=== PATIENT | female | born 1960 | race Caucasian/White ===

== ENCOUNTER 2017-05-25 15:47 | Inpatient (IN) | payer MEDICAID ==
[~2017-05-25] VITALS: Ht 157.5 cm; Wt 74.0 kg
[2017-05-25] VITALS (8 sets, daily range): BP systolic 94–140; BP diastolic 52–90
[~2017-05-25 15:47] MED LIST: ACID1TAB PO; CLIN300C11 PO; CLON1TAB3 PO; CLOP75TA28 PO; DICL100G31 TOP; DIVA250T4 PO; DIVA500T7 PO; DULO30CA48 PO; ERGO50006 PO; FENO145T20 PO; FLUT16SP22 NS; FLUT1AER INH; FURO40TA4 PO; HYDR-3820 PO; HYDR4TAB PO; INSU500V SC; INSU500V SQ; LIPA1CAP PO; LUBI24CA6 PO; METO10TA3 PO; OMEG-105 PO; PANT40TA3 PO; POLY255P PO; POTA10TA10 PO; PRED10TA22 PO; RAME8TAB18 PO; ROSU20TA28 PO; SPIR50TA2 PO; TOPI200T8 PO; ZOLP10TA5 PO
--- NOTE | 2017-05-25 16:02 | ED General ---
General Stated Complaint: HYPOGLYCEMIA Source of Information: Patient, EMS Exam Limitations: Physical Impairments History of Present Illness Time Seen by Provider: 15:47 Initial Comments Here by EMS with report of altered mental status. Family thought that the patient was hypoglycemic. Blood sugar was checked and was in the 80s. They were able to get her to drink some orange juice and blood sugar came up to 110 per EMS. Patient would arouse to strong verbal or sternal rubs. Otherwise does not answer questions. No family here for information. All information per EMS. Apparently she was here and discharged a few days ago after being hospitalized for sepsis. Patient apparently did not want to come to the ER but family was able to talk her into it and ambulance transported. Last known well time was yesterday evening at some point. Apparently she had a fall yesterday per family member who arrived later. Apparently the patient's blood sugar was greater than 500 last night. Timing/Duration: 24 Hours Severity: Moderate, Severe Allergies and Home Medications Allergies Coded Allergies: adhesive tape (Verified Allergy, Unknown, 05/15/17) morphine (Verified Allergy, Unknown, 05/15/17) Home Medications Clindamycin HCl 300 Mg Capsule, 600 MG PO TID for 5 Days, #30 Prescribed by: KARINA DOMÍNGUEZ on 05/20/17 1101 Clonazepam 1 Mg Tablet, 1 MG PO Q8H PRN for ANXIETY, (Reported) Clopidogrel Bisulfate 75 Mg Tablet, 75 MG PO DAILY, (Reported) Diclofenac Sodium 100 Gm Gel..gram., 4 GM TOP DAILY, (Reported) Divalproex Sodium 500 Mg Tablet.dr, 500 MG PO BID, (Reported) TAKES ALONG WITH 250MG TABLET Divalproex Sodium 250 Mg Tablet.dr, 250 MG PO BID, (Reported) TAKES ALONG WITH 500MG TABLET Duloxetine HCl 30 Mg Capsule.dr, 30 MG PO DAILY, (Reported) Ergocalciferol (Vitamin D2) 50,000 Unit Capsule, 50,000 UNITS PO WEEKLY, ( Reported) Fenofibrate Nanocrystallized 145 Mg Tablet, 145 MG PO DAILY, (Reported) Fluticasone Propionate 16 Gm [employer].susp, 2 SPRAYS NS DAILY PRN for ALLERGIES, ( Reported) Fluticasone/Vilanterol 1 Each Blst.w.dev, 1 PUFF INH DAILY, (Reported) Furosemide 40 Mg Tablet, 40 MG PO DAILY, (Reported) Hydrocodone/Acetaminophen 1 Each Tablet, 1 TAB PO Q6H PRN for PAIN-MODERATE, ( Reported) Insulin Regular, Human 20 Ml Soln, 37 UNITS SC HS, (Reported) Insulin Regular, Human 20 Ml Soln, 17 UNITS SQ 1200, (Reported) Insulin Regular, Human 20 Ml Soln, 22 UNITS SQ 1700, (Reported) L. Acidophilus/Bulgaricus 1 Each Tablet, 1 TAB.CHEW PO AC for 14 Days, #42 Prescribed by: KARINA DOMÍNGUEZ on 05/20/17 1101 Lipase/Protease/Amylase 1 Each Capsule.dr, 4,200 UNITS PO TIDAC, (Reported) Lubiprostone 24 Mcg Capsule, 24 MCG PO BID, (Reported) Metoclopramide HCl 10 Mg Tablet, 10 MG PO QID, (Reported) [place]-3 Acid Ethyl Esters 1 Gm Capsule, 2 GM PO BID, (Reported) TAKES 2 (1GM) CAPSULES Pantoprazole Sodium 40 Mg Tablet.dr, 40 MG PO DAILY, (Reported) Polyethylene Glycol 3350 255 Gm Powder, 17 GM PO DAILY PRN for CONSTIPATION-2ND LINE, (Reported) Potassium Chloride 10 Meq Tablet.er, 30 MEQ PO BID, (Reported) TAKES 3 (10MEQ) TABLETS Prednisone 10 Mg Tab.ds.pk, 10 MG PO DAILY, #21 Take 6 tabs(60mg)daily,decrease by 1 tab(10MG)daily. Prescribed by: KARINA DOMÍNGUEZ on 05/20/17 1101 Ramelteon 8 Mg Tablet, 8 MG PO HS, (Reported) Rosuvastatin Calcium 20 Mg Tablet, 20 MG PO HS, (Reported) Spironolactone 50 Mg Tablet, 50 MG PO DAILY, (Reported) Topiramate 200 Mg Tablet, 200 MG PO BID, (Reported) Zolpidem Tartrate 10 Mg Tablet, 10 MG PO HS, (Reported) Constitutional: see HPI, weakness Other Unable to complete review of systems due to altered mental status. Past Hwabtdk-Xmbpwf-Dfhwbc Hx Patient Social History Smoking Status: Current Everyday Smoker Type Used: Cigarettes Recent Hopitalizations: No Seasonal Allergies Seasonal Allergies: Yes Surgeries History of Surgeries: Yes Surgeries: Gallbladder, Hysterectomy, Orthopedic Respiratory History of Respiratory Disorde: Yes Respiratory Disorders: COPD Cardiovascular History of Cardiac Disorders: Yes (STENT X4 ?) Cardiac Disorders: High Cholesterol, Hypertension Neurological History of Neurological Disord: Yes Neurological Disorders: Seizure Disorder, Stroke Genitourinary History of Genitourinary Disor: Yes Genitourinary Disorders: Bladder Infection, Renal Failure Gastrointestinal History of Gastrointestinal Di: Yes Gastrointestinal Disorders: Gastroesophageal Reflux, Pancreatitis Musculoskeletal History of Musculoskeletal Dis: Yes Musculoskeletal Disorders: Arthritis Endocrine History of Endocrine Disorders: Yes Endocrine Disorders: Diabetes, Non-Insulin dep HEENT History of HEENT Disorders: No Cancer History of Cancer: No Psychosocial History of Psychiatric Problem: Yes Behavioral Health Disorders: Depression Integumentary History of Skin or Integumenta: No Reviewed Nursing Assessment Reviewed/Agree w Nursing PMH: Yes Family Medical History Significant Family History: No Pertinent Family Hx Other History per records as patient is unable to give history. Physical Exam-Suspected Sepsis Physical Exam Vital Signs Vital Sign - Last 12Hours 05/25/17 16:05 Temp 98.2 Pulse 68 Resp 14 B/P (MAP) 125/73 Pulse Ox 90 O2 Delivery Room Air Capillary Refill : General Appearance: No Apparent Distress, WD/WN HEENT: PERRL/EOMI, Pharynx Normal Neck: Non Tender, Supple Respiratory: Lungs Clear, Normal Breath Sounds Cardiovascular: Regular Rate, Rhythm, No Murmur Gastrointestinal: Non Tender, Soft Back: Normal Inspection, No CVA Tenderness, No Vertebral Tenderness Extremity: Normal Capillary Refill, No Calf Tenderness Neurologic/Psychiatric: Other (response to strong verbal and/or light sternal rub and mumbling. She did answer her name.) Skin: normal color, warm/dry Focused Exam Evaluation Lactate Level Laboratory Tests 05/25/17 16:33: Lactic Acid Level 1.98 Lactic Acid Level Laboratory Tests Test 05/25/17 16:33 Lactic Acid Level 1.98 MMOL/L (0.50-2.00) Date of ETT Placement: May 15, 2017 Time of ETT Placement: 1312 Progress/Results/Core Measures Suspected Sepsis SIRS Temperature: Pulse: Respiratory Rate: Laboratory Tests 05/25/17 16:33: White Blood Count 21.3H Blood Pressure / Mean: Laboratory Tests 05/25/17 16:33: Lactic Acid Level 1.98 Laboratory Tests 05/25/17 16:33: Creatinine 0.97, INR Comment 1.0, Platelet Count 587H, Total Bilirubin 0.3 Results/Orders Lab Results Laboratory Tests Test 05/25/17 16:20 05/25/17 16:33 05/25/17 16:35 05/25/17 16:46 Range/Units Blood Gas Puncture Site RIGHT RADIAL Blood Gas Patient Temperature 97.8 Arterial Blood pH 7.44 H 7.37-7.43 Arterial Blood Partial Pressure CO2 48 H 35-45 MMHG Arterial Blood Partial Pressure O2 58 L 79-93 MMHG Arterial Blood HCO3 32 H 23-27 MMOL/L Arterial Blood Total CO2 33.2 H 21.0-31.0 MMOL/L Arterial Blood Oxygen Saturation 92 L 94-100 % Arterial Blood Base Excess 7.3 H -2.5-2.5 MMOL/L Shantanu Test POSITIVE Blood Gas Ventilator Setting NO Blood Gas Inspired Oxygen ROOM AIR White Blood Count 21.3 H 4.3-11.0 10^3/uL Red Blood Count 5.55 4.35-5.85 10^6/uL Hemoglobin 13.4 11.5-16.0 G/DL Hematocrit 43 35-52 % Mean Corpuscular Volume 78 L 80-99 FL Mean Corpuscular Hemoglobin 24 L 25-34 PG Mean Corpuscular Hemoglobin Concent 31 L 32-36 G/DL Red Cell Distribution Width 18.5 H 10.0-14.5 % Platelet Count 587 H 130-400 10^3/uL Mean Platelet Volume 10.4 7.4-10.4 FL Neutrophils (%) (Auto) 81 H 42-75 % Lymphocytes (%) (Auto) 12 12-44 % Monocytes (%) (Auto) 6 0-12 % Eosinophils (%) (Auto) 1 0-10 % Basophils (%) (Auto) 0 0-10 % Neutrophils # (Auto) 17.3 H 1.8-7.8 X 10^3 Lymphocytes # (Auto) 2.6 1.0-4.0 X 10^3 Monocytes # (Auto) 1.2 H 0.0-1.0 X 10^3 Eosinophils # (Auto) 0.1 0.0-0.3 10^3/uL Basophils # (Auto) 0.0 0.0-0.1 10^3/uL Neutrophils % (Manual) 76 % Lymphocytes % (Manual) 22 % Monocytes % (Manual) 2 % Eosinophils % (Manual) 0 % Basophils % (Manual) 0 % Band Neutrophils 0 % Blood Morphology Comment NORMAL Prothrombin Time 13.2 12.2-14.7 SEC INR Comment 1.0 0.8-1.4 Activated Partial Thromboplast Time 25 24-35 SEC D-Dimer < 0.27 0.00-0.49 UG/ML Sodium Level 142 135-145 MMOL/L Potassium Level 3.5 L 3.6-5.0 MMOL/L Chloride Level 98 98-107 MMOL/L Carbon Dioxide Level 32 21-32 MMOL/L Anion Gap 12 5-14 MMOL/L Blood Urea Nitrogen 26 H 7-18 MG/DL Creatinine 0.97 0.60-1.30 MG/DL Estimat Glomerular Filtration Rate 59 BUN/Creatinine Ratio 27 Glucose Level 50 *L 70-105 MG/DL Lactic Acid Level 1.98 0.50-2.00 MMOL/L Calcium Level 9.3 8.5-10.1 MG/DL Total Bilirubin 0.3 0.1-1.0 MG/DL Aspartate Amino Transf (AST/SGOT) 14 5-34 U/L Alanine Aminotransferase (ALT/SGPT) 11 0-55 U/L Alkaline Phosphatase 58 40-136 U/L Total Protein 6.1 L 6.4-8.2 GM/DL Albumin 3.2 3.2-4.5 GM/DL Urine Color YELLOW Urine Clarity CLEAR Urine pH 7 5-9 Urine Specific [place] 1.010 L 1.016-1.022 Urine Protein NEGATIVE NEGATIVE Urine Glucose (UA) 3+ H NEGATIVE Urine Ketones NEGATIVE NEGATIVE Urine Nitrite NEGATIVE NEGATIVE Urine Bilirubin NEGATIVE NEGATIVE Urine Urobilinogen NORMAL NORMAL MG/DL Urine Leukocyte Esterase NEGATIVE NEGATIVE Urine RBC (Auto) NEGATIVE NEGATIVE Urine RBC NONE /HPF Urine WBC 2-5 /HPF Urine Crystals NONE /LPF Urine Bacteria NEGATIVE /HPF Urine Casts NONE /LPF Urine Mucus NEGATIVE /LPF Urine Yeast LARGE H /HPF Urine Culture Indicated YES My Orders Orders - JUAN JOSÉ YEUNG MD Cbc With Automated Diff (05/25/17 15:57) Comprehensive Metabolic Panel (05/25/17 15:57) Lactic Acid Analyzer (05/25/17 15:57) Blood Culture (05/25/17 15:57) Sputum Culture (05/25/17 15:57) Ua Culture If Indicated (05/25/17 15:57) Protime With Inr (05/25/17 15:57) Partial Thromboplastin Time (05/25/17 15:57) Chest 1 View, Ap/Pa Only (05/25/17 15:57) O2 (05/25/17 15:57) Saline Lock/Iv-Start (05/25/17 15:57) Vital Signs Adult Sepsis Patie Q1HR (05/25/17 15:57) Remove Rings In Anticipation O (05/25/17 15:57) Fibrin Degradation Products (05/25/17 15:57) Catheter(Urinary) Insert & Ass 03,15 (05/25/17 15:57) Vital Signs - Stroke Q15M (05/25/17 15:57) Monitor-Rhythm Ecg Trace Only (05/25/17 15:57) Dysphagia Screening Tool (05/25/17 15:57) Arterial Blood Gas (05/25/17 16:07) Naloxone Injection (Narcan Injection) (05/25/17 16:45) Manual Differential (05/25/17 16:33) Urine Culture (05/25/17 16:46) Ct Head Wo-R/O Stroke (05/25/17 17:05) D50w (Emergency) Syringe (Dextrose 50% 5 (05/25/17 17:15) D50w (Emergency) Syringe (Dextrose 50% 5 (05/25/17 16:58) Ct Angio Head/Neck (05/25/17 17:40) Valproic Acid (05/25/17 18:05) Medications Given in ED Current Medications Medications Dose Ordered Sig/Marsha Route Start Time Stop Time Status Last Admin Dose Admin Naloxone HCl 1 mg ONCE ONCE IV 05/25/17 16:45 05/25/17 16:46 DC 05/25/17 16:50 1 MG Vital Signs/I&O Vital Sign - Last 12Hours 05/25/17 16:05 Temp 98.2 Pulse 68 Resp 14 B/P (MAP) 125/73 Pulse Ox 90 O2 Delivery Room Air Capillary Refill : Progress Note : Progress Note Seen and evaluated on arrival by EMS. IV via port access by EMS. Labs, ABG, EKG, chest x-ray, blood cultures and lactic acid ordered. We will evaluate for stroke as well as CT head. Monitor patient. 1700: Narcan 1 mg IV given and had no effect. Blood sugar noted to be 50 and chemistry that was delayed draw due to difficulty getting blood draw. D50 [address] Domínguez at bedside and is writing orders. Patient will be admitted for altered mental status. Family at bedside. I did discuss with him about the case. Last known well time was last night. Outside of TPA window if stroke his the event. To be admitted to the ICU. Family at bedside agrees with plan. Patient is maintaining her own airway and O2 sats remained greater than 93 percent on 2 L via nasal cannula. Respiratory rate 12 to 15. Blood pressure 115/69. 1740: Discussed with radiology. There is a question of a filling defect on the internal carotid artery. Radiology is recommending contrast study for MRI. We will attempt CT angiogram head and neck. Patient will need IV access. 1755: Dr. Domínguez updated. To be admitted to ICU. Family agrees with plan. ECG Initial ECG Impression Date: May 25, 2017 Initial ECG Impression Time: 15:52 Initial ECG Rate: 68 Initial ECG Rhythm: Normal Sinus Comment Sinus rhythm with normal axis. No evidence of ST elevation PR. Similar to previous of 05/15/17. Interpreted by me. Diagnostic Imaging Diagonstic Imaging: Xray Plain Films/CT/US/NM/MRI: chest Comments [place], [place] NAME: MARINO GREGORY MED REC#: [id number] PT STATUS: REG ER : 1960 PHYSICIAN: JUAN JOSÉ YEUNG MD ADMIT DATE: 05/25/17/ER Draft Date of Exam:05/25/17 CHEST 1 VIEW, AP/PA ONLY INDICATION: Unresponsive patient. COMPARISON: 05/18/2017. FINDINGS: A right subclavian line is at the SVC, stable. Infiltrate in the right lung while present has substantially improved from the previous. There is some mild left basilar atelectasis. IMPRESSION: Significant improvements in infiltrate in the right lower greater than upper lobes with no adverse development. Dictated on workstation # [id number] Dict: 05/25/17 1644 Trans: 05/25/17 1652 [facility] [id number] Interpreted by: AWAIS STAFFORD Electronically signed by: Diagonstic Imaging: CT Plain Films/CT/US/NM/MRI: head Comments NAME: MARINO GREGORY MED REC#: [id number] PT STATUS: REG ER : 1960 PHYSICIAN: JUAN JOSÉ YEUNG MD ADMIT DATE: 05/25/17/ER Draft Date of Exam:05/25/17 CT HEAD WO-R/O STROKE INDICATION: Unresponsive in emergency department. EXAMINATION: Multiple contiguous axial CT images of the head were obtained. COMPARISON: Study of 07/15/2016. FINDINGS: Ventricles and sulci remain diffusely prominent. There is no evidence of hemorrhage. There is no abnormal mass effect or shift of midline structures. There is asymmetry in the appearance of the distal internal carotid arteries with artifact in this region resulting in limited evaluation. There is no territorial infarct. There is no abnormal mass effect or shift of midline structures. Calvarium is intact and the visualized paranasal sinuses are clear. IMPRESSION: Asymmetry in the appearance of distal internal carotid arteries. This could be related to abnormal flow. If indicated, contrast-enhanced study or MRI could be considered. Dictated on workstation # [id number] Dict: 05/25/17 1734 Trans: 05/25/17 1739 [facility] [id number] Interpreted by: AWAIS FUNG MD Electronically signed by: Reviewed: Reviewed/Discussed Departure Communication (Admissions) Time/Spoke to Admitting Phy: 16:45 Impression Impression: Primary Impression: Altered mental status Qualified Codes: R40.1 - Stupor Disposition: 09 ADMITTED INPATIENT Condition: Stable Admissions Decision to Admit Reason: Admit from ER (General) Decision to Admit/Date: May 25, 2017 Time/Decision to Admit Time: 16:45 Departure-Patient Inst. Referrals: NO,LOCAL PHYSICIAN (PCP/Family) Primary Care Physician JUAN JOSÉ YEUNG MD May 25, 2017 16:02
[2017-05-25 16:29] LABS: ABG BASE EXCESS 7.3 MMOL/L (-2.5-2.5); ABG HCO3 32 MMOL/L (23-27); ABG OXYGEN SATURATION 92 % (94-100); ABG PCO2 48 MMHG (35-45); ABG PH 7.44 (7.37-7.43); ABG PO2 58 MMHG (79-93); ABG TCO2 33.2 MMOL/L (21.0-31.0)
[2017-05-25 16:30] LABS: ALLENS TEST POSITIVE; PATIENT TEMP 97.8
[2017-05-25 16:42] LABS: BASOPHILS % (AUTO) 0 % (0-10); EOSINOPHILS # (AUTO) 0.1 10^3/uL (0.0-0.3); EOSINOPHILS % (AUTO) 1 % (0-10); LYMPHOCYTES # (AUTO) 2.6 X 10^3 (1.0-4.0); LYMPHOCYTES % (AUTO) 12 % (12-44); MEAN CORPUSCULAR HEMOGLOBIN 24 PG (25-34); MEAN CORPUSCULAR HGB CONC 31 G/DL (32-36); MEAN CORPUSCULAR VOLUME 78 FL (80-99); MEAN PLATELET VOLUME 10.4 FL (7.4-10.4); MONOCYTES # (AUTO) 1.2 X 10^3 (0.0-1.0); MONOCYTES % (AUTO) 6 % (0-12); NEUTROPHILS # (AUTO) 17.3 X 10^3 (1.8-7.8); NEUTROPHILS % (AUTO) 81 % (42-75); PLATELET COUNT 587 10^3/uL (130-400); RED BLOOD COUNT 5.55 10^6/uL (4.35-5.85); RED CELL DISTRIBUTION WIDTH 18.5 % (10.0-14.5); WHITE BLOOD COUNT 21.3 10^3/uL (4.3-11.0)
[2017-05-25] MEDS ORDERED: NALOXONE 2 MG/2 ML (NARCAN) SYR IV ONE (16:45)
[2017-05-25 16:50] LABS: PROTHROMBIN TIME PATIENT 13.2 SEC (12.2-14.7)
[2017-05-25 16:51] LABS: PARTIAL THROMBOPLASTIN TIME 25 SEC (24-35)
[2017-05-25 16:53] LABS: BILIRUBIN,URINE NEGATIVE (NEGATIVE); KETONES,URINE NEGATIVE (NEGATIVE); LEUKOCYTE ESTERASE ,URINE NEGATIVE (NEGATIVE); NITRITE,URINE NEGATIVE (NEGATIVE); PH,URINE 7 (5-9); PROTEIN,URINE NEGATIVE (NEGATIVE); UROBILINOGEN,URINE NORMAL (NORMAL)
--- NOTE | 2017-05-25 16:53 | Diagnostic Imaging Report ---
INDICATION: Unresponsive patient. COMPARISON: 05/18/2017. FINDINGS: A right subclavian line is at the SVC, stable. Infiltrate in the right lung while present has substantially improved from the previous. There is some mild left basilar atelectasis. IMPRESSION: Significant improvements in infiltrate in the right lower greater than upper lobes with no adverse development. Dictated by: Dictated on workstation # [id number]
--- NOTE | 2017-05-25 16:54 | History & Physical-Hospitalist ---
HPI History of Present Illness: HPI/Chief Complaint Pt is a 56yoCF known to me from recent admission for sepsis 2/2 CAP with a PMH of HTN, CAD and [place], chronic opoid use, and seizure disorder who presented to the ER for decreased LOC. She is unable to provide me any history due to her mentation. History is obtained from ED records and previous records. She was admitted this week for acute respiratory failure due to CAP and accidental narcotic overdose. She necessitated intubation. She apparently worsened her mentation today and family thought her blood sugar was low. They called EMS due to her decreased LOC and gave her some orange juice. Her FSBS was 88 per EMS and improved to low 100s on recheck. She was given 0.4mg of Narcan with minimal improvement. She was admitted to the ICU for her decreased LOC. Daughter arrived after initial evaluation and reported that her mom had not had any medications today besides her depakote. Pt has been staying with her boyfriend and he called the daughter and stated that patient fell at either 11pm last night or 11am this morning and then had been somnolent. Daughter also thinks he may have given her too much insulin on accident as she's now on the concentrated U-500 version because he called her as said that when he checked patient's blood sugar it was 38 before he called EMS. Exam Limitations: clinical condition Date Seen 05/25/17 Time Seen by Provider: 16:30 Attending Physician Karina Domínguez PCP No,Local Physician Referring Physician Date of Admission Home Medications & Allergies Home Medications Reviewed patient Home Medication Reconciliation Form Allergies Allergies Coded Allergies adhesive tape (Verified Allergy, Unknown, 05/15/17) morphine (Verified Allergy, Unknown, 05/15/17) Past Uijsrmd-Fxksra-Kdklua Hx Patient Social History Alcohol Use: Denies Use Recreational Drug Use: No Smoking Status: Current Everyday Smoker Type Used: Cigarettes Recent Foreign Travel: No Contact w/other who traveled: No Recent Hopitalizations: No Recent Infectious Disease Expo: No Immunizations Up To Date Tetanus Booster (TDap): Unknown Seasonal Allergies Seasonal Allergies: Yes Surgeries Yes Gallbladder, Hysterectomy, Orthopedic Respiratory Yes COPD, Sleep Apnea Cardiovascular Yes (STENT X4 ?) High Cholesterol, Hypertension Neurological Yes Seizure Disorder, Stroke Genitourinary Yes Bladder Infection, Renal Failure Gastrointestinal Yes Gastroesophageal Reflux, Pancreatitis Musculoskeletal Yes Arthritis Endocrine History of Endocrine Disorders: Yes Endocrine Disorders: Diabetes, Non-Insulin dep HEENT History of HEENT Disorders: No Cancer No Psychosocial History of Psychiatric Problem: Yes Behavioral Health Disorders: Depression Integumentary History of Skin or Integumenta: No Review of Systems ROS-Unable to Obtain: Obtunded Constitutional: no symptoms reported Physical Exam Physical Exam Vital Signs Vital Sign - Last 12Hours 05/25/17 16:05 Temp 98.2 Pulse 68 Resp 14 B/P (MAP) 125/73 Pulse Ox 90 O2 Delivery Room Air Capillary Refill : Less Than 3 Seconds General Appearance: Other (minimally responsive) HEENT: PERRL/EOMI, Moist Mucous Membranes, No Scleral Icterus (L), No Scleral Icterus (R) Neck: Non Tender, Supple Respiratory: Lungs Clear, Normal Breath Sounds Cardiovascular: Regular Rate, Rhythm, No JVD, No Murmur, Normal Peripheral Pulses Gastrointestinal: Normal Bowel Sounds, Non Tender, Soft Extremity: Normal Capillary Refill Neurologic/Psychiatric: Other (arouses to very loud verbal stimuli and physical stimuli) Skin: Normal Color, Warm/Dry, No Mottled Results Results/Procedures Lab Laboratory Tests 05/25/17 16:33 Assessment/Plan Admission Diagnosis Altered Mental Status Diagnosis/Problems Diagnosis/Problems (1) Altered mental status Assessment & Plan: Etiology unclear at this time Will get CT head Does have elevated white count but no other signs of sepsis No significant hypercapnea on ABG, does not appear to be overdose Likely due to hypoglycemia from possible inadverent overdose on insulin eICU consulted overnight Qualifiers: Qualified Codes: R40.1 - Stupor (2) Hypoglycemia Status: Acute Assessment & Plan: D50 given in ER Will start on D51/2NS overnight SSI ordered if needed as daughter reports BS normally very high (3) Essential (primary) hypertension Status: Chronic (4) Seizure disorder Status: Chronic Assessment & Plan: Depakote level pending Only medicine given today (5) Leukocytosis Status: Acute Assessment & Plan: No signs of infection (UA clean, no fever, CXR slightly improved from last admission per my read) Trend Recently finished steroids (6) Prophylactic measure Assessment & Plan: NPO given mentation D5 1/2NS 20KCL at 100ml/hr KARINA DOMÍNGUEZ MD May 25, 2017 16:53
[2017-05-25 16:58] LABS: ALBUMIN 3.2 GM/DL (3.2-4.5); BILIRUBIN,TOTAL 0.3 MG/DL (0.1-1.0); CALCIUM 9.3 MG/DL (8.5-10.1); CREATININE SERUM 0.97 MG/DL (0.60-1.30); POTASSIUM 3.5 MMOL/L (3.6-5.0); TOTAL PROTEIN 6.1 GM/DL (6.4-8.2)
[2017-05-25] MEDS ORDERED: DEXTROSE 50% 50 ML (IMS) SYR ONE (16:58)
[2017-05-25 17:04] LABS: YEAST,URINE LARGE /HPF
[2017-05-25 17:14] LABS: BAND NEUTROPHILS 0 %; BASOPHILS % (MANUAL) 0 %; EOSINOPHILS % (MANUAL) 0 %; LYMPHOCYTES % (MANUAL) 22 %; NEUTROPHILS % (MANUAL) 76 %
[2017-05-25] MEDS ORDERED: DEXTROSE 50% 50 ML (IMS) SYR IV ONE (17:15)
--- NOTE | 2017-05-25 17:39 | Diagnostic Imaging Report ---
INDICATION: Unresponsive in emergency department. EXAMINATION: Multiple contiguous axial CT images of the head were obtained. COMPARISON: Study of 07/15/2016. FINDINGS: Ventricles and sulci remain diffusely prominent. There is no evidence of hemorrhage. There is no abnormal mass effect or shift of midline structures. There is asymmetry in the appearance of the distal internal carotid arteries with artifact in this region resulting in limited evaluation. There is no territorial infarct. There is no abnormal mass effect or shift of midline structures. Calvarium is intact and the visualized paranasal sinuses are clear. IMPRESSION: Asymmetry in the appearance of distal internal carotid arteries. This could be related to abnormal flow. If indicated, contrast-enhanced study or MRI could be considered. Dictated by: Dictated on workstation # [id number]
[2017-05-25] MEDS ORDERED: IOHEXOL 350 MG/ML 100 ML (OMNIPAQUE 350) VIAL IV ONE (18:45)
[2017-05-25] MEDS ORDERED: NS 100 ML (IVPB) BAG IV ONE (18:45)
--- NOTE | 2017-05-25 19:10 | Diagnostic Imaging Report ---
PROCEDURE: CT angiography of the head and CT angiography of the neck with and without contrast. TECHNIQUE: Contiguous noncontrast images were obtained from the skull base through the vertex. After intravenous contrast administration, helical CT angiography of the neck was performed. Source data was reformatted into multiple MIP projections. Delayed post contrast acquisition was also obtained. INDICATION: Unresponsive and abnormal CT scan of the head. CTA head: There is good opacification of the distal internal carotid arteries and the basilar artery without stenosis or filling defect. Middle, anterior and posterior cerebral arteries are also patent. There is no evidence of aneurysm or vascular malformation. No abnormal contrast enhancement is identified. IMPRESSION: Unremarkable CT of the head. CTA neck: There is a normal three-vessel branching pattern arising from the aortic arch. Note is made of groundglass opacity throughout the visualized lung apices and mildly prominent mediastinal lymph nodes. Carotid and vertebral arteries are widely patent in the neck without evidence of significant stenosis. There is no occlusion or filling defect identified. No neck fluid collection or hematoma is identified. IMPRESSION: No CTA evidence of acute vascular abnormality in the neck. Note is made of groundglass opacity in the lung apices which may be related to pneumonitis or possible scarring. There are also mildly prominent lymph nodes in the upper mediastinum. Dictated by: Dictated on workstation # [id number]
[2017-05-25] MEDS ORDERED: MELATONIN 3 MG TABLET PO PRN (19:45)
[2017-05-25] MEDS ORDERED: ACETAMINOPHEN 500 MG TAB (TYLENOL) PO PRN (19:45)
[2017-05-25] MEDS: D5 1/2 NS W/KCL 20 MEQ/L 1,000 ML IV SCH (19:57)
[2017-05-25] MEDS ORDERED: RT-ALBUTEROL SULF 2.5 MG/3 ML PRE-MIX VIAL IH PRN (20:00)
[2017-05-25] MEDS ORDERED: RT-ALBUTEROL SULF 2.5 MG/3 ML PRE-MIX VIAL ONE (20:33)
[2017-05-25] MEDS: RT-ALBUTEROL SULF 2.5 MG/3 ML PRE-MIX VIAL IH SCH (20:53)
[2017-05-25] MEDS: inSUlin ASPART (NovoLOG) 1 UNIT/0.01 ML (CHARGE PER UNIT) SC SCH (21:09)
[2017-05-26] VITALS (13 sets, daily range): BP systolic 91–129; BP diastolic 58–74
[2017-05-26] MEDS: RT-ALBUTEROL SULF 2.5 MG/3 ML PRE-MIX VIAL IH SCH ×4 (03:00→22:06)
[2017-05-26 04:55] LABS: ALANINE AMINOTRANSFERASE 9 U/L (0-55); ALBUMIN 2.9 GM/DL (3.2-4.5); ANION GAP 8 MMOL/L (5-14); ASPARTATE AMINO TRANSFERASE 11 U/L (5-34); BILIRUBIN,TOTAL 0.3 MG/DL (0.1-1.0); BLOOD UREA NITROGEN 26 MG/DL (7-18); BUN/CREATININE RATIO 28; CARBON DIOXIDE 27 MMOL/L (21-32); CHLORIDE 102 MMOL/L (98-107); CREATININE SERUM 0.94 MG/DL (0.60-1.30); GFR ESTIMATED > 60; GLUCOSE 224 MG/DL (70-105); MAGNESIUM 1.3 MG/DL (1.8-2.4); PHOSPHORUS 2.8 MG/DL (2.3-4.7); SODIUM 137 MMOL/L (135-145); TOTAL PROTEIN 5.4 GM/DL (6.4-8.2)
[2017-05-26 05:00] LABS: BASOPHILS % (AUTO) 0 % (0-10); EOSINOPHILS # (AUTO) 0.2 10^3/uL (0.0-0.3); EOSINOPHILS % (AUTO) 1 % (0-10); LYMPHOCYTES % (AUTO) 15 % (12-44); MEAN CORPUSCULAR HEMOGLOBIN 24 PG (25-34); MEAN CORPUSCULAR HGB CONC 31 G/DL (32-36); MEAN CORPUSCULAR VOLUME 77 FL (80-99); MEAN PLATELET VOLUME 10.5 FL (7.4-10.4); MONOCYTES # (AUTO) 1.5 X 10^3 (0.0-1.0); MONOCYTES % (AUTO) 7 % (0-12); NEUTROPHILS % (AUTO) 76 % (42-75); PLATELET COUNT 598 10^3/uL (130-400); RED BLOOD COUNT 5.05 10^6/uL (4.35-5.85); RED CELL DISTRIBUTION WIDTH 18.3 % (10.0-14.5); WHITE BLOOD COUNT 19.6 10^3/uL (4.3-11.0)
[2017-05-26] MEDS: D5 1/2 NS W/KCL 20 MEQ/L 1,000 ML IV SCH (05:45)
[2017-05-26] MEDS: KCL 20 MEQ TAB (K-DUR) PO SCH ×2 (05:45→09:27)
[2017-05-26] MEDS ORDERED: MAGNESIUM 1 GM/100 ML IVPB 100 ML IV SCH (06:00)
[2017-05-26] MEDS ORDERED: POTASSIUM CL 10MEQ/50ML IVPB 50 ML IV SCH (06:00)
[2017-05-26] MEDS: inSUlin ASPART (NovoLOG) 1 UNIT/0.01 ML (CHARGE PER UNIT) SC SCH ×4 (06:17→20:17)
[2017-05-26] MEDS: MAGNESIUM 1 GM/100 ML IVPB 100 ML IV SCH ×4 (06:17→09:27)
[2017-05-26] MEDS: DIVALPROEX 500 MG DELAYED RELEASE (DEPAKOTE) TAB PO SCH ×2 (09:26→20:17)
[2017-05-26] MEDS: DIVALPROEX 250 MG DELAYED RELEASE (DEPAKOTE) TAB PO SCH ×2 (09:26→20:17)
[2017-05-26] MEDS: toPIRamate 100 MG (TOPAMAX) TAB PO SCH ×2 (09:27→20:17)
--- NOTE | 2017-05-26 10:13 | Progress Note-Hospitalist ---
Subjective HPI/CC On Admission Date Seen by Provider: May 26, 2017 Time Seen by Provider: 09:50 Subjective/Events-last exam Pt reports feeling better. Remembers nothing from yesterday. She would like to DC today. We discussed his living situation and my concern about her safety at home without better supervision and administration of medications. I recommended SNF placement which she adamantly denied. She imformed she she wanted to DC today because it took an hour and a half to get a box of Kleenexes. I informed her that she would have to sign out AMA to leave but she declined. She elected to stay given plans of transferring to floor. Objective Exam Vital Signs Vital Sign - Last 12Hours 05/25/17 16:05 Temp 98.2 Pulse 68 Resp 14 B/P (MAP) 125/73 Pulse Ox 90 O2 Delivery Room Air O2 Flow Rate 3.00 Capillary Refill : Less Than 3 Seconds General Appearance: No Apparent Distress, WD/WN, Obese Respiratory: Lungs Clear, No Respiratory Distress Cardiovascular: No Murmur Gastrointestinal: Normal Bowel Sounds, Non Tender, Soft Extremity: Non Tender, No Calf Tenderness Neurologic/Psychiatric: Alert, Oriented x3 Results/Procedures Lab Laboratory Tests 05/25/17 16:33 05/26/17 04:20 Assessment/Plan Assessment and Plan Assess & Plan/Chief Complaint Hypoglycemia Diagnosis/Problems Diagnosis/Problems (1) Altered mental status Status: Resolved Assessment & Plan: Etiology unclear at this time No apparent CVA on CT head or CTA Does have elevated white count but no other signs of sepsis No significant hypercapnea on ABG, does not appear to be overdose Likely due to hypoglycemia from possible inadverent overdose on insulin I discussed frankly with her that she needs better management of medications at home, recommended placement at SNU but she declined Will consult Social Work for assistance with DC planning Qualifiers: Qualified Codes: R40.1 - Stupor (2) Hypoglycemia Status: Resolved Assessment & Plan: Resolved SSI ordered if needed Would benefit from DC-ing u500 and possibly even attempting control with only basal insulin given medication difficulties (3) Essential (primary) hypertension Status: Chronic Assessment & Plan: Well controlled off meds, will hold (4) Seizure disorder Status: Chronic Assessment & Plan: Will resume Depakote and Topamax (5) Leukocytosis Status: Acute Assessment & Plan: No signs of infection (UA clean, no fever, CXR slightly improved from last admission per my read) Trend Recently finished steroids (6) Prophylactic measure Assessment & Plan: Carb Controlled diet Saline Lock KARINA DIAZ MD May 26, 2017 10:13
--- NOTE | 2017-05-26 12:06 | Diagnostic Imaging Report ---
EXAMINATION: Chest radiograph, portable AP view. DATE: May 26, 2017 at 0505 hours. INDICATION: 56-year-old female, altered mental status. COMPARISON: May 25, 2017. FINDINGS: Stable overall appearance of the cardiomediastinal silhouette. There is a redemonstrated right-sided port catheter. There is no identified pneumothorax. There is no large pleural effusion. There are interstitial opacities in the right lung with improved alveolar consolidation in the right upper lobe compared to prior exam. There is unchanged right lower lobe airspace consolidation. IMPRESSION: 1. Redemonstrated interstitial opacities most notable in the right lung with persistent but improved alveolar consolidation in the right upper lobe. Unchanged right lower lobe airspace consolidation. Dictated by: Dictated on workstation # [id number]
[2017-05-26] MEDS ORDERED: ACID1TAB PO (15:04)
[2017-05-26] MEDS ORDERED: HYDR4TAB PO (15:04)
[2017-05-26] MEDS ORDERED: CALCIUM CARBONATE 500 MG (TUMS) TAB.CHEW PO SCH (22:15)
[2017-05-26] MEDS ORDERED: CALCIUM CARBONATE 500 MG (TUMS) TAB.CHEW PO PRN (22:30)
[2017-05-27 00:39] VITALS: BP 107/67
[2017-05-27] MEDS: RT-ALBUTEROL SULF 2.5 MG/3 ML PRE-MIX VIAL IH SCH ×2 (02:57→07:01)
[2017-05-27 04:07] VITALS: BP 122/84
[2017-05-27] MEDS: inSUlin ASPART (NovoLOG) 1 UNIT/0.01 ML (CHARGE PER UNIT) SC SCH ×2 (06:09→11:56)
[2017-05-27 06:51] LABS: BASOPHILS % (AUTO) 0 % (0-10); EOSINOPHILS # (AUTO) 0.2 10^3/uL (0.0-0.3); EOSINOPHILS % (AUTO) 1 % (0-10); LYMPHOCYTES # (AUTO) 3.2 X 10^3 (1.0-4.0); LYMPHOCYTES % (AUTO) 23 % (12-44); MEAN CORPUSCULAR HEMOGLOBIN 24 PG (25-34); MEAN CORPUSCULAR HGB CONC 32 G/DL (32-36); MEAN CORPUSCULAR VOLUME 77 FL (80-99); MEAN PLATELET VOLUME 10.3 FL (7.4-10.4); MONOCYTES % (AUTO) 7 % (0-12); NEUTROPHILS # (AUTO) 9.5 X 10^3 (1.8-7.8); NEUTROPHILS % (AUTO) 69 % (42-75); PLATELET COUNT 554 10^3/uL (130-400); RED BLOOD COUNT 4.94 10^6/uL (4.35-5.85); RED CELL DISTRIBUTION WIDTH 18.7 % (10.0-14.5); WHITE BLOOD COUNT 13.8 10^3/uL (4.3-11.0)
[2017-05-27 07:14] LABS: CALCIUM 9.2 MG/DL (8.5-10.1); CREATININE SERUM 1.07 MG/DL (0.60-1.30); MAGNESIUM 1.9 MG/DL (1.8-2.4); POTASSIUM 3.8 MMOL/L (3.6-5.0)
[2017-05-27] MEDS: toPIRamate 100 MG (TOPAMAX) TAB PO SCH (08:46)
[2017-05-27] MEDS: DIVALPROEX 250 MG DELAYED RELEASE (DEPAKOTE) TAB PO SCH (08:46)
[2017-05-27] MEDS: DIVALPROEX 500 MG DELAYED RELEASE (DEPAKOTE) TAB PO SCH (08:46)
--- NOTE | 2017-05-27 12:11 | Discharge Instructions ---
Discharge Instructions Patient Instructions Patient Instructions: Resume the medications as listed on your discharge sequence. As you worked tauGHT the units on your insulin represent the marking on the U100 syringe and therefore your insulin units are 5 times that I am concerned about the 185 units of insulin that you take at bedtime and the danger of insulin reaction during the sleeping hours. I believe you need to see your biomedical engineering director soon to fine-tune these issues. [facility]: Recurrent symptoms Activity & Diet Discharge Diet: ADA Diet Activity as Tolerated: Yes DANA MORALES MD May 27, 2017 12:11
--- NOTE | 2017-05-27 12:17 | Progress Note-Hospitalist ---
Standard Progress Note Progress Notes/Assess & Plan Date Seen 05/27/17 Time Seen by Provider: 12:12 Diagnosis Altered Mental Status Assess & Plan/Chief Complaint The patient is fully alert and oriented. She is eager to be discharged. She assures me that she has all of the medications necessary for her at home. She and I agreed that the most likely cause of her admission was hypoglycemia secondary to high-dose and possibly incorrect dose of U500 insulin. It Is reinforced that she needs to see her academic program specialist soon Physical exam: She is alert and animated. O2 is in place. Her face appears generally puffy. Lungs are clear to auscultation. CV is regular without murmur. Impression: Likely hypoglycemic reaction Plan: Dismissed. See discharge sequence. Labs Laboratory Tests 05/25/17 16:33 05/26/17 04:20 05/27/17 06:17 Final Diagnosis 1.nocturnal insulin reaction causing altered mental status. 2.type I diabetes with insulin resistance and high-dose insulin requirements. 3.COPD. 4.recent pneumonia. 5.alimentary dysfunction with hypomotility and pancreatic insufficiency. DANA MORALES MD May 27, 2017 12:16
[2017-05-27 12:36] VITALS: BP 122/84
== END 2017-05-27 12:37 | disposition home or self-care (01) | DRG 918 ==
LOC: EDUNIT# 15:47 → ER 15:48 → ICU 16:45 → 4TH 05-26 11:22
PROVIDERS: ADMIT Family Medicine; ATTEND Family Medicine
DX: T38.3X1A Poisoning by insulin and oral hypoglycemic [antidiabetic] drugs, accidental (unintentional), initial encounter (principal); E10.649 Type 1 diabetes mellitus with hypoglycemia without coma; J44.9 Chronic obstructive pulmonary disease, unspecified; K86.89 Other specified diseases of pancreas; E78.00 Pure hypercholesterolemia, unspecified; I10 Essential (primary) hypertension; G40.909 Epilepsy, unspecified, not intractable, without status epilepticus; K21.9 Gastro-esophageal reflux disease without esophagitis; F32.9 Major depressive disorder, single episode, unspecified; F17.210 Nicotine dependence, cigarettes, uncomplicated; Z79.4 Long term (current) use of insulin; Z95.5 Presence of coronary angioplasty implant and graft
CPT/HCPCS: 36415; 51702; 70450; 70496; 70498; 71010; 80048; 80053; 80164; 81000; 82805; 82962; 83605; 83735; 84100; 85007; 85025; 85027; 85379; 85610; 85730; 87040; 87088; 93005; 93041; 94640; 94664; 94760

== ENCOUNTER → 2017-12-23 | Outpatient (CLI) | payer MEDICAID ==
[~2017-12-23] MED LIST changes: -FENO145T20 PO; +FENO145T37 PO; -ROSU20TA28 PO; +ROSU20TA30 PO
--- NOTE | 2017-12-23 11:43 | Diagnostic Imaging Report ---
INDICATION: Voice changes and difficulty swallowing in the last three months. FINDINGS: The patient ingested effervescent crystals as well as thin and thick barium and imaging of the esophagus, stomach and proximal small bowel was performed. 1 minute and 25 seconds of fluoroscopy time was utilized. Preliminary radiograph over the chest demonstrates a right chest wall port with tip overlying the SVC. Esophagus has a fairly smooth contour. There are occasional tertiary contractions present. No esophageal stricture or mass was demonstrated. No hiatal hernia or gastroesophageal reflux was demonstrated. The stomach has a normal configuration. IMPRESSION: Essentially unremarkable barium esophagram. Dictated by: Dictated on workstation # [id number]
== END ==
LOC: RAD 10:43
PROVIDERS: ATTEND Nurse Practitioner
DX: R49.9 Unspecified voice and resonance disorder (principal); R13.10 Dysphagia, unspecified
CPT/HCPCS: 74220

== ENCOUNTER → 2018-02-04 | Outpatient (CLI) | payer MEDICAID ==
[~2018-02-04] MED LIST changes: -CLON1TAB3 PO; +CLON1TAB4 PO; +DIVA-74 PO; +DIVA-76 PO; -DIVA250T4 PO; -DIVA500T7 PO; +IOHEXOL 350 MG/ML 100 ML (OMNIPAQUE 350) VIAL IV ONE; +NS 250 ML (IVPB) BAG IV ONE; -ROSU20TA30 PO; +ROSU20TA31 PO; -SPIR50TA2 PO; +SPIR50TA4 PO
--- NOTE | 2018-02-04 11:34 | Diagnostic Imaging Report ---
PROCEDURE: CT abdomen and pelvis with contrast. TECHNIQUE: Multiple contiguous axial images were obtained through the abdomen and pelvis after administration of intravenous contrast. INDICATION: Abdominal pain. COMPARISON: CT angio performed April 2008. FINDINGS: There is a large amount of colonic stool consistent with an at least urii-nh-xohzfmdv degree of constipation. No focal impaction or resultant bowel obstruction and no substantial dilatation of stool containing large bowel. No pericolonic or perirectal edema. The small bowel is nondilated and nonobstructed. Gallbladder is surgically absent. Chronic mild hepatic steatosis improved. The spleen is unremarkable. The adrenals and pancreas are unremarkable. There is no hydronephrosis. There is severe aortoiliac atherosclerotic disease without aneurysm. No findings of acute end-organ involvement by ischemia. No ascites, abscess, hematoma or other fluid collection. The osseous structures are nonacute. IMPRESSION: Colonic constipation without focal impaction or obstruction. Severe nonaneurysmal atherosclerosis without features of acute end-organ ischemia. Improvements in mild hepatic steatosis. Unobstructed urinary tracts. No inflammatory process, ascites or fluid collection. Dictated by: Dictated on workstation # [id number]
== END ==
LOC: RAD 08:16
PROVIDERS: ATTEND Surgery
DX: K59.00 Constipation, unspecified (principal); I70.90 Unspecified atherosclerosis; K76.0 Fatty (change of) liver, not elsewhere classified
CPT/HCPCS: 74177

== ENCOUNTER 2018-07-24 21:09 | Emergency (ER) | payer MEDICAID ==
[~2018-07-24] VITALS: Ht 152.4 cm; Wt 83.9 kg
[~2018-07-24 21:09] MED LIST changes: +CLON1TAB13 PO; -CLON1TAB4 PO; -IOHEXOL 350 MG/ML 100 ML (OMNIPAQUE 350) VIAL IV ONE; -NS 250 ML (IVPB) BAG IV ONE; -POLY255P PO; +POLY255P16 PO
--- OUTSIDE RECORDS SUMMARY | 2018-07-24 21:14 | XMS REPORT | CCD ---
Author Author MEIR FUCHS Unknown Address [address] [place] [address] Care Team Providers Care Shank Breaker Name Role Phone QUEENIE MARTE DO Attphys Allergies Allergy Code Allergy Type Reaction Status EGGS 0 Drug allergy Active FLUARIX {Deactivated Allergy} 3847373 Drug allergy ADVERSE REACTION, VERY ILL, N/V Active FLUCAINE 920168 Drug allergy Active TAPE 0 Allergy to substance Active MORPHINE 7052 Drug allergy Active PNEUMOVAX 23 663391 Drug allergy Active Active Medications Medication Code Dose Units Frequency Route Modification Start Date/Time ALPRAZolam 1MG Oral Tablet 071424 1 MILLIGRAMS AT BEDTIME ORAL 04/10/2016 11:26 Prescription Detail 1 MILLIGRAMS ORAL AT BEDTIME Aspirin 81MG Oral Tablet, Enteric Coated 643470 81 MILLIGRAMS DAILY ORAL 04/10/2016 11:26 Prescription Detail 81 MILLIGRAMS ORAL DAILY DULoxetine HCl 30MG Oral Capsule, Delayed Release 612216 30 MILLIGRAMS DAILY ORAL 04/10/2016 11:26 Prescription Detail 30 MILLIGRAMS ORAL DAILY Fenofibrate 150MG Oral Capsule 267176 150 MILLIGRAMS DAILY ORAL 04/10/2016 11:26 Prescription Detail 150 MILLIGRAMS ORAL DAILY HumuLIN R 100U/1ML Injection Solution 443690 1 EACH WITH EACH MEAL INJECTION 04/10/2016 11:26 Prescription Detail 1 EACH INJECTION WITH EACH MEAL HYDROcodone bitartrate-acetaminophen 10MG-325MG Oral Tablet 244252 1 EACH NEEDED EVERY 6 HR ORAL 2015 11:26 Prescription Detail 1 EACH ORAL NEEDED EVERY 6 HR HYDROmorphone HCl 4MG Oral Tablet 647323 4 MILLIGRAMS THREE TIMES A DAY ORAL 04/10/2016 11:26 Prescription Detail 4 MILLIGRAMS ORAL THREE TIMES A DAY Lansoprazole 30MG Oral Capsule, Delayed Release 522185 30 MILLIGRAMS DAILY ORAL 04/10/2016 11:26 Prescription Detail 30 MILLIGRAMS ORAL DAILY Lasix 40MG Oral Tablet 605478 40 MILLIGRAMS DAILY ORAL 04/10/2016 11:26 Prescription Detail 40 MILLIGRAMS ORAL DAILY Lyrica 75MG Oral Capsule 794996 75 MILLIGRAMS TWO TIMES A DAY ORAL 04/10/2016 11:26 Prescription Detail 75 MILLIGRAMS ORAL TWO TIMES A DAY Metoclopramide 10MG Oral Tablet 764558 10 MILLIGRAMS FOUR TIMES A DAY ORAL 04/10/2016 11:26 Prescription Detail 10 MILLIGRAMS ORAL FOUR TIMES A DAY Nitroglycerin 0.4MG Sublingual Tablet 558835 0.4 MILLIGRAMS NEEDED SUBLINGUAL 04/10/2016 11:26 Prescription Detail 0.4 MILLIGRAMS SUBLINGUAL NEEDED Star-3 300 MG-675 MG-75 MG Oral Capsule, Liquid Filled 5118721 1 EACH FOUR TIMES A DAY ORAL 04/10/2016 11: 26 Prescription Detail 1 EACH ORAL FOUR TIMES A DAY Phenytoin 100MG Oral Capsule, Extended Release 679531 100 MILLIGRAMS THREE TIMES A DAY ORAL 04/10/2016 11: 26 Prescription Detail 100 MILLIGRAMS ORAL THREE TIMES A DAY Plavix 75MG Oral Tablet 530625 75 MILLIGRAMS DAILY ORAL 04/10/2016 11:26 Prescription Detail 75 MILLIGRAMS ORAL DAILY Potassium Chloride 10MEQ Oral Tablet, Extended Release 400814 10 MEQ FOUR TIMES A DAY ORAL 04/10/2016 11: 26 Prescription Detail 10 MEQ ORAL FOUR TIMES A DAY ProAir HFA 0.09MG/1Actuation Inhalation Suspension 007649 2 PUFF NEEDED EVERY 4 HR INHALATION 2015 11:26 Prescription Detail 2 PUFF INHALATION NEEDED EVERY 4 HR Topiramate 100MG Oral Tablet 151771 100 MILLIGRAMS TWO TIMES A DAY ORAL 04/10/2016 11:26 Prescription Detail 100 MILLIGRAMS ORAL TWO TIMES A DAY traZODone hydrochloride 150MG Oral Tablet 509265 150 MILLIGRAMS DAILY ORAL 04/10/2016 11:26 Prescription Detail 150 MILLIGRAMS ORAL DAILY Zolpidem 10MG Oral Tablet 870113 10 MILLIGRAMS AT BEDTIME ORAL 04/10/2016 11:26 Prescription Detail 10 MILLIGRAMS ORAL AT BEDTIME Losartan Potassium 50MG Oral Tablet 153113 1 TABLET DAILY BY MOUTH 04/10/2016 11:06 Prescription Detail 1 TABLET BY MOUTH DAILY Crestor 20MG Oral Tablet 784002 1 TABLET DAILY BY MOUTH 04/10/2016 11:03 Prescription Detail 1 TABLET BY MOUTH DAILY Pancreaze [id number] Oral Capsule, Delayed Release 3017739 1 TABLET THREE TIMES A DAY BY MOUTH 11:03 Prescription Detail 1 TABLET BY MOUTH THREE TIMES A DAY Problems Problem Code Start Date Resolved Date Status Lower abd pain 03996675 04/08/2016 Active Nausea/vomiting 54959881 04/08/2016 Active Pneumonia 951970074 04/08/2016 Active Procedures Procedure Code Procedure Type Date CT ABD AND PELVIS W/CONTRAST 313529580 SNOMED CT 2016 LIPID PANEL W/LDL 08199800 SNOMED CT 02/16/2017 C REACTIVE [facility]OTE[facility] 70300897 [facility] 02/16/2017 TROPONIN-I ADV 338153472 [facility] CT 02/16/2017 AMYLASE 71810190 [facility] CT 02/16/2017 LIPASE 89831799 [facility] CT 02/16/2017 COMPREHENSIVE METABOLIC PANEL 429709534 [facility] CT 2016 CBC W/ AUTO DIFF (RFLX MAN DIFF IF IND) 6228197 [facility] CT 02/16/2017 ^CBC W/AUTO DIFF 7615672 SNOMED CT 02/16/2017 LOCM 300-349 MG/ML, PER ML 021563201 [facility] CT 02/16/2017 Results AMYLASE - Collect Date/Time: 02/16/2017 19:10 Test Name Code Test Result Test Units Test Ref Range AMYLASE 1798-8 50 IU/L L=25 H=125 COMPREHENSIVE METABOLIC PANEL - Collect Date/Time: 02/16/2017 19:10 Test Name Code Test Result Test Units Test Ref Range GLUCOSE 2345-7 209 MG/DL L=70 H=100 SODIUM 2951-2 133 MEQ/L L=135 H=148 POTASSIUM 2823-3 3.7 MEQ/L L=3.5 H=5.3 CHLORIDE 2075-0 98 MEQ/L L=96 H=110 CO2 2028-9 16 MEQ/L L=22 H=29 BUN 3094-0 16 MG/DL L=8 H=22 CREATININE 2160-0 1.0 MG/DL L=0.6 H=1.6 SGOT/AST 1920-8 23 IU/L L=10 H=40 SGPT/ALT 1742-6 17 IU/L L=8 H=54 ALK PHOS 6768-6 83 IU/L L=35 H=115 TOTAL PROTEIN 2885-2 6.9 G/DL L=5.5 H=8.5 ALBUMIN 1751-7 3.4 G/DL L=3.1 H=5.4 TOTAL BILI 1975-2 0.2 MG/DL L=0.0 H=1.5 CALCIUM 80182-0 9.8 MG/DL L=8.2 H=10.6 AGE 56 yrs GFR NonAA 57 GFR AA 69 eGFR 57 mL/min/1.7 eGFR AA* >60 N/A LIPASE - Collect Date/Time: 02/16/2017 19:10 Test Name Code Test Result Test Units Test Ref Range LIPASE 3040-3 70 U/L L=8 H=78 LIPID PANEL W/LDL - Collect Date/Time: 02/16/2017 19:10 Test Name Code Test Result Test Units Test Ref Range TRIGLYCERIDES 3043-7 3322 MG/DL L=0 H=135 CHOLESTEROL 2093-3 481 MG/DL L=0 H=199 HDL 2085-9 21 MG/DL L=29 H=89 TOT CHOL/HDL 22.9 L=0.0 H=5.0 LDL 2089-1 19 MG/DL L=0 H=129 CBC W/ AUTO DIFF (RFLX MAN DIFF IF IND) - Collect Date/Time: 02/16/2017 19:10 Test Name Code Test Result Test Units Test Ref Range WBC 47257-6 8.1 TH/CMM L=4.5 H=10.8 RBC 789-8 4.83 ML/CMM L=4.20 H=5.40 HGB 718-7 12.5 G/DL L=12.0 H=16.0 HCT 4544-3 39.0 % L=37.0 H=47.0 MCV 81 FL L=81 H=99 MCH 25.9 PG L=27.0 H=33.0 MCHC 32.1 G/DL L=31.0 H=36.0 RDW SD 46 FL L=36 H=50 RDW CV 15.9 % L=0.0 H=14.8 MPV 9.7 FL L=9.3 H=12.5 PLT 777-3 382 TH/CMM L=130 H=440 NRBC# 0.00 TH/CMM L=0.00 H=0.00 NRBC% 0.0 /100WBC L=0.0 H=2.0 %NEUT 62.2 % %LYMP 27.6 % %MONO 7.1 % %EOS 2.0 % %BASO 0.7 % #NEUT 5.06 TH/CMM L=2.10 H=8.20 #LYMP 2.25 TH/CMM L=0.90 H=5.20 #MONO 0.58 TH/CMM L=0.16 H=1.00 #EOS 0.16 TH/CMM L=0.00 H=0.80 #BASO 0.06 TH/CMM L=0.00 H=0.20 MANUAL DIFF NOT IND N/A C REACTIVE PROTEIN - Collect Date/Time: 02/16/2017 19:10 Test Name Code Test Result Test Units Test Ref Range C REACTIVE PROTEIN 1988-5 <0.5 MG/DL L=0.0 H= 1.0 TROPONIN-I ADV - Collect Date/Time: 02/16/2017 19:10 Test Name Code Test Result Test [place] [address]-8 <0.04 ng/mL L=0.04 H= 0.40 Function Status Unknown or Not Available. History of Immunizations Unknown or Not Available. Plan of Treatment Unknown or Not Available. Social History Smoking Status Code Start Date End Date Current every day smoker [id number] Vital Signs Unknown or Not Available. Function Status Unknown or Not Available. Goals Unknown or Not Available. ASSESSMENTS Unknown or Not Available. Health Concerns Section Unknown or Not Available.
--- OUTSIDE RECORDS SUMMARY | 2018-07-24 21:14 | XMS REPORT | CCD ---
Author Author MEIR FUCHS Unknown Address [address] [place] [address] Care Team Providers Care Logging Equipment Mechanic Name Role Phone LENNOX MORENO, DAISY Dumont Attphys Allergies Allergy Code Allergy Type Reaction Status EGGS 0 Drug allergy Active FLUARIX {Deactivated Allergy} 1209865 Drug allergy ADVERSE REACTION, VERY ILL, N/V Active FLUCAINE 245563 Drug allergy Active TAPE 0 Allergy to substance Active MORPHINE 7052 Drug allergy Active PNEUMOVAX 23 482587 Drug allergy Active Active Medications Medication Code Dose Units Frequency Route Modification Start Date/Time ALPRAZolam 1MG Oral Tablet 431758 1 MILLIGRAMS AT BEDTIME ORAL 04/10/2016 11:26 Prescription Detail 1 MILLIGRAMS ORAL AT BEDTIME Aspirin 81MG Oral Tablet, Enteric Coated 033782 81 MILLIGRAMS DAILY ORAL 04/10/2016 11:26 Prescription Detail 81 MILLIGRAMS ORAL DAILY DULoxetine HCl 30MG Oral Capsule, Delayed Release 146122 30 MILLIGRAMS DAILY ORAL 04/10/2016 11:26 Prescription Detail 30 MILLIGRAMS ORAL DAILY Fenofibrate 150MG Oral Capsule 879513 150 MILLIGRAMS DAILY ORAL 04/10/2016 11:26 Prescription Detail 150 MILLIGRAMS ORAL DAILY HumuLIN R 100U/1ML Injection Solution 049272 1 EACH WITH EACH MEAL INJECTION 04/10/2016 11:26 Prescription Detail 1 EACH INJECTION WITH EACH MEAL HYDROcodone bitartrate-acetaminophen 10MG-325MG Oral Tablet 703102 1 EACH NEEDED EVERY 6 HR ORAL 2015 11:26 Prescription Detail 1 EACH ORAL NEEDED EVERY 6 HR HYDROmorphone HCl 4MG Oral Tablet 268641 4 MILLIGRAMS THREE TIMES A DAY ORAL 04/10/2016 11:26 Prescription Detail 4 MILLIGRAMS ORAL THREE TIMES A DAY Lansoprazole 30MG Oral Capsule, Delayed Release 091648 30 MILLIGRAMS DAILY ORAL 04/10/2016 11:26 Prescription Detail 30 MILLIGRAMS ORAL DAILY Lasix 40MG Oral Tablet 714030 40 MILLIGRAMS DAILY ORAL 04/10/2016 11:26 Prescription Detail 40 MILLIGRAMS ORAL DAILY Lyrica 75MG Oral Capsule 644158 75 MILLIGRAMS TWO TIMES A DAY ORAL 04/10/2016 11:26 Prescription Detail 75 MILLIGRAMS ORAL TWO TIMES A DAY Metoclopramide 10MG Oral Tablet 923929 10 MILLIGRAMS FOUR TIMES A DAY ORAL 04/10/2016 11:26 Prescription Detail 10 MILLIGRAMS ORAL FOUR TIMES A DAY Nitroglycerin 0.4MG Sublingual Tablet 534739 0.4 MILLIGRAMS NEEDED SUBLINGUAL 04/10/2016 11:26 Prescription Detail 0.4 MILLIGRAMS SUBLINGUAL NEEDED [place]-3 300 MG-675 MG-75 MG Oral Capsule, Liquid Filled 3181156 1 EACH FOUR TIMES A DAY ORAL 04/10/2016 11: 26 Prescription Detail 1 EACH ORAL FOUR TIMES A DAY Phenytoin 100MG Oral Capsule, Extended Release 668374 100 MILLIGRAMS THREE TIMES A DAY ORAL 04/10/2016 11: 26 Prescription Detail 100 MILLIGRAMS ORAL THREE TIMES A DAY Plavix 75MG Oral Tablet 017180 75 MILLIGRAMS DAILY ORAL 04/10/2016 11:26 Prescription Detail 75 MILLIGRAMS ORAL DAILY Potassium Chloride 10MEQ Oral Tablet, Extended Release 506457 10 MEQ FOUR TIMES A DAY ORAL 04/10/2016 11: 26 Prescription Detail 10 MEQ ORAL FOUR TIMES A DAY ProAir HFA 0.09MG/1Actuation Inhalation Suspension 146216 2 PUFF NEEDED EVERY 4 HR INHALATION 2015 11:26 Prescription Detail 2 PUFF INHALATION NEEDED EVERY 4 HR Topiramate 100MG Oral Tablet 734340 100 MILLIGRAMS TWO TIMES A DAY ORAL 04/10/2016 11:26 Prescription Detail 100 MILLIGRAMS ORAL TWO TIMES A DAY traZODone hydrochloride 150MG Oral Tablet 289587 150 MILLIGRAMS DAILY ORAL 04/10/2016 11:26 Prescription Detail 150 MILLIGRAMS ORAL DAILY Zolpidem 10MG Oral Tablet 510911 10 MILLIGRAMS AT BEDTIME ORAL 04/10/2016 11:26 Prescription Detail 10 MILLIGRAMS ORAL AT BEDTIME Losartan Potassium 50MG Oral Tablet 829382 1 TABLET DAILY BY MOUTH 04/10/2016 11:06 Prescription Detail 1 TABLET BY MOUTH DAILY Crestor 20MG Oral Tablet 952522 1 TABLET DAILY BY MOUTH 04/10/2016 11:03 Prescription Detail 1 TABLET BY MOUTH DAILY Pancreaze [id number] Oral Capsule, Delayed Release 1392635 1 TABLET THREE TIMES A DAY BY MOUTH 11:03 Prescription Detail 1 TABLET BY MOUTH THREE TIMES A DAY Problems Problem Code Start Date Resolved Date Status Lower abd pain 62515451 04/08/2016 Active Nausea/vomiting 06924275 04/08/2016 Active Pneumonia 887969797 04/08/2016 Active Procedures Procedure Code Procedure Type Date CX CHEST [address] 02/22/[address] 02/22/[address] 02/22/2017 COMPREHENSIVE METABOLIC PANEL 214207543 SNOMED CT 2016 CBC W/ AUTO DIFF (RFLX MAN DIFF IF IND) 5133421 SNOMED CT 02/22/2017 ^CBC W/AUTO DIFF 2000767 SNOMED CT 02/22/2017 Results AMYLASE - Collect Date/Time: 02/22/2017 20:57 Test Name Code Test Result Test Units Test Ref Range AMYLASE 1798-8 38 IU/L L=25 H=125 COMPREHENSIVE METABOLIC PANEL - Collect Date/Time: 02/22/2017 20:57 Test Name Code Test Result Test Units Test Ref Range GLUCOSE 2345-7 205 MG/DL L=70 H=100 SODIUM 2951-2 134 MEQ/L L=135 H=148 POTASSIUM 2823-3 2.8 MEQ/L L=3.5 H=5.3 CHLORIDE 2075-0 99 MEQ/L L=96 H=110 CO2 2028-9 19 MEQ/L L=22 H=29 BUN 3094-0 9 MG/DL L=8 H=22 CREATININE 2160-0 1.0 MG/DL L=0.6 H=1.6 SGOT/AST 1920-8 23 IU/L L=10 H=40 SGPT/ALT 1742-6 17 IU/L L=8 H=54 ALK PHOS 6768-6 81 IU/L L=35 H=115 TOTAL PROTEIN 2885-2 6.8 G/DL L=5.5 H=8.5 ALBUMIN 1751-7 3.3 G/DL L=3.1 H=5.4 TOTAL BILI 1975-2 0.2 MG/DL L=0.0 H=1.5 CALCIUM 15423-0 8.4 MG/DL L=8.2 H=10.6 AGE 56 yrs GFR NonAA 57 GFR AA 69 eGFR 57 mL/min/1.7 eGFR AA* >60 N/A LIPASE - Collect Date/Time: 02/22/2017 20:57 Test Name Code Test Result Test Units Test Ref Range LIPASE 3040-3 36 U/L L=8 H=78 CBC W/ AUTO DIFF (RFLX MAN DIFF IF IND) - Collect Date/Time: 02/22/2017 20:57 Test Name Code Test Result Test Units Test Ref Range WBC 04503-5 7.7 TH/CMM L=4.5 H=10.8 RBC 789-8 4.78 ML/CMM L=4.20 H=5.40 HGB 718-7 12.2 G/DL L=12.0 H=16.0 HCT 4544-3 38.5 % L=37.0 H=47.0 MCV 81 FL L=81 H=99 MCH 25.5 PG L=27.0 H=33.0 MCHC 31.7 G/DL L=31.0 H=36.0 RDW SD 48 FL L=36 H=50 RDW CV 16.2 % L=0.0 H=14.8 MPV 9.2 FL L=9.3 H=12.5 PLT 777-3 352 TH/CMM L=130 H=440 NRBC# 0.00 TH/CMM L=0.00 H=0.00 NRBC% 0.0 /100WBC L=0.0 H=2.0 %NEUT 62.8 % %LYMP 27.6 % %MONO 6.3 % %EOS 2.1 % %BASO 0.8 % #NEUT 4.86 TH/CMM L=2.10 H=8.20 #LYMP 2.14 TH/CMM L=0.90 H=5.20 #MONO 0.49 TH/CMM L=0.16 H=1.00 #EOS 0.16 TH/CMM L=0.00 H=0.80 #BASO 0.06 TH/CMM L=0.00 H=0.20 MANUAL DIFF NOT IND N/A Function Status Unknown or Not Available. History of Immunizations Unknown or Not Available. Plan of Treatment Unknown or Not Available. Social History Smoking Status Code Start Date End Date Current every day smoker [id number] Vital Signs Unknown or Not Available. Function Status Unknown or Not Available. Goals Unknown or Not Available. ASSESSMENTS Unknown or Not Available. Health Concerns Section Unknown or Not Available.
--- OUTSIDE RECORDS SUMMARY | 2018-07-24 21:14 | XMS REPORT | CCD ---
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 Name Role Phone QUEENIE MARTE DO Attphys Allergies Allergy Code Allergy Type Reaction Status EGGS 0 Drug allergy Active FLUARIX {Deactivated Allergy} 1064806 Drug allergy ADVERSE REACTION, VERY ILL, N/V Active FLUCAINE 964458 Drug allergy Active TAPE 0 Allergy to substance Active MORPHINE 7052 Drug allergy Active PNEUMOVAX 23 311678 Drug allergy Active Active Medications Medication Code Dose Units Frequency Route Modification Start Date/Time ALPRAZolam 1MG Oral Tablet 702140 1 MILLIGRAMS AT BEDTIME ORAL 04/10/2016 11:26 Prescription Detail 1 MILLIGRAMS ORAL AT BEDTIME Aspirin 81MG Oral Tablet, Enteric Coated 202550 81 MILLIGRAMS DAILY ORAL 04/10/2016 11:26 Prescription Detail 81 MILLIGRAMS ORAL DAILY DULoxetine HCl 30MG Oral Capsule, Delayed Release 991693 30 MILLIGRAMS DAILY ORAL 04/10/2016 11:26 Prescription Detail 30 MILLIGRAMS ORAL DAILY Fenofibrate 150MG Oral Capsule 774252 150 MILLIGRAMS DAILY ORAL 04/10/2016 11:26 Prescription Detail 150 MILLIGRAMS ORAL DAILY HumuLIN R 100U/1ML Injection Solution 919302 1 EACH WITH EACH MEAL INJECTION 04/10/2016 11:26 Prescription Detail 1 EACH INJECTION WITH EACH MEAL HYDROcodone bitartrate-acetaminophen 10MG-325MG Oral Tablet 422447 1 EACH NEEDED EVERY 6 HR ORAL 2015 11:26 Prescription Detail 1 EACH ORAL NEEDED EVERY 6 HR HYDROmorphone HCl 4MG Oral Tablet 455149 4 MILLIGRAMS THREE TIMES A DAY ORAL 04/10/2016 11:26 Prescription Detail 4 MILLIGRAMS ORAL THREE TIMES A DAY Lansoprazole 30MG Oral Capsule, Delayed Release 068784 30 MILLIGRAMS DAILY ORAL 04/10/2016 11:26 Prescription Detail 30 MILLIGRAMS ORAL DAILY Lasix 40MG Oral Tablet 966358 40 MILLIGRAMS DAILY ORAL 04/10/2016 11:26 Prescription Detail 40 MILLIGRAMS ORAL DAILY Lyrica 75MG Oral Capsule 955609 75 MILLIGRAMS TWO TIMES A DAY ORAL 04/10/2016 11:26 Prescription Detail 75 MILLIGRAMS ORAL TWO TIMES A DAY Metoclopramide 10MG Oral Tablet 659863 10 MILLIGRAMS FOUR TIMES A DAY ORAL 04/10/2016 11:26 Prescription Detail 10 MILLIGRAMS ORAL FOUR TIMES A DAY Nitroglycerin 0.4MG Sublingual Tablet 761023 0.4 MILLIGRAMS NEEDED SUBLINGUAL 04/10/2016 11:26 Prescription Detail 0.4 MILLIGRAMS SUBLINGUAL NEEDED [facility]-3 300 MG-675 MG-75 MG Oral Capsule, Liquid Filled 8140539 1 EACH FOUR TIMES A DAY ORAL 04/10/2016 11: 26 Prescription Detail 1 EACH ORAL FOUR TIMES A DAY Phenytoin 100MG Oral Capsule, Extended Release 716645 100 MILLIGRAMS THREE TIMES A DAY ORAL 04/10/2016 11: 26 Prescription Detail 100 MILLIGRAMS ORAL THREE TIMES A DAY Plavix 75MG Oral Tablet 829668 75 MILLIGRAMS DAILY ORAL 04/10/2016 11:26 Prescription Detail 75 MILLIGRAMS ORAL DAILY Potassium Chloride 10MEQ Oral Tablet, Extended Release 903181 10 MEQ FOUR TIMES A DAY ORAL 04/10/2016 11: 26 Prescription Detail 10 MEQ ORAL FOUR TIMES A DAY ProAir HFA 0.09MG/1Actuation Inhalation Suspension 074402 2 PUFF NEEDED EVERY 4 HR INHALATION 2015 11:26 Prescription Detail 2 PUFF INHALATION NEEDED EVERY 4 HR Topiramate 100MG Oral Tablet 013071 100 MILLIGRAMS TWO TIMES A DAY ORAL 04/10/2016 11:26 Prescription Detail 100 MILLIGRAMS ORAL TWO TIMES A DAY traZODone hydrochloride 150MG Oral Tablet 517814 150 MILLIGRAMS DAILY ORAL 04/10/2016 11:26 Prescription Detail 150 MILLIGRAMS ORAL DAILY Zolpidem 10MG Oral Tablet 245813 10 MILLIGRAMS AT BEDTIME ORAL 04/10/2016 11:26 Prescription Detail 10 MILLIGRAMS ORAL AT BEDTIME Losartan Potassium 50MG Oral Tablet 232326 1 TABLET DAILY BY MOUTH 04/10/2016 11:06 Prescription Detail 1 TABLET BY MOUTH DAILY Crestor 20MG Oral Tablet 673826 1 TABLET DAILY BY MOUTH 04/10/2016 11:03 Prescription Detail 1 TABLET BY MOUTH DAILY Pancreaze [id number] Oral Capsule, Delayed Release 2037387 1 TABLET THREE TIMES A DAY BY MOUTH 11:03 Prescription Detail 1 TABLET BY MOUTH THREE TIMES A DAY Problems Problem Code Start Date Resolved Date Status Lower abd pain 61226368 04/08/2016 Active Nausea/vomiting 39600500 04/08/2016 Active Pneumonia 151393274 04/08/2016 Active Procedures Procedure Code Procedure Type Date HAND;MINIMUM 3VWS 94418932 SNOMED CT 02/25/2017 KNEE [address] 02/25/2017 CT HEAD W/O CONTRAST 575972471 SNOMED CT 02/25/2017 CT CERVICAL W/O CONTRAST 984731503 SNOMED CT 02/25/2017 UA ROUTINE C&S IF IND 520016813 SNOMED CT 02/25/[address] 02/25/[address] 02/25/2017 COMPREHENSIVE METABOLIC PANEL 632117208 SNOMED CT 2016 CBC W/ AUTO DIFF (RFLX MAN DIFF IF IND) 2044311 SNOMED CT 02/25/2017 ^UA AUTO DIPSTICK ONLY 215953925 SNOMED CT 02/25/2017 ^CBC W/AUTO DIFF 1033381 SNOMED CT 02/25/2017 Results COMPREHENSIVE METABOLIC PANEL - Collect Date/Time: 02/25/2017 09:35 Test Name Code Test Result Test Units Test Ref Range GLUCOSE 2345-7 166 MG/DL L=70 H=100 SODIUM 2951-2 134 MEQ/L L=135 H=148 POTASSIUM 2823-3 3.4 MEQ/L L=3.5 H=5.3 CHLORIDE 2075-0 97 MEQ/L L=96 H=110 CO2 2028-9 26 MEQ/L L=22 H=29 BUN 3094-0 8 MG/DL L=8 H=22 CREATININE 2160-0 0.9 MG/DL L=0.6 H=1.6 SGOT/AST 1920-8 25 IU/L L=10 H=40 SGPT/ALT 1742-6 20 IU/L L=8 H=54 ALK PHOS 6768-6 84 IU/L L=35 H=115 TOTAL PROTEIN 2885-2 7.4 G/DL L=5.5 H=8.5 ALBUMIN 1751-7 3.8 G/DL L=3.1 H=5.4 TOTAL BILI 1975-2 0.3 MG/DL L=0.0 H=1.5 CALCIUM 16159-1 9.3 MG/DL L=8.2 H=10.6 AGE 56 yrs GFR NonAA 65 GFR AA 79 eGFR >60 N/A eGFR AA* >60 N/A LIPASE - Collect Date/Time: 02/25/2017 09:35 Test Name Code Test Result Test Units Test Ref Range LIPASE 3040-3 23 U/L L=8 H=78 CBC W/ AUTO DIFF (RFLX MAN DIFF IF IND) - Collect Date/Time: 02/25/2017 09:35 Test Name Code Test Result Test Units Test Ref Range WBC 83967-8 8.0 TH/CMM L=4.5 H=10.8 RBC 789-8 5.42 ML/CMM L=4.20 H=5.40 HGB 718-7 13.7 G/DL L=12.0 H=16.0 HCT 4544-3 43.8 % L=37.0 H=47.0 MCV 81 FL L=81 H=99 MCH 25.3 PG L=27.0 H=33.0 MCHC 31.3 G/DL L=31.0 H=36.0 RDW SD 48 FL L=36 H=50 RDW CV 16.2 % L=0.0 H=14.8 MPV 9.6 FL L=9.3 H=12.5 PLT 777-3 374 TH/CMM L=130 H=440 NRBC# 0.00 TH/CMM L=0.00 H=0.00 NRBC% 0.0 /100WBC L=0.0 H=2.0 %NEUT 69.7 % %LYMP 21.4 % %MONO 6.4 % %EOS 1.5 % %BASO 0.6 % #NEUT 5.58 TH/CMM L=2.10 H=8.20 #LYMP 1.71 TH/CMM L=0.90 H=5.20 #MONO 0.51 TH/CMM L=0.16 H=1.00 #EOS 0.12 TH/CMM L=0.00 H=0.80 #BASO 0.05 TH/CMM L=0.00 H=0.20 MANUAL DIFF NOT IND N/A UA ROUTINE C&S IF IND - Collect Date/Time: 02/25/2017 10:33 Test Name Code Test Result Test Units Test Ref Range COLOR YELLOW N/A NL: YELLOW APPEARANCE CLEAR N/A NL: CLEAR SPEC GRAV 1.010 N/A NL: 1.002 - 1.022 pH 6.5 N/A NL: 5 - 9 PROTEIN NEGATIVE N/A NL: NEGATIVE mg/dl GLUCOSE NEGATIVE N/A NL: NEGATIVE mg/dl KETONE NEGATIVE N/A NL: NEGATIVE mg/dl BILIRUBIN NEGATIVE N/A NL: NEGATIVE BLOOD NEGATIVE N/A NL: NEGATIVE NITRITE NEGATIVE N/A NL: NEGATIVE LEUK SCREEN NEGATIVE N/A NL: NEGATIVE MICRO INDICATED? NOT INDICATED N/A AMYLASE - Collect Date/Time: 02/25/2017 09:35 Test Name Code Test Result Test Units Test Ref Range AMYLASE 1798-8 34 IU/L L=25 H=125 Function Status Unknown or Not Available. History of Immunizations Unknown or Not Available. Plan of Treatment Unknown or Not Available. Social History Smoking Status Code Start Date End Date Current every day smoker [id number] Vital Signs Unknown or Not Available. Function Status Unknown or Not Available. Goals Unknown or Not Available. ASSESSMENTS Unknown or Not Available. Health Concerns Section Unknown or Not Available.
--- OUTSIDE RECORDS SUMMARY | 2018-07-24 21:19 | XMS REPORT ---
Demographics Address [address] [place] [address] Preferred Language Thai Marital Status Adventist Affiliation Unknown Race White Ethnic Group Not or Author Author Viet Ji [facility] Address [address] [place], [place] [id number] Care Team Providers Care Blueprint Processor Name Role Phone Viet Ji PCP Viet Ji PreferredProvider Allergies and Adverse Reactions Name Reaction Notes Morphine Sulfate Tape Plan of Treatment Planned Activity Comments Planned Date Planned Time Plan/Goal CT HEAD W/WO CONTRAST 04/26/2015 12:00 AM CBC With Auto Differential 06/15/2015 12:00 AM Chest x-ray, PA and lateral 06/15/2015 12:00 AM CRP 06/15/2015 12:00 AM URINALYSIS ONLY 09/04/2015 12:00 AM Complete abdominal ultrasound 09/08/2015 12:00 AM Lumbar Spine 2-3 Views - Main 11/02/2015 12:00 AM CBC With Auto Differential 11/17/2015 12:00 AM CMP 11/17/2015 12:00 AM Hemoglobin A1C 11/17/2015 12:00 AM CHARY (Ankle Brachial Index). 12/20/2016 12:00 AM Dilantin 01/17/2017 12:00 AM BMP 04/10/2012 12:00 AM BMP 08/19/2012 12:00 AM CBC With Auto Differential 08/19/2012 12:00 AM CBC With Auto Differential 06/12/2018 12:00 AM CMP 06/12/2018 12:00 AM Chest x-ray, PA and lateral 06/12/2018 12:00 AM MAGNESIUM. 06/12/2018 12:00 AM Depakote 06/12/2018 12:00 AM Shoulder Min 2Views - Main 06/12/2018 12:00 AM Abdominal radiographs, complete (including decubitus/erect views) 2013 12:00 AM Comprehensive metabolic panel 07/29/2013 12:00 AM Urine Culture, [place] Count 07/29/2013 12:00 AM diabetic check copd, dyspnea. Dr Spicer appt 05/21 @ 1:45pm Brain (including stem), MRI w and w/o contrast 06/02/2014 12:00 AM hoarseness Medications Active Name Start Date Estimated Completion Date SIG Comments nitroglycerin 400 mcg/spray translingual spray,non-aerosol place 1 spray (0.4 mg) by translingual route onto or under the tongue at the first sign of an attack; no more than 3 sprays are recommended within a 15 minute period. Glucagon Emergency Kit (human) 1 mg injection kit 05/21/2012 use as directed. Pancreaze 4,200-10,000- 17,500 unit oral capsule,delayed release(DR/EC) 2013 TAKE ONE CAPSULE BY MOUTH THREE TIMES DAILY BEFORE MEALS trazodone 150 mg oral tablet 08/13/2013 TAKE 1 TABLET BY MOUTH AT BEDTIME NEEDED FOR INSOMNIA zolpidem 10 mg oral tablet 08/13/2013 TAKE 1 TABLET BY MOUTH AT BEDTIME FOR INSOMNIA topiramate 100 mg oral tablet 10/12/2013 TAKE 1 TABLET BY MOUTH TWICE DAILY Lyrica 75 mg oral capsule 10/12/2013 TAKE 1 CAPSULE BY MOUTH TWICE DAILY levofloxacin 500 mg oral tablet 10/26/2013 TAKE 1 TABLET BY MOUTH EVERY DAY FOR 7 DAYS levofloxacin 500 mg oral tablet 11/10/2013 TAKE 1 TABLET BY MOUTH EVERY DAY FOR 7 DAYS Pancreaze 4,200-10,000- 17,500 unit oral capsule,delayed release(DR/EC) 2013 TAKE ONE CAPSULE BY MOUTH THREE TIMES DAILY BEFORE MEALS Lyrica 75 mg oral capsule 11/12/2013 TAKE 1 CAPSULE BY MOUTH TWICE DAILY topiramate 100 mg oral tablet 12/09/2013 TAKE 1 TABLET BY MOUTH TWICE DAILY trazodone 150 mg oral tablet 12/29/2013 TAKE 1 TABLET BY MOUTH AT BEDTIME NEEDED FOR INSOMNIA omega-3 acid ethyl esters 1 gram oral capsule 12/29/2013 TAKE 4 CAPSULES BY MOUTH EVERY DAY levofloxacin 500 mg oral tablet 01/06/2014 TAKE 1 TABLET BY MOUTH EVERY DAY FOR 7 DAYS levofloxacin 500 mg oral tablet 01/11/2014 TAKE 1 TABLET BY MOUTH EVERY DAY FOR 7 DAYS Lyrica 75 mg oral capsule 03/12/2014 TAKE 1 CAPSULE BY MOUTH TWICE DAILY alprazolam 1 mg oral tablet 03/12/2014 TAKE 1 TABLET BY MOUTH EVERY 8 HOURS NEEDED lansoprazole 30 mg oral capsule,delayed release(DR/EC) 10/22/2014 TAKE 1 CAPSULE BY MOUTH EVERY DAY Lyrica 75 mg oral capsule 12/21/2014 TAKE 1 CAPSULE BY MOUTH TWICE DAILY Pancreaze 4,200-10,000- 17,500 unit oral capsule,delayed release(DR/EC) 2014 TAKE ONE CAPSULE BY MOUTH THREE TIMES DAILY BEFORE MEALS TRUEBALANCE STRIPS 09/07/2015 USE DIRECTED Voltaren 1 % topical gel 10/04/2015 APPLY 4 GMS TO THE AFFECTED AREA EVERY DAY Topamax 200 mg oral tablet take 1 tablet (200 mg) by oral route 2 times per day zolpidem 10 mg oral tablet 01/17/2016 TAKE 1 TABLET BY MOUTH AT BEDTIME FOR INSOMNIA alprazolam 1 mg oral tablet 01/24/2016 TAKE 1 TABLET BY MOUTH EVERY 8 HOURS NEEDED Lyrica 75 mg oral capsule 01/24/2016 take 1 capsule (75 mg) by oral route 2 times per day omega-3 acid ethyl esters 1 gram oral capsule 01/24/2016 TAKE 4 CAPSULES BY MOUTH EVERY DAY Zofran ODT 4 mg oral tablet,disintegrating 01/27/2016 dissolve 1 tablet by oral route every 8 hours as needed losartan 50 mg oral tablet take 1 tablet (50 mg) by oral route once daily Repatha SureClick 140 mg/mL subcutaneous pen injector 04/24/2016 inject 1 milliliter (140 mg) by subcutaneous route every 2 weeks in the abdomen, thigh, or outer area of upper arm (rotate sites) Amitiza 24 mcg oral capsule 05/24/2016 TAKE 1 CAPSULE BY MOUTH TWICE DAILY WITH FOOD AND WATER ProAir HFA 90 mcg/actuation inhalation HFA aerosol inhaler 07/26/2016 INHALE 2 PUFFS BY MOUTH FOUR TIMES DAILY NEEDED Nebulizer 07/31/2016 as directed losartan 50 mg oral tablet 09/21/2016 TAKE 1 TABLET BY MOUTH ONCE EVERY DAY *TRUE METRIX TEST STRIPS - [facility] 09/21/2016 USE DIRECTED Zofran (as hydrochloride) 4 mg oral tablet take 1 tablet every 8hr prn nausea Depakote 500 mg oral tablet,delayed release (DR/EC) take 1 tablet (500 mg) by oral route 2 times per day Shyam PattersonoStar 300 unit/mL (1.5 mL) subcutaneous insulin pen inject by subcutaneous route as per insulin protocol Amitiza 24 mcg oral capsule 07/10/2017 TAKE 1 CAPSULE BY MOUTH TWICE DAILY WITH FOOD AND WATER Tessalon Perles 100 mg oral capsule 09/17/2017 take 1 capsule (100 mg) by oral route 3 times per day as needed for cough ProAir HFA 90 mcg/actuation inhalation HFA aerosol inhaler 10/01/2017 INHALE 2 PUFFS BY MOUTH FOUR TIMES DAILY NEEDED Pancreaze 4,200-14,200- 24,600 unit oral capsule,delayed release(DR/EC) 201709/09/2018 TAKE ONE CAPSULE BY MOUTH THREE TIMES DAILY BEFORE MEALS Breo Ellipta 100-25 mcg/dose inhalation blister with device 10/14/20172018 INHALE ONE PUFF BY MOUTH ONCE DAILY pantoprazole 40 mg oral tablet,delayed release (DR/EC) 10/15/2017 10/10/2018 TAKE 1 TABLET BY MOUTH ONCE EVERY DAY fenofibrate nanocrystallized 145 mg oral tablet 11/05/2017 TAKE 1 TABLET BY MOUTH EVERY DAY duloxetine 30 mg oral capsule,delayed release(DR/EC) 11/05/2017 TAKE 1 CAPSULE BY MOUTH DAILY Tessalon Perles 100 mg oral capsule 11/08/2017 take 1 capsule (100 mg) by oral route 3 times per day as needed for cough CONTOUR NEXT MEDIC TST/STRP 50 11/15/2017 DIRECTED amitriptyline 10 mg oral tablet 01/06/2018 TAKE 1 TABLET BY MOUTH DAILY AT BEDTIME Vitamin D2 50,000 unit oral capsule 02/03/2018 TAKE 1 CAPSULE BY MOUTH ONCE WEEKLY FOR 8 WEEKS Rozerem 8 mg oral tablet 02/03/2018 TAKE 1 TABLET BY MOUTH AT BEDTIME polyethylene glycol 3350 17 gram/dose oral powder 02/03/2018 USE 17 GRAMS EVERY MORNING DIRECTED potassium chloride 10 mEq oral tablet extended release 02/03/2018 TAKE 3 TABLETS BY MOUTH TWICE DAILY topiramate 200 mg oral tablet 02/03/2018 TAKE 1 TABLET BY MOUTH TWICE DAILY fluticasone 50 mcg/actuation nasal spray,suspension 02/03/2018 INSTILL 2 SPRAYS EACH NOSTRIL ONEC EVERY DAY NEEDED clopidogrel 75 mg oral tablet 03/06/2018 TAKE ONE TABLET BY MOUTH DAILY furosemide 40 mg oral tablet 03/07/2018 TAKE 1 TABLET BY MOUTH ONCE DAILY benzonatate 100 mg oral capsule 03/07/2018 TAKE 1 CAPSULE BY MOUTH THREE TIMES DAILY NEEDED FOR COUGH promethazine 25 mg oral tablet 03/18/2018 TAKE 1 TABLET BY MOUTH EVERY SIX HOURS NEEDED FOR NAUSEA Klonopin 1 mg oral tablet 03/19/2018 take 1 tablet every 8hr as needed. metoclopramide HCl 10 mg oral tablet 04/03/2018 TAKE 1 TABLET BY MOUTH FOUR TIMES DAILY CONTOUR NEXT MEDIC TST/STRP 50 04/03/2018 DIRECTED diclofenac sodium 1 % topical gel 04/11/2018 APPLY 4 GMS TO AFFECTED AREA(S ) EVERY DAY zolpidem 10 mg oral tablet 05/06/2018 TAKE 1 TABLET BY MOUTH AT BEDTIME nystatin 100,000 unit/gram topical cream 06/12/2018 06/26/2018 apply to the affected area(s) by topical route 2 times per day for 14 days Dilaudid 4 mg oral tablet 06/12/2018 take 1 tablet every 8hr as needed hydrocodone-acetaminophen 10-325 mg oral tablet 06/12/2018 07/12/2018 take 1 tablet by oral route every 6 hours as needed for pain for 30 days Name Start Date Expiration Date SIG Comments Augmentin 875-125 mg oral tablet 06/22/2009 07/06/2009 take 1 tablet by oral route every 12 hours for 14 days diazepam 5 mg oral tablet 08/03/2009 08/18/2009 TAKE 1 TABLET BY MOUTH EVERY 8 HOURS NEEDED [place] 10-325 mg oral tablet 10/31/2009 01/29/2010 take 1-2 tablets by oral route 4 times a day Flexeril 10 mg oral tablet 10/31/2009 12/30/2009 take 1 tablet (10 mg) by oral route 3 times per day for 30 days Zofran (as hydrochloride) 4 mg oral tablet 01/17/2010 01/18/2010 take 2 tablets by oral route once Zithromax Z-Ishan 250 mg oral tablet 06/06/2010 06/16/2010 take 2 tablets (500 mg) by oral route once daily for 1 day then 1 tablet (250 mg) by oral route once daily for 4 days Pancrease MT-4 4,000-12,000- 12,000 unit oral capsule,delayed release(DR/EC) 06/30/2010 07/30/2010 TAKE ONE CAPSULE BY MOUTH THREE TIMES DAILY BEFORE MEALS Xanax 1 mg oral tablet 08/24/2010 08/24/2010 take 1 tablet by oral route 3 times a day as needed Advair Diskus 100-50 mcg/dose inhalation blister with device 08/24/20102010 INHALE 1 PUFF BY MOUTH TWICE DAILY aspirin 81 mg oral tablet,delayed release (DR/EC) 10/31/2010 11/30/2010 TAKE 1 TABLET BY MOUTH DAILY Lortab 7.5-500 mg oral tablet 11/06/2010 11/06/2010 take 1 tablet by oral route every 6 hours as needed for pain Aldactone 25 mg oral tablet take 1 tablet (25 mg) by oral route once daily Premarin 0.625 mg/gram vaginal cream 01/03/2011 03/04/2011 apply 0.5 applicatorful (0.625 mg/g) by vaginal route 2 times a week for 30 days Medrol (Ishan) 4 mg oral tablets,dose pack take as directed for 7 days triamcinolone acetonide 0.5 % topical cream 03/16/2011 03/16/2011 apply a thin layer to the affected area(s) by topical route 3 times per day amitriptyline 50 mg oral tablet 03/20/2011 04/19/2011 TAKE 1 TABLET BY MOUTH AT BEDTIME Plavix 75 mg oral tablet 06/05/2011 07/05/2011 TAKE ONE TABLET DAILY Zithromax Z-Ishan 250 mg oral tablet take 2 tablets (500 mg) by oral route once daily for 1 day then 1 tablet (250 mg) by oral route once daily for 4 days ondansetron HCl 4 mg oral tablet 11/20/2011 11/22/2011 TAKE 1-2 TABLETS BY MOUTH EVERY SIX HOURS NEEDED FOR NAUSEA AND VOMITING trazodone 150 mg oral tablet 11/20/2011 12/20/2011 TAKE 1 TABLET BY MOUTH AT BEDTIME NEEDED FOR INSOMNIA lisinopril 5 mg oral tablet 11/20/2011 12/20/2011 TAKE 1 TABLET BY MOUTH EVERY DAY Crestor 5 mg oral tablet 01/21/2012 08/18/2012 take 1 tablet (5 mg) by oral route once daily for 30 days metoclopramide HCl 10 mg oral tablet 06/02/2012 07/02/2012 TAKE 1 TABLET BY MOUTH FOUR TIMES DAILY clopidogrel 75 mg oral tablet 07/03/2012 08/02/2012 TAKE ONE TABLET BY MOUTH DAILY polyethylene glycol 3350 17 gram/dose oral powder 07/21/2012 11/22/2012 USE 17 GRAMS EVERY MORNING DIRECTED linzess oral 145mcg 07/23/2012 07/23/2012 take 1 capsule daily Medrol (Ishan) 4 mg oral tablets,dose pack 08/19/2012 08/31/2012 take as directed for 6 days Levaquin 500 mg oral tablet 08/28/2012 09/11/2012 take 1 tablet (500 mg) by oral route once daily for 7 days fludrocortisone 0.1 mg oral tablet 10/14/2012 02/11/2013 take 1 tablet by oral route daily for 30 days lansoprazole 30 mg oral capsule,delayed release(DR/EC) 10/22/2012 11/21/2012 TAKE 1 CAPSULE BY MOUTH EVERY DAY hydrocodone-acetaminophen 7.5-500 mg oral tablet 12/30/2012 01/29/2013 TAKE 1 TABLET BY MOUTH EVERY 6 HOURS NEEDED FOR PAIN fenofibrate nanocrystallized 145 mg oral tablet 03/02/2013 04/01/2013 TAKE 1 TABLET BY MOUTH EVERY DAY Pancreaze 4,200-10,000- 17,500 unit oral capsule,delayed release(DR/EC) 201205/02/2013 TAKE ONE CAPSULE BY MOUTH THREE TIMES DAILY BEFORE MEALS Lovaza 1 gram oral capsule 04/02/2013 05/02/2013 TAKE 4 CAPSULES BY MOUTH EVERY DAY levofloxacin 500 mg oral tablet 04/20/2013 05/04/2013 take 1 tablet by oral route daily for 7 days Apidra 100 unit/mL subcutaneous solution 10/30/2012 11/29/2012 INJECT 25 UNITS SUBCUTANEOUS BEFORE MEALS Lantus 100 unit/mL subcutaneous solution 10/30/2012 11/24/2012 INJECT 120 UNITS DIRECTED EVERY DAY gabapentin 300 mg oral capsule 07/29/2012 08/28/2012 TAKE 1 CAPSULE BY MOUTH THREE TIMES DAILY topiramate 100 mg oral tablet 06/03/2013 07/03/2013 TAKE 1 TABLET BY MOUTH TWICE DAILY Zithromax Z-Ishan 250 mg oral tablet 06/26/2013 07/01/2013 take 2 tablets ( 500 mg) by oral route once daily for 1 day then 1 tablet (250 mg) by oral route once daily for 4 days trazodone 150 mg oral tablet 07/21/2013 08/20/2013 TAKE 1 TABLET BY MOUTH AT BEDTIME NEEDED FOR INSOMNIA furosemide 40 mg oral tablet 09/14/2013 04/12/2014 TAKE 1 TABLET BY MOUTH DAILY [facility] CONTOUR TEST STRIPS 05/13/2014 08/21/2014 USE DIRECTED (UP TO 2 TIMES DAILY ) Levaquin 500 mg oral tablet 12/24/2014 12/31/2014 take 1 tablet (500 mg) by oral route once daily for 7 days Augmentin 875-125 mg oral tablet 01/06/2015 01/13/2015 take 1 tablet by oral route every 12 hours for 7 days Topamax 50 mg oral tablet 01/06/2015 05/06/2015 take 1 tablet (50 mg) by oral route 2 times per day for 30 days Dilantin Kapseal 100 mg oral capsule 04/20/2015 05/20/2015 take 2 capsules ( 200 mg) by oral route 3 times per day for 30 days Spiriva Respimat 2.5 mcg/actuation inhalation mist 04/20/2015 08/18/2015 inhale 2 puffs (5 mcg) by inhalation route once daily at the same time each day for 30 days Levaquin 500 mg oral tablet 06/15/2015 06/22/2015 take 1 tablet (500 mg) by oral route once daily for 7 days ProAir HFA 90 mcg/actuation inhalation HFA aerosol inhaler 07/05/20152015 inhale 2 puffs by inhalation route 4 times a day as needed for 30 days Cipro 500 mg oral tablet 09/04/2015 09/11/2015 Take 1 tab PO BID x 7 days phenazopyridine 200 mg oral tablet 09/04/2015 09/06/2015 take 1 tablet (200 mg ) by oral route 3 times per day after meals for 2 days as needed OxyContin 80 mg oral tablet,oral only,ext.rel.12 hr 10/17/2015 11/16/2015 1 po bid amoxicillin 500 mg oral capsule 11/02/2015 11/12/2015 take 2 capsules by oral route 3 times a day for 5 days Protonix 40 mg oral tablet,delayed release (DR/EC) 11/02/2015 09/27/2016 take 1 tablet (40 mg) by oral route once daily for 30 days Movantik 25 mg oral tablet 11/17/2015 03/16/2016 take 1 tablet (25 mg) by oral route once daily in the morning for 30 days Amitiza 24 mcg oral capsule 12/29/2015 04/27/2016 take 1 capsule (24 mcg) by oral route 2 times per day with food and water for 30 days doxycycline hyclate 100 mg oral tablet 04/02/2016 04/09/2016 take 1 tablet bid x 7days Levaquin 500 mg oral tablet 05/01/2016 05/08/2016 take 1 tablet (500 mg) by oral route once daily for 7 days amoxicillin 400 mg/5 mL oral suspension for reconstitution 06/14/20162015 take 10 milliliters by oral route every 12 hours for 7 days Carafate 100 mg/mL oral suspension 06/14/2016 10/12/2016 take 10 milliliters by oral route 3 times a day for 30 days zolpidem 10 mg oral tablet 07/25/2016 11/22/2016 TAKE 1 TABLET BY MOUTH AT BEDTIME FOR INSOMNIA albuterol sulfate 2.5 mg /3 mL (0.083 %) inhalation solution for nebulization 07/26/2016 04/22/2017 USE 2 VIALS VIA NEBULIZER THREE-FOUR TIMES DAILY NEEDED for 30 days Lovaza 1 gram oral capsule 07/31/2016 11/28/2016 take 2 capsules (2 gram) by oral route 2 times per day for 30 days amoxicillin 875 mg oral tablet 10/16/2016 10/26/2016 take 1 tablet (875 mg) by oral route every 12 hours for 10 days Lyrica 75 mg oral capsule 11/20/2016 03/20/2017 take 1 capsule (75 mg) by oral route 2 times per day for 30 days Cipro 500 mg oral tablet 12/31/2016 01/07/2017 take 1 tablet (500 mg) by oral route 2 times per day for 7 days spironolactone 50 mg oral tablet 02/28/2017 10/26/2017 take 1 tablet (50 mg) by oral route once daily for 30 days gabapentin 800 mg oral tablet 03/21/2017 07/19/2017 TAKE 1 TABLET BY MOUTH THREE TIMES DAILY clopidogrel 75 mg oral tablet 04/11/2017 03/07/2018 TAKE ONE TABLET BY MOUTH DAILY furosemide 40 mg oral tablet 04/15/2017 04/15/2017 TAKE 1 TABLET BY MOUTH ONCE DAILY rosuvastatin 20 mg oral tablet 05/15/2017 05/10/2018 TAKE 1 TABLET BY MOUTH ONCE EVERY DAY Cipro 500 mg oral tablet 06/18/2017 06/25/2017 take 1 tablet (500 mg) by oral route every 12 hours for 7 days Compazine 10 mg oral tablet 06/25/2017 06/25/2017 take 1 tablet by oral route 4 times a day as needed metoclopramide HCl 10 mg oral tablet 08/15/2017 12/13/2017 TAKE 1 TABLET BY MOUTH FOUR TIMES DAILY omega-3 acid ethyl esters 1 gram oral capsule 09/16/2017 01/14/2018 TAKE 2 CAPSULES BY MOUTH TWICE DAILY topiramate 200 mg oral tablet 09/16/2017 02/13/2018 TAKE 1 TABLET BY MOUTH TWICE DAILY Cipro 500 mg oral tablet 12/25/2017 01/01/2018 take 1 tablet (500 mg) by oral route every 12 hours for 7 days Ambien 10 mg oral tablet 01/07/2018 05/07/2018 take 1 tablet (10 mg) by oral route once daily at bedtime for 30 days Movantik 25 mg oral tablet 04/17/2018 05/15/2018 take 1 tablet (25 mg) by oral route once daily in the morning for 28 days Discontinued Name Start Date Discontinued Date SIG Comments Xanax 0.5 mg oral tablet 06/21/2009 02/02/2010 take 1 tablet (0.5 mg) by oral route 3 times per day Apidra SoloStar 100 unit/mL subcutaneous insulin pen 02/02/2010 Medrol (Ishan) 4 mg oral tablets,dose pack 12/05/2009 02/02/2010 take as directed Creon 5 124 mg (5,000- 18.7K-16K unit) oral capsule,delayed release(DR/EC) 02/02/2010 take 2 capsules by oral route 3 times per day with meals and 2 capsules with each snack Percocet 10-325 mg oral tablet 01/17/2010 02/02/2010 take 1 tablet by oral route every 6 hours as needed hydromorphone 2 mg oral tablet 03/21/2010 take 2 tablets by oral route ,q 3 hrs/PRN x 2 weeks niacin 500 mg oral tablet 01/11/2012 1 daily Pancrease MT-10 10,000-30,000 -30,000 unit oral capsule,delayed release(DR/EC) 01/11/2012 1 capsule TID Senokot 8.6 mg oral tablet 12/25/2011 1 tab bid Colace 100 mg oral capsule 12/25/2011 take 1 capsule (100 mg) by oral route 2 times per day as needed Lortab 7.5-500 mg oral tablet 03/06/2010 03/21/2010 take 1 tablet by oral route every 6 hours as needed for pain for 30 days using dilaudid Lasix 40 mg oral tablet 03/07/2010 01/21/2012 take 1 tablet by oral route daily as needed Zithromax Z-Ishan 250 mg oral tablet 06/01/2010 take 2 tablets (500 mg) by oral route once daily for 3 days amoxicillin 500 mg oral tablet 06/19/2010 take 1 tablet (500 mg) by oral route 3 times per day for 7 days Crestor 40 mg oral tablet 06/06/2010 11/13/2010 TAKE 1 TABLET BY MOUTH AT BEDTIME Avelox 400 mg oral tablet 06/19/2010 11/23/2010 take 1 tablet (400 mg) by oral route once daily amoxicillin 500 mg oral capsule 01/01/2011 take 1 capsule (500 mg) by oral route 3 times per day x 7days. Ambien 10 mg oral tablet 11/23/2010 take 1 tablet (10 mg) by oral route once daily at bedtime Tricor 145 mg oral tablet 10/03/2010 11/13/2010 take 1 tablet by oral route daily for 30 days Lipitor 80 mg oral tablet 11/27/2010 take 1 tablet (80 mg) by oral route once daily atenolol 50 mg oral tablet 04/23/2011 01/21/2012 take 1 tablet (50 mg) by oral route once daily SymlinPen 60 1,500 mcg/1.5 mL subcutaneous pen injector 2011 08/21/2011 inject 0.06 milliliter (60 mcg) by subcutaneous route before meals Silvadene 1 % topical cream 12/25/2011 apply a 1/16 inch (1.5 mm) thick layer to entire burn area by topical route 2 times per day Zithromax Z-Ishan 250 mg oral tablet 06/20/2012 take 2 tablets (500 mg) by oral route once daily for 1 day then 1 tablet (250 mg) by oral route once daily for 4 days Levaquin 500 mg oral tablet 04/14/2012 take 1 tablet (500 mg) by oral route once daily x 5 days Klor-Con M20 20 mEq oral tablet,ER particles/crystals 04/14/2012 11/10/2013 take 1 tablet by oral route 2 times a day Apidra 100 unit/mL subcutaneous solution 05/21/2012 10/30/2012 INJECT 20 UNITS SUBCUTANEOUS BEFORE MEALS deleted Lantus 100 unit/mL subcutaneous solution 05/21/2012 10/30/2012 INJECT 50 UNITS DIRECTED DAILYTests Blood sugars dailyICD9: 250.01 deleted dexamethasone 4 mg oral tablet 08/28/2012 09/30/2012 TAKE 1 TABLET BY MOUTH EVERY DAY Cymbalta 30 mg oral capsule,delayed release(DR/EC) 02/03/2013 11/10/2013 take 1 capsule by oral route daily gabapentin 300 mg oral capsule 04/28/2013 take 1 capsule (300 mg) by oral route 3 times per day promethazine 25 mg oral tablet 07/16/2013 TAKE ONE TABLET BY MOUTH EVERY SIX HOURS NEEDED FOR NAUSEA ondansetron HCl 4 mg oral tablet 07/29/2013 04/20/2015 TAKE 1-2 TABLETS BY MOUTH EVERY SIX HOURS NEEDED FOR NAUSEA AND VOMITING cyclobenzaprine 10 mg oral tablet 08/18/2013 04/20/2015 take 1 tablet by oral route 3 times a day as needed Lovaza 1 gram oral capsule 08/28/2013 04/20/2015 TAKE 4 CAPSULES BY MOUTH EVERY DAY Tessalon Perles 100 mg oral capsule 10/28/2013 05/13/2014 take 1 capsule ( 100 mg) by oral route 3 times per day prn Fioricet 50-300-40 mg oral capsule 11/10/2013 04/20/2015 take 1 capsule by oral route every 4 hours as needed Lantus 100 unit/mL subcutaneous solution 11/10/2013 05/13/2014 INJECT 125 UNITS TWICE DAILY Novolin R 100 unit/mL injection solution 11/10/2013 09/04/2015 inject 35 units at breakfast, 35 units at lunch, and 45 units at dinner. Refresh Tears 0.5 % ophthalmic drops 11/24/2015 as directed potassium chloride 10 mEq oral tablet extended release 12/09/2013 09/04/2015 TAKE 2 TABLETS BY MOUTH TWICE DAILY dose change trazodone 150 mg oral tablet 03/29/2014 04/20/2015 TAKE 1 TABLET BY MOUTH AT BEDTIME NEEDED FOR INSOMNIA omega-3 acid ethyl esters 1 gram oral capsule 03/29/2014 05/13/2014 TAKE 4 CAPSULES BY MOUTH EVERY DAY levofloxacin 500 mg oral tablet 04/19/2014 05/13/2014 TAKE 1 TABLET BY MOUTH DAILY FOR 7 DAYS topiramate 100 mg oral tablet 04/22/2014 12/24/2014 TAKE 1 TABLET BY MOUTH TWICE DAILY Anoro Ellipta 62.5-25 mcg/actuation inhalation blister with device 05/13/2014 04/20/2015 inhale 1 puff by inhalation route once daily at the same time each day Levaquin 500 mg oral tablet 06/28/2014 10/12/2014 take 1 tablet (500 mg) by oral route once daily promethazine 25 mg oral tablet 09/14/2014 TAKE 1 TABLET BY MOUTH EVERY SIX HOURS NEEDED FOR NAUSEA Chantix 1 mg oral tablet 09/16/2014 04/20/2015 TAKE 1 TABLET BY MOUTH TWICE DAILY Compazine 10 mg oral tablet 01/06/2015 11/24/2015 take 1 tablet by oral route 3 times a day as needed Breo Ellipta 200-25 mcg/dose inhalation blister with device 03/08/20152015 take 1 puff by inhalation route daily promethazine 25 mg oral tablet 03/24/2015 09/04/2015 TAKE 1 TABLET BY MOUTH EVERY SIX HOURS NEEDED FOR NAUSEA Tessalon Perles 100 mg oral capsule 03/29/2015 04/20/2015 take 1 capsule (100 mg) by oral route every 4 hours as needed albuterol sulfate 1.25 mg/3 mL inhalation solution for nebulization 04/11/2015 07/26/2016 inhale 6 milliliters (2.5 mg) via nebulizer by inhalation route 3- 4 times daily Humulin R 100 unit/mL injection solution 09/04/2015 inject by subcutaneous route 30 units in the morning, 10 units at noon et 25 units in the evening changed by Dr. Higgins promethazine-codeine 6.25-10 mg/5 mL oral syrup 06/15/2015 09/04/2015 take 5 milliliters by oral route every 4 hours as needed, not to exceed 30 mL in 24 hours Topamax 100 mg oral tablet 08/24/2015 09/04/2015 take 1 tablet (100 mg) by oral route 2 times per day for [address] Hardin topiramate 50 mg oral tablet 08/29/2015 09/04/2015 TAKE 1 TABLET BY MOUTH TWICE DAILY ERGOCALCIFEROL 62601 UNIT CAPS 09/07/2015 06/14/2016 Take 1 capsule by mouth once weekly for 8 weeks. Topamax 100 mg oral tablet 11/02/2015 take 1 tablet (100 mg) by oral route 2 times per day Humulin R 100 unit/mL injection solution 06/26/2016 inject by subcutaneous route per prescriber's instructions. Insulin dosing requires individualization. promethazine 25 mg oral tablet 11/28/2015 TAKE 1 TABLET BY MOUTH EVERY SIX HOURS NEEDED FOR NAUSEA Pancreaze 4,200-10,000- 17,500 unit oral capsule,delayed release(DR/EC) 201507/09/2017 TAKE ONE CAPSULE BY MOUTH THREE TIMES DAILY BEFORE MEALS promethazine 25 mg oral tablet 06/13/2016 07/09/2017 TAKE 1 TABLET BY MOUTH EVERY SIX HOURS NEEDED FOR NAUSEA magnesium oxide 400 mg oral tablet 07/02/2016 take 1 tablet by oral route daily for 30 days magnesium oxide 400 mg oral tablet 07/25/2016 07/09/2017 take 1 tablet by oral route daily for 30 days Lyrica 75 mg oral capsule 07/25/2016 10/30/2016 TAKE 1 CAPSULE BY MOUTH TWICE DAILY Levaquin 500 mg oral tablet 11/28/2016 take 1 tablet (500 mg) by oral route once daily for 7 days prednisone 10 mg oral tablets,dose pack 11/28/2016 take as directed Dexilant 60 mg oral capsule,biphase delayed releas 09/04/2016 take 1 capsule (60 mg) by oral route once daily for 30 days K-Tab 10 mEq oral tablet extended release 09/13/2016 07/09/2017 3 tabs PO BID atorvastatin 40 mg oral tablet 09/24/2016 07/09/2017 TAKE 1 TABLET BY MOUTH ONCE EVERY DAY alprazolam 1 mg oral tablet 09/28/2016 11/28/2016 TAKE 1 TABLET BY MOUTH EVERY 8 HOURS NEEDED FOR ANXIETY Zofran ODT 4 mg oral tablet,disintegrating 10/23/2016 10/23/2016 dissolve 1 tablet by oral route every 8 hours as needed Dexilant 60 mg oral capsule,biphase delayed releas 12/20/2016 07/09/2017 TAKE 1 CAPSULE BY MOUTH ONCE EVERY DAY Dilaudid 4 mg oral tablet 02/14/2017 02/28/2017 may take 1 tablet every 8hrs prn pain Dilantin 30 mg oral capsule 03/01/2017 Problem List Description Status Onset Chronic pancreatitis Active 11/23/2010 Diabetes Mellitus, Type II, Uncontrolled Active Chronic Obstructive Pulmonary Disease Active Diabetes mellitus with neuropathy Active CVA (cerebral infarction) Active Gastroesophageal Reflux Active Hypertension Active Hyperlipidemia, Mixed Active Insomnia Active Anxiety Active Atrial Fibrillation Active Seizures Active Pancreatitis Active Heart disease Active cervical arthrosis Active Vital Signs Date Time BP-Sys(mm[Hg] BP-Tanika(mm[Hg]) HR(bpm) RR(rpm) Temp WT HT HC BMI BSA BMI Percentile O2 Sat(%) 06/12/2018 10:33:00 AM 128 mmHg 82 mmHg 95 bpm 18 rpm 98.6 F 180 lbs 62 in 32.9221 kg/m 1.8899 m 96 % 04/17/2018 1:08:00 PM 124 mmHg 78 mmHg 89 bpm 18 rpm 98.2 F 184.5 lbs 62 in 33.75 kg/m2 1.91 m2 96 % 04/15/2018 12:34:00 PM 136 mmHg 80 mmHg 92 bpm 16 rpm 98.2 F 183 lbs 62 in 33.4708 kg/m 1.9056 m 92 % 03/19/2018 8:37:00 AM 128 mmHg 82 mmHg 96 bpm 18 rpm 97.8 F 178.125 lbs 62 in 32.58 kg/m2 1.88 m2 96 % 01/07/2018 10:34:00 AM 138 mmHg 74 mmHg 99 bpm 18 rpm 98.1 F 176.5 lbs 62 in 32.2819 kg/m 1.8714 m 95 % 12/17/2017 10:37:00 AM 126 mmHg 84 mmHg 98 bpm 18 rpm 98.1 F 173.25 lbs 62 in 31.69 kg/m2 1.85 m2 95 % 10/14/2017 11:09:00 AM 142 mmHg 80 mmHg 96 bpm 18 rpm 96.8 F 176 lbs 62 in 32.1905 kg/m 1.8688 m 96 % 08/06/2017 3:23:00 PM 120 mmHg 78 mmHg 97 bpm 16 rpm 97.4 F 166.375 lbs 62 in 30.43 kg/m2 1.82 m2 97 % 07/09/2017 11:37:00 AM 156 mmHg 84 mmHg 95 bpm 24 rpm 96.6 F 166 lbs 62 in 30.3615 kg/m 1.8149 m 95 % 06/11/2017 10:11:00 AM 112 mmHg 70 mmHg 82 bpm 20 rpm 96.9 F 169.25 lbs 62 in 30.96 kg/m2 1.83 m2 98 % 05/07/2017 10:30:00 AM 122 mmHg 78 mmHg 89 bpm 14 rpm 95.7 F 172.125 lbs 95 % 02/28/2017 3:27:00 PM 136 mmHg 74 mmHg 59 bpm 18 rpm 97.3 F 171.125 lbs 62 in 31.2989 kg/m 1.8427 m 96 % 02/15/2017 10:33:00 AM 130 mmHg 76 mmHg 89 bpm 14 rpm 96 F 175.25 lbs 62 in 32.05 kg/m2 1.86 m2 98 % 12/17/2016 10:48:00 AM 117 mmHg 79 mmHg 91 bpm 18 rpm 98 F 166.5 lbs 62 in 30.4529 kg/m 1.8176 m 94 % 11/15/2016 8:18:00 AM 126 mmHg 64 mmHg 88 bpm 18 rpm 97.2 F 168.25 lbs 62 in 30.77 kg/m2 1.83 m2 96 % 10/29/2016 2:21:00 PM 134 mmHg 84 mmHg 86 bpm 18 rpm 96.4 F 172 lbs 62 in 31.46 kg/m2 1.85 m2 94 % 10/16/2016 10:30:00 AM 112 mmHg 66 mmHg 88 bpm 18 rpm 98.2 F 169.25 lbs 62 in 30.96 kg/m2 1.8326 m 98 % 09/19/2016 11:38:00 AM 130 mmHg 82 mmHg 91 bpm 24 rpm 95.6 F 168 lbs 62 in 30.7273 kg/m 1.8258 m 98 % 08/28/2016 9:06:00 AM 144 mmHg 84 mmHg 89 bpm 20 rpm 97.8 F 169.5 lbs 62 in 31.00 kg/m2 1.83 m2 99 % 08/22/2016 2:20:00 PM 150 mmHg 82 mmHg 98 bpm 24 rpm 96.1 F 171 lbs 62 in 31.276 kg/m 1.842 m 97 % 08/14/2016 10:40:00 AM 120 mmHg 82 mmHg 94 bpm 18 rpm 98.1 F 164 lbs 62 in 30.00 kg/m2 1.80 m2 99 % 07/31/2016 10:59:00 AM 110 mmHg 80 mmHg 88 bpm 16 rpm 96.6 F 166 lbs 62 in 30.3615 kg/m 1.8149 m 99 % 07/02/2016 2:05:00 PM 122 mmHg 76 mmHg 82 bpm 18 rpm 97.8 F 166 lbs 62 in 30.36 kg/m2 1.81 m2 96 % 06/14/2016 10:21:00 AM 120 mmHg 82 mmHg 94 bpm 16 rpm 96.8 F 168 lbs 62 in 30.7273 kg/m 1.8258 m 98 % 05/01/2016 1:37:00 PM 116 mmHg 72 mmHg 89 bpm 18 rpm 97.6 F 159.5 lbs 62 in 29.17 kg/m2 1.78 m2 96 % 04/24/2016 9:27:00 AM 128 mmHg 74 mmHg 86 bpm 16 rpm 96.4 F 163 lbs 62 in 29.8128 kg/m 1.7984 m 99 % 02/20/2016 2:14:00 PM 140 mmHg 88 mmHg 86 bpm 16 rpm 97.1 F 160 lbs 62 in 29.26 kg/m2 1.78 m2 96 % 01/27/2016 10:45:00 AM 134 mmHg 82 mmHg 86 bpm 18 rpm 96.9 F 161 lbs 62 in 29.447 kg/m 1.7873 m 95 % 12/06/2015 9:12:00 AM 98 mmHg 62 mmHg 84 bpm 16 rpm 98.5 F 162 lbs 62 in 29.63 kg/m2 1.79 m2 97 % 11/17/2015 10:09:00 AM 122 mmHg 84 mmHg 90 bpm 20 rpm 98.4 F 165 lbs 62 in 30.1786 kg/m 1.8094 m 99 % 11/02/2015 11:09:00 AM 124 mmHg 82 mmHg 84 bpm 16 rpm 97.4 F 166 lbs 62 in 30.36 kg/m2 1.81 m2 98 % 09/08/2015 2:33:00 PM 130 mmHg 88 mmHg 86 bpm 16 rpm 96.6 F 168 lbs 62 in 30.7273 kg/m 1.8258 m 98 % 09/04/2015 1:53:00 PM 136 mmHg 70 mmHg 82 bpm 20 rpm 98.6 F 171 lbs 62 in 31.28 kg/m2 1.84 m2 97 % 08/24/2015 10:34:00 AM 118 mmHg 80 mmHg 78 bpm 18 rpm 98.3 F 168 lbs 62 in 30.7273 kg/m 1.8258 m 07/12/2015 2:04:00 PM 130 mmHg 86 mmHg 80 bpm 18 rpm 96.5 F 165 lbs 62 in 30.18 kg/m2 1.81 m2 96 % 06/15/2015 8:22:00 AM 122 mmHg 72 mmHg 88 bpm 18 rpm 97.2 F 167 lbs 62 in 30.5444 kg/m 1.8203 m 98 % 05/05/2015 9:45:00 AM 112 mmHg 80 mmHg 78 bpm 18 rpm 96.1 F 163 lbs 62 in 29.81 kg/m2 1.80 m2 04/26/2015 10:50:00 AM 120 mmHg 80 mmHg 86 bpm 16 rpm 97.5 F 62 in 95 % 04/20/2015 8:58:00 AM 118 mmHg 80 mmHg 88 bpm 18 rpm 97.8 F 164 lbs 62 in 30.00 kg/m2 1.80 m2 03/29/2015 1:41:00 PM 126 mmHg 82 mmHg 84 bpm 16 rpm 96.7 F 157 lbs 62 in 28.7154 kg/m 1.765 m 03/07/2015 2:36:00 PM 130 mmHg 78 mmHg 88 bpm 18 rpm 97.5 F 151.5 lbs 62 in 27.71 kg/m2 1.73 m2 96 % 01/06/2015 8:59:00 AM 132 mmHg 84 mmHg 88 bpm 18 rpm 96.2 F 158 lbs 62 in 28.8983 kg/m 1.7706 m 12/24/2014 11:41:00 AM 120 mmHg 72 mmHg 18 bpm 20 rpm 96.7 F 158 lbs 62 in 28.90 kg/m2 1.77 m2 10/12/2014 9:33:00 AM 132 mmHg 86 mmHg 88 bpm 18 rpm 97.4 F 161 lbs 62 in 29.447 kg/m 1.7873 m 08/26/2014 9:54:00 AM 134 mmHg 72 mmHg 88 bpm 18 rpm 99 F 167 lbs 62 in 30.54 kg/m2 1.82 m2 07/21/2014 10:07:00 AM 128 mmHg 72 mmHg 80 bpm 18 rpm 96.8 F 160.125 lbs 62 in 29.2869 kg/m 1.7825 m 95 % 06/28/2014 9:39:00 AM 124 mmHg 72 mmHg 88 bpm 18 rpm 97.4 F 156 lbs 62 in 28.53 kg/m2 1.76 m2 06/21/2014 11:02:00 AM 100 mmHg 76 mmHg 76 bpm 20 rpm 97 F 156 lbs 62 in 28.5325 kg/m 1.7594 m 97 % 06/02/2014 10:44:00 AM 112 mmHg 72 mmHg 80 bpm 18 rpm 97.8 F 156 lbs 62 in 28.53 kg/m2 1.76 m2 05/13/2014 9:35:00 AM 122 mmHg 80 mmHg 88 bpm 18 rpm 98 F 152 lbs 62 in 27.8009 kg/m 1.7367 m 03/12/2014 9:48:00 AM 124 mmHg 76 mmHg 82 bpm 18 rpm 98.1 F 148 lbs 62 in 27.07 kg/m2 1.71 m2 01/04/2014 9:46:00 AM 116 mmHg 74 mmHg 82 bpm 18 rpm 98.1 F 149 lbs 62 in 27.2522 kg/m 1.7194 m 11/10/2013 10:05:00 AM 108 mmHg 60 mmHg 83 bpm 18 rpm 96.2 F 147.4 lbs 62 in 26.96 kg/m2 1.71 m2 99 % 10/28/2013 9:34:00 AM 110 mmHg 80 mmHg 92 bpm 18 rpm 96.8 F 147 lbs 62 in 26.8864 kg/m 1.7079 m 08/18/2013 9:20:00 AM 124 mmHg 78 mmHg 85 bpm 18 rpm 96.9 F 144.125 lbs 62 in 26.36 kg/m2 1.69 m2 98 % 07/29/2013 9:06:00 AM 124 mmHg 64 mmHg 74 bpm 18 rpm 97.6 F 143.375 lbs 62 in 26.2234 kg/m 1.6867 m 98 % 04/28/2013 2:56:00 PM 116 mmHg 76 mmHg 85 bpm 16 rpm 96 F 147 lbs 62 in 26.89 kg/m2 1.71 m2 98 % 04/20/2013 10:41:00 AM 120 mmHg 80 mmHg 86 bpm 16 rpm 98.3 F 145 lbs 62 in 26.5206 kg/m 1.6962 m 94 % 03/19/2013 9:42:00 AM 110 mmHg 70 mmHg 76 bpm 16 rpm 97.8 F 137 lbs 62 in 25.06 kg/m2 1.65 m2 94 % 02/03/2013 2:30:00 PM 120 mmHg 76 mmHg 80 bpm 18 rpm 98.4 F 138 lbs 62 in 25.2403 kg/m 1.6548 m 10/14/2012 1:42:00 PM 114 mmHg 80 mmHg 78 bpm 18 rpm 98 F 152 lbs 62 in 27.80 kg/m2 1.74 m2 09/30/2012 1:33:00 PM 118 mmHg 74 mmHg 78 bpm 18 rpm 98 F 153 lbs 62 in 27.9838 kg/m 1.7424 m 08/28/2012 8:32:00 AM 98 mmHg 60 mmHg 78 bpm 18 rpm 98.2 F 140 lbs 62 in 25.61 kg/m2 1.67 m2 94 % 08/19/2012 3:35:00 PM 100 mmHg 72 mmHg 80 bpm 18 rpm 97.7 F 140 lbs 62 in 25.6061 kg/m 1.6667 m 08/13/2012 10:08:00 AM 80 mmHg 68 bpm 18 rpm 97.3 F 140 lbs 62 in 25.61 kg/m2 1.67 m2 07/17/2012 9:35:00 AM 108 mmHg 78 mmHg 70 bpm 18 rpm 97.2 F 143 lbs 62 in 26.1548 kg/m 1.6845 m 92 % 06/20/2012 8:41:00 AM 104 mmHg 70 mmHg 72 bpm 18 rpm 97.8 F 145 lbs 63 in 25.69 kg/m2 1.71 m2 05/21/2012 9:43:00 AM 102 mmHg 70 mmHg 80 bpm 20 rpm 97.6 F 148 lbs 63 in 26.2168 kg/m 1.7274 m 05/08/2012 9:01:00 AM 100 mmHg 62 mmHg 80 bpm 18 rpm 98 F 142 lbs 63 in 25.15 kg/m2 1.69 m2 04/14/2012 9:16:00 AM 110 mmHg 70 mmHg 80 bpm 18 rpm 97.6 F 144 lbs 63 in 25.5082 kg/m 1.7039 m 97 % 04/03/2012 1:49:00 PM 110 mmHg 64 mmHg 80 bpm 20 rpm 97.8 F 130 lbs 63 in 23.03 kg/m2 1.62 m2 95 % 02/28/2012 1:58:00 PM 110 mmHg 70 mmHg 78 bpm 18 rpm 98.2 F 132 lbs 63 in 23.3825 kg/m 1.6314 m 01/31/2012 2:09:00 PM 102 mmHg 60 mmHg 72 bpm 18 rpm 97.8 F 128 lbs 63 in 22.67 kg/m2 1.61 m2 01/24/2012 4:02:00 PM 108 mmHg 64 mmHg 72 bpm 18 rpm 97.8 F 127 lbs 63 in 22.4968 kg/m 1.6002 m 01/21/2012 2:36:00 PM 88 mmHg 56 mmHg 60 bpm 16 rpm 97.8 F 127 lbs 63 in 22.50 kg/m2 1.60 m2 01/14/2012 1:30:00 PM 82 mmHg 60 mmHg 58 bpm 16 rpm 98 F 123 lbs 63 in 21.7882 kg/m 1.5748 m 01/11/2012 10:33:00 AM 90 mmHg 60 mmHg 69 bpm 18 rpm 97.3 F 126.125 lbs 63 in 22.34 kg/m2 1.59 m2 99 % 01/02/2012 9:02:00 AM 100 mmHg 68 mmHg 68 bpm 18 rpm 98.4 F 126 lbs 62 in 23.0455 kg/m 1.5812 m 12/25/2011 9:59:00 AM 100 mmHg 60 mmHg 65 bpm 18 rpm 97.1 F 131 lbs 62 in 23.96 kg/m2 1.61 m2 99 % 11/30/2011 8:56:00 AM 98 mmHg 62 mmHg 68 bpm 16 rpm 98.1 F 133 lbs 62.5 in 23.9381 kg/m 1.631 m 11/01/2011 10:45:00 AM 120 mmHg 62 mmHg 60 bpm 18 rpm 98 F 139 lbs 62.5 in 25.02 kg/m2 1.67 m2 09/05/2011 10:10:00 AM 94 mmHg 62 mmHg 78 bpm 20 rpm 98.8 F 140 lbs 62.5 in 25.198 kg/m 1.6734 m 04/23/2011 1:47:00 PM 86 mmHg 58 mmHg 80 bpm 20 rpm 96.6 F 147 lbs 62.5 in 26.46 kg/m2 1.71 m2 04/09/2011 10:33:00 AM 102 mmHg 68 mmHg 84 bpm 20 rpm 98.2 F 170 lbs 03/15/2011 10:51:00 AM 104 mmHg 74 mmHg 80 bpm 97.4 F 148 lbs 01/01/2011 9:29:00 AM 107 mmHg 74 mmHg 77 bpm 98 F 149 lbs 62 in 27.2522 kg/m 1.7194 m 12/22/2010 9:03:00 AM 100 mmHg 62 mmHg 60 bpm 20 rpm 97.7 F 145 lbs 11/23/2010 1:42:00 PM 100 mmHg 64 mmHg 78 bpm 18 rpm 98.1 F 147 lbs 10/06/2010 3:21:00 PM 100 mmHg 70 mmHg 73 bpm 95.1 F 147 lbs 98 % 08/07/2010 1:50:00 PM 98 mmHg 68 mmHg 72 bpm 97.6 F 151 lbs 96 % 06/19/2010 1:35:00 PM 100 mmHg 62 mmHg 72 bpm 20 rpm 98.4 F 150 lbs 06/01/2010 1:45:00 PM 118 mmHg 80 mmHg 72 bpm 20 rpm 97 F 149 lbs 05/04/2010 1:34:00 PM 112 mmHg 80 mmHg 78 bpm 20 rpm 97.7 F 148 lbs 04/07/2010 10:11:00 AM 108 mmHg 80 mmHg 80 bpm 20 rpm 96.7 F 153 lbs 03/21/2010 8:37:00 AM 108 mmHg 60 mmHg 72 bpm 16 rpm 97.6 F 151.375 lbs 03/07/2010 10:01:00 AM 104 mmHg 76 mmHg 80 bpm 20 rpm 98.1 F 155 lbs 02/15/2010 9:43:00 AM 108 mmHg 64 mmHg 74 bpm 16 rpm 97.6 F 152.25 lbs 02/06/2010 10:38:00 AM 110 mmHg 75 mmHg 78 bpm 18 rpm 97.9 F 151 lbs 02/02/2010 8:57:00 AM 110 mmHg 62 mmHg 68 bpm 16 rpm 97.4 F 156.125 lbs 01/17/2010 11:05:00 AM 102 mmHg 60 mmHg 78 bpm 97 F 154 lbs 12/27/2009 8:26:00 AM 112 mmHg 78 mmHg 80 bpm 18 rpm 97.4 F 152.25 lbs 08/10/2009 8:40:00 AM 122 mmHg 64 mmHg 78 bpm 96.8 F 146 lbs 06/22/2009 10:14:00 AM 122 mmHg 88 mmHg 80 bpm 20 rpm 98.4 F 148 lbs 63 in 26.2168 kg/m 1.7274 m Social History Name Description Comments Disabled recieving Social Security Disability Has never used alcohol Denies illicit substance abuse lives alone in a house Completed some high school Did not graduate from High School Tobacco Current every day smoker History of Procedures Date Ordered Description Order Status 05/05/2015 12:00 AM MRI BRAIN STEM W/O DYE Reviewed 04/09/2011 12:00 AM COMPLETE CBC W/AUTO DIFF WBC Reviewed 04/09/2011 12:00 AM COMPREHEN METABOLIC PANEL Reviewed 06/15/2015 12:00 AM COMPREHEN METABOLIC PANEL Reviewed 06/15/2015 12:00 AM Rocephin 1 gram [facility]#[id number] Reviewed 09/04/2015 4:29 PM URINALYSIS AUTO W/O SCOPE Reviewed 09/08/2015 12:00 AM X-RAY EXAM OF KNEE 1 OR 2 Reviewed 12/27/2015 12:00 AM X-RAY EXAM OF SHOULDER Reviewed 01/27/2016 12:00 AM COMPLETE CBC W/AUTO DIFF WBC Reviewed 01/27/2016 12:00 AM COMPREHEN METABOLIC PANEL Reviewed 01/27/2016 12:00 AM ASSAY OF LIPASE Reviewed 09/05/2011 12:00 AM COMPLETE CBC W/AUTO DIFF WBC Reviewed 09/05/2011 12:00 AM COMPREHEN METABOLIC PANEL Reviewed 09/05/2011 12:00 AM GLYCOSYLATED HEMOGLOBIN TEST Reviewed 06/28/2016 12:00 AM THER/PROPH/DIAG INJ SC/IM Reviewed 06/28/2016 12:00 AM Toradol 30 Mg Injection Reviewed 07/02/2016 12:00 AM Toradol 30 Mg Injection, [facility] Medicare Reviewed 07/02/2016 12:00 AM Phenergan 25mg Injection, [facility] Medicare Reviewed 07/18/2016 12:00 AM MRI NECK SPINE W/O DYE Reviewed 08/14/2016 12:00 AM MAMMOGRAM BOTH BREASTS Reviewed 11/30/2011 12:00 AM COMPLETE CBC W/AUTO DIFF WBC Reviewed 11/30/2011 12:00 AM COMPREHEN METABOLIC PANEL Reviewed 11/30/2011 12:00 AM GLYCOSYLATED HEMOGLOBIN TEST Reviewed 11/30/2011 12:00 AM ASSAY THYROID STIM HORMONE Reviewed 11/30/2011 12:00 AM VITAMIN B-12 Reviewed 08/28/2016 12:00 AM Rocephin 1 gram Injection Reviewed 08/28/2016 12:00 AM Decadron 8mg Injection Reviewed 08/28/2016 12:00 AM Depo-Medrol 80mg Injection Reviewed 10/16/2016 10:40 AM URINALYSIS AUTO W/O SCOPE Reviewed 10/16/2016 12:00 AM COMPLETE CBC W/AUTO DIFF WBC Reviewed 10/16/2016 12:00 AM COMPREHEN METABOLIC PANEL Reviewed 10/16/2016 12:00 AM GLYCOSYLATED HEMOGLOBIN TEST Reviewed 10/29/2016 12:00 AM Rocephin 1 gram Injection Reviewed 01/11/2012 12:00 AM Depo-Medrol 80 Mg ~ Dr Lay Reviewed 01/14/2012 12:00 AM CHEST X-RAY 2VW FRONTAL&LATL Reviewed 11/15/2016 12:00 AM Phenergan 50mg Injection Reviewed 12/17/2016 12:00 AM COMPLETE CBC W/AUTO DIFF WBC Reviewed 12/17/2016 12:00 AM COMPREHEN METABOLIC PANEL Reviewed 12/17/2016 12:00 AM ASSAY OF LIPASE Reviewed 12/17/2016 12:00 AM X-RAY EXAM OF WRIST Reviewed 01/17/2017 12:00 AM COMPLETE CBC W/AUTO DIFF WBC Returned 01/17/2017 12:00 AM COMPREHEN METABOLIC PANEL Returned 02/15/2017 12:00 AM COMPLETE CBC W/AUTO DIFF WBC Returned 02/15/2017 12:00 AM COMPREHEN METABOLIC PANEL Returned 02/15/2017 12:00 AM ASSAY THYROID STIM HORMONE Returned 02/15/2017 12:00 AM CHEST X-RAY 2VW FRONTAL&LATL Returned 02/28/2017 12:00 AM ASSAY OF PHENYTOIN TOTAL Returned 02/28/2017 12:00 AM METABOLIC PANEL TOTAL CA Returned 02/28/2017 12:00 AM COMPLETE CBC W/AUTO DIFF WBC Returned 04/03/2012 12:00 AM CHEST X-RAY 2VW FRONTAL&LATL Reviewed 04/11/2012 12:00 AM COMPLETE CBC W/AUTO DIFF WBC Reviewed 04/11/2012 12:00 AM COMPREHEN METABOLIC PANEL Reviewed 04/11/2012 12:00 AM LIPID PANEL Reviewed 04/11/2012 12:00 AM GLYCOSYLATED HEMOGLOBIN TEST Reviewed 05/07/2017 12:00 AM COMPLETE CBC W/AUTO DIFF WBC Returned 05/07/2017 12:00 AM COMPREHEN METABOLIC PANEL Returned 05/07/2017 12:00 AM ASSAY DIPROPYLACETIC ACD TOT Returned 06/11/2017 12:00 AM Rocephin 1 gram Injection Reviewed 06/24/2017 12:00 AM COMPLETE CBC W/AUTO DIFF WBC Returned 06/24/2017 12:00 AM COMPREHEN METABOLIC PANEL Returned 06/24/2017 12:00 AM RADIOLOGIC EXAM CHEST 2 VIEWS FRONTAL&LATERAL Returned 06/24/2017 12:00 AM C-REACTIVE PROTEIN Returned 08/06/2017 12:00 AM X-RAY EXAM SERIES ABDOMEN Returned 07/17/2012 12:00 AM COMPLETE CBC W/AUTO DIFF WBC Reviewed 07/17/2012 12:00 AM COMPREHEN METABOLIC PANEL Reviewed 07/17/2012 12:00 AM GLYCOSYLATED HEMOGLOBIN TEST Reviewed 08/28/2012 12:00 AM CHEST X-RAY 2VW FRONTAL&LATL Reviewed 08/28/2012 12:00 AM COMPLETE CBC W/AUTO DIFF WBC Reviewed 08/28/2012 12:00 AM COMPREHEN METABOLIC PANEL Reviewed 10/14/2017 12:00 AM CHEST X-RAY 2VW FRONTAL&LATL Returned 12/17/2017 12:00 AM X-RAY EXAM OF SHOULDER Returned 12/17/2017 12:00 AM X-RAY EXAM OF WRIST Returned 12/17/2017 12:00 AM X-RAY EXAM OF FINGER(S) Returned 07/14/2013 12:00 AM [employer] DELIVERY DEVICE Reviewed 07/29/2013 12:00 AM COMPLETE CBC W/AUTO DIFF WBC Reviewed 07/29/2013 12:00 AM URINALYSIS AUTO W/O SCOPE Reviewed 10/26/2013 12:00 AM CHEST X-RAY 2VW FRONTAL&LATL Reviewed 10/28/2013 12:00 AM ELECTROCARDIOGRAM COMPLETE Reviewed 10/28/2013 12:00 AM COMPLETE CBC W/AUTO DIFF WBC Reviewed 10/28/2013 12:00 AM COMPREHEN METABOLIC PANEL Reviewed 10/28/2013 12:00 AM GLYCOSYLATED HEMOGLOBIN TEST Reviewed 10/28/2013 12:00 AM ASSAY THYROID STIM HORMONE Reviewed 10/28/2013 12:00 AM CHEST X-RAY 2VW FRONTAL&LATL Reviewed 10/28/2013 12:00 AM ECG MONIT/REPRT UP TO 48 HRS Reviewed 08/07/2010 12:00 AM X-RAY EXAM OF HAND Reviewed 04/20/2014 12:00 AM RADIOLOGIC EXAM CHEST 2 VIEWS FRONTAL&LATERAL Reviewed 10/06/2010 12:00 AM X-RAY EXAM SACRUM TAILBONE Reviewed 11/23/2010 12:00 AM METABOLIC PANEL TOTAL CA Reviewed 11/23/2010 12:00 AM COMPLETE CBC W/AUTO DIFF WBC Reviewed 11/23/2010 12:00 AM GLYCOSYLATED HEMOGLOBIN TEST Reviewed 12/22/2010 12:00 AM COMPLETE CBC W/AUTO DIFF WBC Reviewed 12/22/2010 12:00 AM COMPREHEN METABOLIC PANEL Reviewed 12/22/2010 12:00 AM ASSAY THYROID STIM HORMONE Reviewed 12/22/2010 12:00 AM VITAMIN B-12 Reviewed 12/22/2010 12:00 AM ASSAY OF NATRIURETIC PEPTIDE Reviewed 01/01/2011 12:00 AM URINALYSIS NONAUTO W/SCOPE Reviewed 03/01/2015 12:00 AM FLUOROSCOPE EXAMINATION Reviewed Results Summary Date and Description Results 11/23/2010 2:28 PM GLUCOSE 403.0 mg/dLDATE/TIME CALLED: 11/23 1518 READ BACK BY : KINDRA Parmar SODIUM 133.0 mmol/LPOTASSIUM 4.20 mmol/LCHLORIDE 102.0 mmol/LCO2 19.0 mmol/LBUN 10.0 mg/dLCREATININE 0.80 mg/dLCALCIUM 9.50 mg/dLAGE 50 GFR NonAA 76 GFR AA 92 eGFR >60 mL/min/1.73 m2eGFR AA* >60 WBC 10.0 RBC 5.50 HGB 14.90 g/ dLHCT 44.70 %MCV 81.0 fLMCH 27.10 pgMCHC 33.30 g/dLRDW SD 44 RDW CV 15.0 %MPV 10.40 fLPLT 246 NRBC# 0.00 NRBC% 0.0 %NEUT 59.70 %%LYMP 32.40 %%MONO 6.0 %%EOS 1.50 %%BASO 0.40 %#NEUT 6.00 #LYMP 3.25 #MONO 0.60 #EOS 0.15 #BASO 0.04 MANUAL DIFF NOT IND 12/22/2010 9:52 AM BNP 21.0 pg/mLTSH 1.020 uIU/mLVITAMIN B12 684.0 pg/mLWBC 7.3 RBC 5.37 HGB 15.30 g/dLHCT 44.40 %MCV 83.0 fLMCH 28.50 pgMCHC 34.50 g/dLRDW SD 45 RDW CV 14.80 %MPV 10.70 fLPLT 270 NRBC# 0.00 NRBC% 0.0 %NEUT 64.0 %%LYMP 28.50 %%MONO 5.40 %%EOS 1.50 %%BASO 0.60 %#NEUT 4.66 #LYMP 2.07 #MONO 0.39 #EOS 0.11 #BASO 0.04 MANUAL DIFF NOT IND GLUCOSE 522.0 mg/dLDATE/TIME CALLED: 05/1100 READ BACK BY: KINDRA MARES/MITCHEL SODIUM 130.0 mmol/LPOTASSIUM 3.90 mmol/ LCHLORIDE 94.0 mmol/LCO2 22.0 mmol/LBUN 15.0 mg/dLCREATININE 0.90 mg/dLSGOT/AST 35.0 IU/LSGPT/ALT 37.0 IU/LALK PHOS 144.0 IU/LTOTAL PROTEIN 7.80 g/dLALBUMIN 4.20 g/dLTOTAL BILI 0.20 mg/dLCALCIUM 9.90 mg/dLAGE 50 GFR NonAA 66 GFR AA 80 eGFR >60 mL/min/1.73 m2eGFR AA* >60 01/01/2011 10:30 AM COLOR YELLOW APPEARANCE CLEAR SPEC GRAV 1.015 pH 6.0 PROTEIN NEGATIVE GLUCOSE 500 KETONE NEGATIVE BILIRUBIN NEGATIVE BLOOD MODERATE NITRITE NEGATIVE LEUK SCREEN TRACE WBC/HPF NEGATIVE RBC/HPF 0-5 CASTS/LPF NEGATIVE CRYSTALS NEGATIVE MUCOUS THRDS NEGATIVE BACTERIA NEGATIVE EPITH CELLS NEGATIVE TRICHOMONAS NEGATIVE YEAST NEGATIVE CULT SET UP? NO 04/09/2011 11:48 AM WBC 7.1 RBC 5.22 HGB 16.30 g/dLHCT 45.80 %MCV 88.0 fLMCH 31.20 pgMCHC 35.60 g/dLRDW SD 42 RDW CV 13.30 %MPV 10.80 fLPLT 220 NRBC# 0.00 NRBC% 0.0 %NEUT 62.20 %%LYMP 29.50 %%MONO 6.50 %%EOS 1.40 %%BASO 0.40 %#NEUT 4.41 #LYMP 2.09 #MONO 0.46 #EOS 0.10 #BASO 0.03 MANUAL DIFF NOT IND GLUCOSE 737.0 mg/dLDATE/TIME CALLED: 04/09 1337 READ BACK BY: JULIANNE BOBBY SODIUM 127.0 mmol/LPOTASSIUM 4.10 mmol/LCHLORIDE 91.0 mmol/LCO2 22.0 mmol/LBUN 12.0 mg/ dLCREATININE 1.10 mg/dLSGOT/AST 60.0 IU/LSGPT/ALT 47.0 IU/LALK PHOS 162.0 IU/ LTOTAL PROTEIN 8.50 g/dLALBUMIN 4.0 g/dLTOTAL BILI 0.30 mg/dLCALCIUM 9.30 mg/ dLAGE 50 GFR NonAA 53 GFR AA 64 eGFR 53 eGFR AA* >60 09/06/2011 1:15 PM WBC 12.3 RBC 5.18 HGB 15.60 g/dLHCT 45.10 %MCV 87.0 fLMCH 30.10 pgMCHC 34.60 g/dLRDW SD 41 RDW CV 12.80 %MPV 10.60 fLPLT 268 NRBC# 0.00 NRBC% 0.0 %NEUT 69.20 %%LYMP 24.40 %%MONO 5.10 %%EOS 1.0 %%BASO 0.30 %#NEUT 8.54 #LYMP 3.01 #MONO 0.63 #EOS 0.12 #BASO 0.04 MANUAL DIFF NOT IND GLUCOSE 338.0 mg/dLSODIUM 134.0 mmol/LPOTASSIUM 3.90 mmol/LCHLORIDE 101.0 mmol/LCO2 21.0 mmol/LBUN 11.0 mg/dLCREATININE 0.90 mg/dLSGOT/AST 20.0 IU/LSGPT/ALT 16.0 IU /LALK PHOS 107.0 IU/LTOTAL PROTEIN 7.60 g/dLALBUMIN 4.40 g/dLTOTAL BILI 0.30 mg/ dLCALCIUM 9.50 mg/dLAGE 51 GFR NonAA 66 GFR AA 80 eGFR >60 mL/min/1.73 m2eGFR AA * >60 11/30/2011 9:35 AM GLUCOSE 204.0 mg/dLSODIUM 137.0 mmol/LPOTASSIUM 3.90 mmol/ LCHLORIDE 103.0 mmol/LCO2 23.0 mmol/LBUN 8.0 mg/dLCREATININE 0.90 mg/dLSGOT/AST 22.0 IU/LSGPT/ALT 12.0 IU/LALK PHOS 84.0 IU/LTOTAL PROTEIN 7.70 g/dLALBUMIN 4.60 g/dLTOTAL BILI 0.40 mg/dLCALCIUM 9.60 mg/dLAGE 51 GFR NonAA 66 GFR AA 80 eGFR 60 eGFR AA* 60 WBC 7.8 RBC 4.79 HGB 14.40 g/dLHCT 42.20 %MCV 88.0 fLMCH 30.10 pgMCHC 34.10 g/dLRDW SD 43 RDW CV 13.40 %MPV 10.40 fLPLT 262 NRBC# 0.00 NRBC% 0.0 %NEUT 59.0 %%LYMP 34.20 %%MONO 5.0 %%EOS 1.40 %%BASO 0.40 %#NEUT 4.62 #LYMP 2.68 #MONO 0.39 #EOS 0.11 #BASO 0.03 MANUAL DIFF NOT IND VITAMIN B12 434.0 pg/mLFREE T4 1.31 TSH 2.280 uIU/mLGLYCOHEMOGLOBIN A1C 8.0 % 04/11/2012 9:33 AM WBC 16.7 RBC 4.52 HGB 13.40 g/dLHCT 40.30 %MCV 89.0 fLMCH 29.60 pgMCHC 33.30 g/dLRDW SD 45 RDW CV 13.80 %MPV 9.70 fLPLT 335 NRBC# 0.00 NRBC% 0.0 %NEUT 66.30 %%LYMP 27.60 %%MONO 5.0 %%EOS 0.80 %%BASO 0.30 %#NEUT 11.06 #LYMP 4.61 #MONO 0.83 #EOS 0.13 #BASO 0.05 MANUAL DIFF SEE BELOW SEGS 60 BANDS 2 LYMPHS 32 MONOS 4 GLUCOSE 69.0 mg/dLSODIUM 142.0 mmol/LPOTASSIUM 3.60 mmol/LCHLORIDE 107.0 mmol/LCO2 25.0 mmol/LBUN 20.0 mg/dLCREATININE 0.90 mg/ dLSGOT/AST 13.0 IU/LSGPT/ALT 9.0 IU/LALK PHOS 56.0 IU/LTOTAL PROTEIN 6.90 g/ dLALBUMIN 3.80 g/dLTOTAL BILI 0.20 mg/dLCALCIUM 10.20 mg/dLAGE 51 GFR NonAA 66 GFR AA 80 eGFR 60 eGFR AA* 60 TRIGLYCERIDES 223.0 mg/dLCHOLESTEROL 124.0 mg/ dLHDL 36.0 mg/dLTOT CHOL/HDL 3.4 LDL 61.0 mg/dLGLYCOHEMOGLOBIN A1C 6.10 % 07/17/2012 10:37 AM WBC 16.4 RBC 5.28 HGB 15.30 g/dLHCT 45.50 %MCV 86.0 fLMCH 29.0 pgMCHC 33.60 g/dLRDW SD 43 RDW CV 13.90 %MPV 10.10 fLPLT 368 NRBC# 0.00 NRBC% 0.0 %NEUT 72.90 %%LYMP 20.90 %%MONO 5.0 %%EOS 1.0 %%BASO 0.20 %#NEUT 11.93 #LYMP 3.43 #MONO 0.82 #EOS 0.17 #BASO 0.03 MANUAL DIFF NOT IND GLUCOSE 172.0 mg/dLSODIUM 138.0 mmol/LPOTASSIUM 3.40 mmol/LCHLORIDE 103.0 mmol/LCO2 24.0 mmol/LBUN 11.0 mg/dLCREATININE 1.0 mg/dLSGOT/AST 13.0 IU/LSGPT/ALT 6.0 IU/ LALK PHOS 54.0 IU/LTOTAL PROTEIN 7.10 g/dLALBUMIN 3.90 g/dLTOTAL BILI 0.30 mg/ dLCALCIUM 10.40 mg/dLAGE 51 GFR NonAA 58 GFR AA 70 eGFR 58 eGFR AA* 60 GLYCOHEMOGLOBIN A1C 7.90 % 08/28/2012 10:20 AM WBC 7.4 RBC 4.56 HGB 13.30 g/dLHCT 39.80 %MCV 87.0 fLMCH 29.20 pgMCHC 33.40 g/dLRDW SD 42 RDW CV 13.10 %MPV 10.10 fLPLT 267 NRBC# 0.00 NRBC% 0.0 %NEUT 49.90 %%LYMP 40.40 %%MONO 7.30 %%EOS 2.0 %%BASO 0.40 %#NEUT 3.67 #LYMP 2.98 #MONO 0.54 #EOS 0.15 #BASO 0.03 MANUAL DIFF NOT IND GLUCOSE 196.0 mg/dLSODIUM 140.0 mmol/LPOTASSIUM 3.30 mmol/LCHLORIDE 101.0 mmol/LCO2 27.0 mmol/LBUN 8.0 mg/dLCREATININE 1.0 mg/dLSGOT/AST 17.0 IU/LSGPT/ALT 10.0 IU/ LALK PHOS 47.0 IU/LTOTAL PROTEIN 7.0 g/dLALBUMIN 3.90 g/dLTOTAL BILI 0.30 mg/ dLCALCIUM 9.90 mg/dLAGE 52 GFR NonAA 58 GFR AA 70 eGFR 58 eGFR AA* 60 07/29/2013 10:24 AM WBC 10.8 RBC 4.93 HGB 14.40 g/dLHCT 42.0 %MCV 85.0 fLMCH 29.20 pgMCHC 34.30 g/dLRDW SD 41 RDW CV 13.20 %MPV 10.90 fLPLT 235 NRBC# 0.00 NRBC% 0.0 %NEUT 66.60 %%LYMP 26.70 %%MONO 4.20 %%EOS 2.30 %%BASO 0.20 %#NEUT 7.20 #LYMP 2.89 #MONO 0.45 #EOS 0.25 #BASO 0.02 MANUAL DIFF NOT IND 10/28/2013 10:18 AM WBC 7.4 RBC 5.23 HGB 15.0 g/dLHCT 44.20 %MCV 85.0 fLMCH 28.70 pgMCHC 33.90 g/dLRDW SD 41 RDW CV 13.30 %MPV 10.80 fLPLT 238 NRBC# 0.00 NRBC% 0.0 %NEUT 61.20 %%LYMP 30.20 %%MONO 6.40 %%EOS 1.80 %%BASO 0.40 %#NEUT 4.50 #LYMP 2.22 #MONO 0.47 #EOS 0.13 #BASO 0.03 MANUAL DIFF NOT IND HGB A1C 10.40 %Est Avg Glucose 251.8 mg/dLTSH 2.080 uIU/mLGLUCOSE 419.0 mg/dLSODIUM 133.0 mmol/LPOTASSIUM 3.50 mmol/LCHLORIDE 95.0 mmol/LCO2 26.0 mmol/LBUN 19.0 mg/ dLCREATININE 1.40 mg/dLSGOT/AST 14.0 IU/LSGPT/ALT 16.0 IU/LALK PHOS 92.0 IU/ LTOTAL PROTEIN 4.0 g/dLALBUMIN 3.90 g/dLTOTAL BILI 0.30 mg/dLCALCIUM 10.70 mg/ dLAGE 53 GFR NonAA 39 GFR AA 47 eGFR 39 eGFR AA* 47 03/16/2015 12:00 AM PQRS 14 Mammogram Performed Yes 09/04/2015 4:29 PM Clarity Ur cloudy Color Ur lt. yellow Glucose Ur-sCnc 100mg/ dL Bilirub Ur Ql Strip negative Ketones Ur Ql Strip negative Sp Gr Ur Qn <= 1.005 Hgb Ur Ql Strip negative pH Ur-LsCnc 5.0 Prot Ur Ql Strip negative Urobilinogen Ur-mCnc 0.2 Nitrite Ur Ql Strip negative WBC Est Ur Ql Strip small 10/18/2015 11:45 AM GLUCOSE 172.0 mg/dLSODIUM 134.0 mmol/LPOTASSIUM 3.60 mmol/ LCHLORIDE 102.0 mmol/LCO2 19.0 mmol/LBUN 14.0 mg/dLCREATININE 1.20 mg/dLSGOT/ AST 23.0 IU/LSGPT/ALT 18.0 IU/LALK PHOS 98.0 IU/LTOTAL PROTEIN 7.20 g/dLALBUMIN 4.0 g/dLTOTAL BILI 0.20 mg/dLCALCIUM 9.30 mg/dLAGE 55 GFR NonAA 47 GFR AA 57 eGFR 47 eGFR AA* 57 01/27/2016 11:35 AM WBC 7.9 RBC 5.49 HGB 15.90 g/dLHCT 47.20 %MCV 86.0 fLMCH 29.0 pgMCHC 33.70 g/dLRDW SD 43 RDW CV 13.60 %MPV 10.20 fLPLT 307 NRBC# 0.00 NRBC% 0.0 %NEUT 60.20 %%LYMP 31.60 %%MONO 5.30 %%EOS 1.60 %%BASO 1.0 %#NEUT 4.77 #LYMP 2.50 #MONO 0.42 #EOS 0.13 #BASO 0.08 MANUAL DIFF NOT IND GLUCOSE 178.0 mg/dLSODIUM 131.0 mmol/LPOTASSIUM 4.0 mmol/LCHLORIDE 97.0 mmol/LCO2 22.0 mmol/LBUN 17.0 mg/dLCREATININE 1.10 mg/dLSGOT/AST 21.0 IU/LSGPT/ALT 17.0 IU/ LALK PHOS 98.0 IU/LTOTAL PROTEIN 7.70 g/dLALBUMIN 4.10 g/dLTOTAL BILI 0.30 mg/ dLCALCIUM 9.80 mg/dLAGE 55 GFR NonAA 52 GFR AA 63 eGFR 52 eGFR AA* >60 LIPASE 32.0 U/L 10/16/2016 10:40 AM Color Ur Lt Yellow Glucose Ur-sCnc 250 Bilirub Ur Ql Strip Neg Ketones Ur Ql Strip Neg Sp Gr Ur Qn 1.010 Hgb Ur Ql Strip Neg pH Ur-LsCnc 7.0 Prot Ur Ql Strip Neg Urobilinogen Ur-mCnc 0.2 Nitrite Ur Ql Strip Neg WBC Est Ur Ql Strip Small 11/01/2016 9:45 AM WBC 8.6 RBC 5.25 HGB 14.20 g/dLHCT 44.80 %MCV 85.0 fLMCH 27.0 pgMCHC 31.70 g/dLRDW SD 49 RDW CV 16.0 %MPV 10.60 fLPLT 365 NRBC# 0.00 NRBC % 0.0 %NEUT 67.10 %%LYMP 24.50 %%MONO 4.90 %%EOS 2.20 %%BASO 0.80 %#NEUT 5.77 # LYMP 2.11 #MONO 0.42 #EOS 0.19 #BASO 0.07 MANUAL DIFF NOT IND HGB A1C 9.10 %Est Avg Glucose 214.5 mg/dLGLUCOSE 372.0 mg/dLSODIUM 131.0 mmol/LPOTASSIUM 4.10 mmol /LCHLORIDE 95.0 mmol/LCO2 23.0 mmol/LBUN 12.0 mg/dLCREATININE 1.10 mg/dLSGOT/ AST 16.0 IU/LSGPT/ALT 11.0 IU/LALK PHOS 126.0 IU/LTOTAL PROTEIN 7.10 g/ dLALBUMIN 3.60 g/dLTOTAL BILI 0.20 mg/dLCALCIUM 9.70 mg/dLAGE 56 GFR NonAA 51 GFR AA 62 eGFR 51 eGFR AA* >60 12/17/2016 11:38 AM WBC 7.6 RBC 5.57 HGB 14.60 g/dLHCT 46.0 %MCV 83.0 fLMCH 26.20 pgMCHC 31.70 g/dLRDW SD 47 RDW CV 15.90 %MPV 10.20 fLPLT 390 NRBC# 0.00 NRBC% 0.0 %NEUT 57.20 %%LYMP 33.60 %%MONO 6.70 %%EOS 1.40 %%BASO 0.70 %#NEUT 4.34 #LYMP 2.55 #MONO 0.51 #EOS 0.11 #BASO 0.05 MANUAL DIFF NOT IND GLUCOSE 187.0 mg/dLSODIUM 135.0 mmol/LPOTASSIUM 3.70 mmol/LCHLORIDE 100.0 mmol/LCO2 21.0 mmol/LBUN 12.0 mg/dLCREATININE 1.20 mg/dLSGOT/AST 19.0 IU/LSGPT/ALT 16.0 IU /LALK PHOS 99.0 IU/LTOTAL PROTEIN 7.90 g/dLALBUMIN 4.0 g/dLTOTAL BILI 0.20 mg/ dLCALCIUM 9.90 mg/dLAGE 56 GFR NonAA 46 GFR AA 56 eGFR 46 eGFR AA* 56 LIPASE 39.0 U/L History Of Immunizations Not available. History of Past Illness Name Date of Onset Comments Sialoadenitis Jun 22 2009 10:20AM Arthritis unspecified Gastroesophageal Reflux Heart disease Hypertension Hyperlipidemia, Mixed Kidney Calculus Aug 10 2009 8:42AM ADD Anxiety Abdominal Pain, Generalized hx adhesions Atrial Fibrillation Myocardial Infarction Palpitations Pancreatitis chronic Insomnia Chronic pancreatitis 11/23/2010 Chronic Obstructive Pulmonary Disease Diabetes Mellitus, Type II, Uncontrolled Hyperlipidemia, unspecified Dec 27 2009 8:32AM Pancreatic Disorder Dec 27 2009 8:32AM Diabetes Mellitus, Type II Jan 17 2010 11:07AM Abdominal Pain Jan 17 2010 11:07AM Chronic pancreatitis Feb 02 2010 8:58AM Abdominal Pain Feb 06 2010 10:45AM Depression and anxiety Feb 06 2010 10:45AM Chronic pancreatitis Feb 15 2010 9:51AM Abdominal Pain Mar 07 2010 10:11AM Depression and anxiety Mar 07 2010 10:11AM Chronic pancreatitis Mar 21 2010 8:43AM Abdominal Pain Apr 07 2010 10:15AM Chronic pancreatitis May 04 2010 1:36PM Diabetes Mellitus, Type II Jun 01 2010 1:47PM Upper Respiratory Infection Jun 01 2010 1:47PM Upper Respiratory Infection Jun 19 2010 1:40PM Chronic pancreatitis Jun 19 2010 1:40PM Pain in left hand Aug 07 2010 1:51PM Coccyx pain Oct 06 2010 3:36PM Coccyx pain Oct 06 2010 3:36PM CVA (cerebral infarction) cervical arthrosis Diabetes Mellitus, Type II, Uncontrolled Nov 23 2010 1:44PM Chronic pancreatitis Nov 23 2010 1:44PM Diabetes Mellitus, Type II, Uncontrolled Dec 22 2010 9:06AM Fatigue Dec 22 2010 9:06AM Edema Dec 22 2010 9:06AM Dysuria Jan 01 2011 9:28AM Postmenopausal Bleeding Jan 01 2011 9:28AM Postmenopausal Atrophic Vaginitis Jan 01 2011 9:28AM Diabetes mellitus with neuropathy Seizures Contact Dermatitis Mar 15 2011 10:54AM Pressure ulcer stage I Mar 15 2011 10:54AM opioid-induced constipation Petechial Rash Apr 09 2011 10:33AM Upper Respiratory Infection Apr 09 2011 10:33AM Diabetes Mellitus, Type II, Uncontrolled Apr 23 2011 1:51PM Abdominal Pain Apr 23 2011 1:51PM Diabetes Mellitus, Type II Sep 05 2011 10:15AM Chronic pancreatitis Sep 05 2011 10:15AM Arterial Disorder Sep 05 2011 10:15AM Abdominal Pain Sep 05 2011 10:15AM Hyperlipidemia, unspecified Nov 30 2011 9:00AM Diabetes Mellitus, Type II, Uncontrolled Nov 30 2011 9:00AM Fatigue Nov 30 2011 9:00AM Hypertension Nov 01 2011 10:49AM Diabetes Mellitus, Type II, Uncontrolled Nov 01 2011 10:49AM Abdominal Pain Nov 01 2011 10:49AM Abdominal Pain Dec 25 2011 10:07AM Costochondritis Jan 11 2012 11:50AM Costochondritis Jan 11 2012 10:38AM Diabetes Mellitus, Type II Jan 02 2012 9:07AM Diabetes Mellitus, Type II Jan 14 2012 1:38PM Chest Pain Jan 14 2012 1:38PM Hypertension Jan 14 2012 1:38PM Hypotension Jan 21 2012 2:50PM Hypokalemia Jan 21 2012 2:50PM Diabetes Mellitus, Type I Jan 24 2012 4:06PM Hypotension Jan 24 2012 4:06PM Diabetes Mellitus, Type II Jan 31 2012 2:13PM Chronic pain Jan 31 2012 2:13PM Diabetes Mellitus, Type II Feb 28 2012 2:02PM Chronic pancreatitis Feb 28 2012 2:02PM Bronchitis, Acute Apr 03 2012 1:49PM Muscle Spasm Apr 10 2012 1:18PM Diabetes Mellitus, Type II Apr 11 2012 9:16AM Hyperlipidemia Apr 11 2012 9:16AM Upper Respiratory Infection Apr 14 2012 9:19AM Upper Respiratory Infection May 08 2012 9:04AM Diabetes Mellitus, Type II May 21 2012 9:50AM Upper Respiratory Infection Jun 20 2012 8:44AM Diabetes Mellitus, Type II Jun 20 2012 8:44AM Osteoarthritis Jun 20 2012 8:44AM Chronic pancreatitis Jun 20 2012 8:44AM Diabetes Mellitus, Type II Jul 17 2012 9:38AM Otitis Media, Acute Jul 17 2012 9:38AM Diabetes Mellitus, Type II Aug 13 2012 10:12AM Hypotension Aug 13 2012 10:12AM Hypotension Aug 19 2012 3:38PM Diabetes Mellitus, Type II Aug 28 2012 8:34AM Chest Pain Aug 28 2012 8:34AM Diabetes Mellitus, Type II, Uncontrolled Sep 30 2012 1:36PM Edema Sep 30 2012 1:36PM Diabetes Mellitus, Type II Oct 14 2012 1:47PM Chronic Obstructive Pulmonary Disease Oct 14 2012 1:47PM Diabetes Mellitus, Type II, Uncontrolled Feb 03 2013 2:38PM Abdominal Pain Feb 03 2013 2:38PM Peripheral Neuropathy; bilateral feet Mar 19 2013 9:43AM Diabetes Mellitus, Type II, Uncontrolled Apr 20 2013 10:43AM Abdominal Pain Apr 20 2013 10:43AM Chronic Obstructive Pulmonary Disease Apr 20 2013 10:43AM Poor Venous Access Apr 28 2013 3:07PM Chronic pancreatitis Apr 28 2013 3:07PM Chronic pancreatitis Jul 14 2013 9:03AM Abdominal Pain Jul 29 2013 9:08AM Constipation Jul 29 2013 9:08AM Myalgia Aug 18 2013 9:25AM Cough Oct 26 2013 9:03AM Syncope Oct 28 2013 9:41AM Diabetes Mellitus, Type II, Uncontrolled Oct 28 2013 9:41AM Cough Oct 28 2013 9:41AM Headache Nov 10 2013 10:09AM Syncope Jan 04 2014 9:52AM Chronic pancreatitis Mar 12 2014 9:52AM Cough Apr 20 2014 1:18PM Upper Respiratory Infection May 13 2014 9:42AM Chronic pancreatitis May 13 2014 9:42AM Syncope Jun 02 2014 10:51AM Abnormal CT of brain Jun 02 2014 10:51AM Bronchitis, Acute Jun 28 2014 9:44AM Insomnia, unspecified Jun 28 2014 9:44AM Chronic pancreatitis Jun 28 2014 9:44AM Poor Venous Access Jun 21 2014 11:04AM Chronic pancreatitis Jun 21 2014 11:04AM Diabetes Mellitus, Type II, Uncontrolled Jun 21 2014 11:04AM Seizure Disorder Jul 21 2014 10:14AM Upper Respiratory Infection Aug 26 2014 10:00AM Chronic pancreatitis Aug 26 2014 10:00AM Chronic pancreatitis Oct 12 2014 9:37AM Hyperlipidemia, unspecified Dec 24 2014 9:55AM Diabetes Mellitus, Type II Dec 24 2014 9:55AM Bronchitis, Acute Dec 24 2014 9:55AM Chronic pancreatitis Dec 24 2014 9:55AM Otitis Media, Acute Jan 06 2015 9:07AM Migraine Jan 06 2015 9:07AM Chronic pancreatitis Jan 06 2015 9:07AM Hypertriglyceridemia Jan 06 2015 9:07AM Poor Venous Access Mar 01 2015 2:11PM Chronic pancreatitis Mar 01 2015 2:11PM [address]ac[address] in [address] Mar 01 2015 2:11PM Chronic Obstructive Pulmonary Disease Mar 07 2015 2:39PM Sinusitis Mar 29 2015 1:46PM Bronchitis, Acute Apr 20 2015 9:03AM Chronic Obstructive Pulmonary Disease Apr 20 2015 9:03AM Chronic pain Apr 20 2015 9:03AM Stuttering Apr 26 2015 10:52AM Facial droop Apr 26 2015 10:52AM Arm numbness Apr 26 2015 10:52AM CVA (cerebral vascular accident) May 05 2015 9:52AM Pneumonia Jun 15 2015 8:24AM Cyst near tailbone Jul 12 2015 2:13PM Headache Aug 24 2015 10:41AM Urinary Tract Infection Sep 04 2015 1:55PM Cystitis, Acute Sep 04 2015 1:55PM Knee pain, right Sep 08 2015 2:42PM Chronic pancreatitis Sep 08 2015 2:42PM Low Back Pain Nov 02 2015 11:17AM Otitis Media, Acute Nov 02 2015 11:17AM Esophageal Reflux Nov 02 2015 11:17AM Diabetes Mellitus, Type II Nov 17 2015 10:15AM Chronic pancreatitis Nov 17 2015 10:15AM Constipation due to opioid therapy Nov 17 2015 10:15AM Altered mental status Dec 06 2015 9:18AM Constipation due to opioid therapy Dec 06 2015 9:18AM Shoulder joint painful on movement, right Dec 27 2015 12:06PM Abdominal Pain Jan 27 2016 10:50AM Post-nasal drainage Feb 20 2016 2:21PM Eustachian tube dysfunction, right Feb 20 2016 2:21PM Abdominal Pain Feb 20 2016 2:21PM Familial hypercholesteremia Apr 24 2016 9:32AM Upper Respiratory Infection May 01 2016 1:40PM Esophageal Reflux Jun 14 2016 10:29AM Sinusitis Jun 14 2016 10:29AM Chronic pancreatitis Jun 14 2016 10:29AM Headache Jun 28 2016 1:25PM Occipital neuralgia Jul 02 2016 2:09PM Chronic pain Jul 02 2016 2:09PM Neck pain Jul 18 2016 1:08PM Chronic Obstructive Pulmonary Disease Jul 31 2016 11:06AM Hypertriglyceridemia Jul 31 2016 11:06AM Chronic pancreatitis Aug 14 2016 10:44AM Breast pain, left Aug 14 2016 10:44AM Sebaceous cyst Aug 14 2016 10:44AM Encounter for screening mammogram for breast cancer Aug 14 2016 4:20PM Subcutaneous mass Aug 22 2016 2:21PM Chronic obstructive pulmonary disease with acute exacerbation Aug 28 2016 9: 08AM Esophageal Reflux Aug 28 2016 9:08AM Postoperative Follow-up Sep 10 2016 3:07PM Postoperative Follow-up Sep 19 2016 11:39AM Insomnia, unspecified Oct 16 2016 10:32AM Low Back Pain Oct 16 2016 10:32AM Urinary Tract Infection Oct 16 2016 10:32AM Diabetes Mellitus, Type II Oct 16 2016 10:32AM Chronic obstructive pulmonary disease with acute exacerbation Oct 29 2016 2: 26PM Hypertension Oct 29 2016 2:26PM Diabetes Mellitus, Type II Oct 29 2016 2:26PM Chronic pancreatitis Nov 15 2016 8:19AM Abdominal Pain Dec 17 2016 10:52AM Arm pain, lateral, right Dec 17 2016 10:52AM Right Decreased pulses in feet Dec 17 2016 10:52AM Decreased pedal pulses Dec 20 2016 10:23AM Seizures Jan 17 2017 1:05PM Seizure Disorder Feb 15 2017 10:35AM Fatigue Feb 15 2017 10:35AM Swelling Feb 15 2017 10:35AM Dyspnea Feb 15 2017 10:35AM Seizure Disorder Feb 28 2017 3:30PM Hypokalemia Feb 28 2017 3:30PM Chronic Obstructive Pulmonary Disease May 07 2017 10:32AM Seizure Disorder May 07 2017 10:32AM Urinary Tract Infection Jun 11 2017 10:12AM Pneumonia Jun 11 2017 10:12AM Pneumonia Jun 24 2017 12:54PM Chest congestion Jun 24 2017 12:54PM Chronic Obstructive Pulmonary Disease Jul 09 2017 11:38AM Type 2 diabetes mellitus with diabetic neuropathy, unspecified Jul 09 2017 11: 38AM Epigastric pain Aug 06 2017 3:25PM Hoarseness Oct 14 2017 11:19AM Shoulder pain, right Oct 14 2017 11:19AM Chest pain Oct 14 2017 11:19AM Chronic pain Oct 14 2017 11:19AM Shoulder pain, right Dec 17 2017 10:38AM Wrist pain, right Dec 17 2017 10:38AM Hand pain, right Dec 17 2017 10:38AM Epigastric pain Jan 07 2018 10:37AM Ventral hernia Jan 07 2018 10:37AM FILOMENA (generalized anxiety disorder) Mar 19 2018 8:39AM Chronic pain Mar 19 2018 8:39AM Drug induced constipation Apr 17 2018 1:10PM Adverse effect of other opioids, initial encounter Apr 17 2018 1:10PM Skin tags, multiple acquired Apr 15 2018 12:34PM Seizure Disorder Jun 12 2018 10:37AM Shoulder pain, right Jun 12 2018 10:37AM Chest pain Jun 12 2018 10:37AM Myalgia Jun 12 2018 10:37AM Payers Insurance Name Company Name Plan Name Plan Number Policy Number Policy Group Number Start Date [facility] [id number] N/A [facility] [id number] N/A [place] [employer] [facility] Medical Assistance Prog [id number] Monday, 2009 [place] [employer] - [facility] [employer] - [facility] [id number] N/A [facility] [id number] July [facility] [id number] N/A History of Encounters Visit Date Visit Type Provider 06/12/2018 Office visit Viet Ji MD 04/17/2018 Office visit Viet Ji MD 04/15/2018 Procedures Olegario Lay MD 04/08/2018 Voided Olegario Lay MD 03/19/2018 Office visit Viet Ji MD 01/07/2018 Office visit Viet Ji MD 12/17/2017 Office visit Viet Ji MD 10/14/2017 Office visit Viet Ji MD 08/06/2017 Office visit Viet Ji MD 07/18/2017 Surgery Olegario Lay MD 07/09/2017 Procedures Olegario Lay MD 06/11/2017 Office visit Viet Ji MD 05/07/2017 Office visit Viet Ji MD 02/28/2017 Office visit Viet Ji MD 02/22/2017 Hospital Corby Carlin MD 02/16/2017 Hospital Corby Carlin MD 02/15/2017 Office visit Viet Ji MD 12/17/2016 Office visit Viet Ji MD 11/15/2016 Office visit Viet Ji MD 10/29/2016 Office visit Viet Ji MD 10/16/2016 Office visit Viet Ji MD 09/19/2016 Office visit Olegario Lay MD 09/10/2016 Office visit Olegario Lay MD 08/30/2016 Surgery Olegario Lay MD 08/28/2016 Office visit Viet Ji MD 08/22/2016 Office visit Olegario Lay MD 08/14/2016 Office visit Viet Ji MD 07/31/2016 Office visit Viet Ji MD 07/02/2016 Office visit Viet Ji MD 06/28/2016 Nurse visit Viet Ji MD 06/14/2016 Office visit Viet Ji MD 05/01/2016 Office visit Viet Ji MD 04/24/2016 Office visit Viet Ji MD 04/09/2016 Hospital Ismael Ward MD 04/08/2016 Hospital Corby Carlin MD 02/20/2016 Office visit Viet Ji MD 01/27/2016 Office visit Viet Ji MD 12/06/2015 Office visit Viet Ji MD 11/17/2015 Office visit Viet Ji MD 11/02/2015 Office visit Viet Ji MD 09/08/2015 Office visit Viet Ji MD 09/04/2015 Office visit Shahana Jon APRN 08/24/2015 Office visit Viet Ji MD 08/18/2015 Hospital Corby Carlin MD 07/12/2015 Office visit Viet Ji MD 06/15/2015 Office visit Viet Ji MD 05/05/2015 Office visit Viet Ji MD 04/26/2015 Office visit Viet Ji MD 04/22/2015 Hospital Corby Carlin MD 04/20/2015 Office visit Viet Ji MD 03/29/2015 Office visit Viet Ji MD 03/17/2015 Hospital Olegario Lay MD 03/07/2015 Office visit Viet Ji MD 03/01/2015 Office visit Olegario Lay MD 01/06/2015 Office visit Viet Ji MD 12/24/2014 Office visit Viet Ji MD 10/12/2014 Office visit Viet Ji MD 08/26/2014 Office visit Viet Ji MD 07/21/2014 Office visit Viet Ji MD 07/18/2014 Hospital Corby Carlin MD 07/09/2014 Hospital Olegario Lay MD 06/28/2014 Office visit Viet Ji MD 06/21/2014 Office visit Olegario Lay MD 06/02/2014 Office visit Viet Ji MD 05/13/2014 Office visit Viet Ji MD 03/12/2014 Office visit Viet Ji MD 01/15/2014 Hospital Corby Carlin MD 01/04/2014 Office visit Viet Ji MD 11/10/2013 Office visit Viet Ji MD 10/28/2013 Office visit Viet Ji MD 10/28/2013 Hospital Mauro Carlin MD 10/02/2013 [facility] Corby Carlin MD 08/18/2013 Office visit Viet Ji MD 07/29/2013 Office visit Sheron Marsh APRN 05/01/2013 Hospital Olegario Lay MD 04/28/2013 Office visit Olegario Lay MD 04/20/2013 Office visit Viet Ji MD 03/19/2013 Office visit Viet Ji MD 02/03/2013 Office visit Viet Ji MD 10/14/2012 Office visit Viet Ji MD 09/30/2012 Office visit Viet Ji MD 08/28/2012 Office visit Viet Ji MD 08/19/2012 Office visit Viet Ji MD 08/13/2012 Office visit Viet Ji MD 07/17/2012 Office visit Viet Ji MD 06/24/2012 Voided Viet Ji MD 06/20/2012 Office visit Viet Ji MD 05/21/2012 Office visit Viet Ji MD 05/08/2012 Office visit Viet Ji MD 04/14/2012 Office visit Viet Ji MD 04/13/2012 Hospital Corby Carlin MD 04/03/2012 Office visit Viet Ji MD 02/28/2012 Office visit Viet Ji MD 01/31/2012 Office visit Viet Ji MD 01/24/2012 Office visit Viet Ji MD 01/21/2012 Voided Viet Ji MD 01/21/2012 Voided Viet Ji MD 01/14/2012 Office visit Viet Ji MD 01/11/2012 Office visit Olegario Lay MD 01/02/2012 Office visit Viet Ji MD 12/25/2011 Office visit Olegario Lay MD 11/30/2011 Office visit Viet Ji MD 11/17/2011 Hospital Olegario Lay MD 11/16/2011 [facility] Olegario Lay MD 11/15/2011 Hospital Corby Carlin MD 11/01/2011 Office visit Viet Ji MD 09/05/2011 Office visit Viet Ji MD 04/23/2011 Office visit Viet Ji MD 04/15/2011 [facility] Olegario Lay MD 04/15/2011 [facility] Jenny Jenkins MD 04/14/2011 [facility] Olegario Lay MD 04/09/2011 Office visit Viet Ji MD 03/15/2011 Office visit Sheron Marsh APRN 01/01/2011 Office visit Star Gomez MD 12/22/2010 Office visit Viet Ji MD 11/23/2010 Office visit Viet Ji MD 10/06/2010 Office visit Niranjan Castro MD 08/07/2010 Office visit Viet Ji MD 07/07/2010 [facility] Homero Jarrett MD 07/06/2010 [facility] Homero Jarrett MD 07/05/2010 [facility] Corby Carlin MD 06/19/2010 Office visit Viet Ji MD 06/01/2010 Office visit Viet Ji MD 05/04/2010 Office visit Viet Ji MD 04/07/2010 Office visit Viet Ji MD 03/31/2010 [facility] Homero Jarrett MD 03/30/2010 [facility] Homero Jarrett MD 03/29/2010 Laboratory Homero Jarrett MD 03/29/2010 [facility] Homero Jarrett MD 03/28/2010 [facility] Homero Jarrett MD 03/26/2010 [facility] Homero Jarrett MD 03/25/2010 [facility] Homero Jarrett MD 03/21/2010 Office visit Ray Gutiérrez MD 03/07/2010 Office visit Viet Ji MD 02/28/2010 [facility] Homero Jarrett MD 02/27/2010 [facility] Homero Jarrett MD 02/26/2010 [facility] Niranjan Castro MD 02/25/2010 [facility] Niranjan Castro MD 02/24/2010 [facility] Homero Jarrett MD 02/23/2010 Laboratory Homero Jarrett MD 02/15/2010 Office visit Ray Gutiérrez MD 02/06/2010 Office visit Viet Ji MD 02/02/2010 Office visit Ray Gutiérrez MD 01/22/2010 [facility] Homero Jarrett MD 01/21/2010 [facility] Homero Jarrett MD 01/20/2010 [facility] Homero Jarrett MD 01/19/2010 [facility] Homero Jarrett MD 01/17/2010 Office visit Viet Ji MD 01/10/2010 [facility] Homero Jarrett MD 01/08/2010 [facility] Lillie Licea MD 12/27/2009 Office visit Viet Ji MD 08/10/2009 Office visit Viet Ji MD 06/22/2009 Office visit Viet Ji MD 03/30/2009 Laboratory Viet Ji MD
--- OUTSIDE RECORDS SUMMARY | 2018-07-24 21:22 | XMS REPORT ---
Demographics Address [address] [place] [address] Preferred Language Bulgarian Marital Status Temple Affiliation Unknown Race White Ethnic Group Not or Author Author Viet Ji [facility] Address [address] [place], [place] [id number] Care Team Providers Care Relocation Commissioner Name Role Phone Viet Ji PCP Viet [...] CBC With Auto Differential 08/19/2012 12:00 AM Abdominal radiographs, complete (including decubitus/erect views) 2013 12:00 AM Comprehensive metabolic panel 07/29/2013 12:00 AM Urine Culture, [place] Count 07/29/2013 12:00 AM diabetic check copd, [...] by oral route 2 times per day Tousina SoloStar 300 unit/mL (1.5 mL) subcutaneous insulin pen [...] TAKE 1 TABLET BY MOUTH AT BEDTIME Dilaudid 4 mg oral tablet 05/16/2018 take 1 tablet every 8hr as needed hydrocodone-acetaminophen 10-325 mg oral tablet 05/16/2018 06/15/2018 take 1 tablet by oral route every 6 hours as needed for pain for 30 days Name Start Date Expiration Date SIG Comments Augmentin 875-125 mg oral tablet 06/22/2009 07/06/2009 take 1 tablet by oral route every 12 hours for 14 days diazepam 5 mg oral tablet 08/03/2009 08/18/2009 TAKE 1 TABLET BY MOUTH EVERY 8 HOURS NEEDED [place] 10-325 mg oral tablet 10/31/2009 01/29/2010 take [...] 1 TABLET BY MOUTH FOUR TIMES DAILY Contour Test Strips Miscellaneous Strip 06/12/2012 03/09/2013 test BS tid et prnICD-9 250.01 clopidogrel 75 mg oral tablet 07/03/2012 08/02/2012 [...] MOUTH EVERY 6 HOURS NEEDED FOR PAIN Lancets,Thin 23 gauge miscellaneous misc 02/10/2013 03/12/2013 DIRECTED fenofibrate nanocrystallized 145 mg oral tablet 03/02/2013 [...] 04/12/2014 TAKE 1 TABLET BY MOUTH DAILY insulin syringe-needle U-100 1 mL 30 gauge x 5/16 miscellaneous syringe 201301/29/2014 USE DIRECTED [facility] CONTOUR TEST STRIPS 05/13/2014 08/21/2014 USE [...] 1 TABLET BY MOUTH ONCE EVERY DAY CONTOUR MITCHELL NEXT 05/20/2017 05/25/2017 DIRECTED Cipro 500 mg oral tablet 06/18/2017 06/25/2017 take 1 tablet (500 mg) by oral route every 12 hours for 7 days Compazine 10 mg oral tablet 06/25/2017 06/25/2017 take 1 tablet by oral route 4 times a day as needed BD Insulin Syringe Ultra-Fine 1/2 mL 30 gauge x 1/2" miscellaneous syringe 08/1508/15/2017 use with insulin 3 times daily metoclopramide HCl 10 mg oral tablet 08/15/2017 [...] TAKE 4 CAPSULES BY MOUTH EVERY DAY Ulticare Pen Needle 31 gauge x 1/4" miscellaneous needle 03/31/20142013 USE DIRECTED THREE TIMES DAILY levofloxacin 500 mg oral tablet 04/19/2014 05/13/2014 [...] 1 TABLET BY MOUTH TWICE DAILY ERGOCALCIFEROL 53794 UNIT CAPS 09/07/2015 06/14/2016 Take 1 capsule [...] NAUSEA Pancreaze 4,200-10,000- 17,500 unit oral capsule,delayed release(/EC) 201507/09/2017 TAKE ONE CAPSULE BY MOUTH THREE [...] HC BMI BSA BMI Percentile O2 Sat(%) 04/17/2018 1:08:00 PM 124 mmHg 78 mmHg 89 bpm 18 rpm 98.2 F 184.5 lbs 62 in 33.7451 kg/m 1.9133 m 96 % 04/15/2018 12:34:00 PM 136 mmHg 80 mmHg 92 bpm 16 rpm 98.2 F 183 lbs 62 in 33.47 kg/m2 1.91 m2 92 % 03/19/2018 8:37:00 AM 128 mmHg 82 mmHg 96 bpm 18 rpm 97.8 F 178.125 lbs 62 in 32.5792 kg/m 1.88 m 96 % 01/07/2018 10:34:00 AM 138 mmHg 74 mmHg 99 bpm 18 rpm 98.1 F 176.5 lbs 62 in 32.28 kg/m2 1.87 m2 95 % 12/17/2017 10:37:00 AM 126 mmHg 84 mmHg 98 bpm 18 rpm 98.1 F 173.25 lbs 62 in 31.6875 kg/m 1.8541 m 95 % 10/14/2017 11:09:00 AM 142 mmHg 80 mmHg 96 bpm 18 rpm 96.8 F 176 lbs 62 in 32.19 kg/m2 1.87 m2 96 % 08/06/2017 3:23:00 PM 120 mmHg 78 mmHg 97 bpm 16 rpm 97.4 F 166.375 lbs 62 in 30.4301 kg/m 1.8169 m 97 % 07/09/2017 11:37:00 AM 156 mmHg 84 mmHg 95 bpm 24 rpm 96.6 F 166 lbs 62 in 30.36 kg/m2 1.81 m2 95 % 06/11/2017 10:11:00 AM 112 mmHg 70 mmHg 82 bpm 20 rpm 96.9 F 169.25 lbs 62 in 30.9559 kg/m 1.8326 m 98 % 05/07/2017 10:30:00 AM 122 mmHg [...] rpm 96.4 F 172 lbs 62 in 31.4589 kg/m 1.8474 m 94 % 10/16/2016 10:30:00 AM 112 mmHg 66 mmHg 88 bpm 18 rpm 98.2 F 169.25 lbs 62 in 30.96 kg/m2 1.83 m2 98 % 09/19/2016 11:38:00 AM 130 mmHg [...] rpm 98.4 F 165 lbs 62 in 30.18 kg/m2 1.81 m2 99 % 11/02/2015 11:09:00 AM 124 mmHg 82 mmHg 84 bpm 16 rpm 97.4 F 166 lbs 62 in 30.3615 kg/m 1.8149 m 98 % 09/08/2015 2:33:00 PM 130 mmHg 88 mmHg 86 bpm 16 rpm 96.6 F 168 lbs 62 in 30.73 kg/m2 1.83 m2 98 % 09/04/2015 1:53:00 PM 136 mmHg 70 mmHg 82 bpm 20 rpm 98.6 F 171 lbs 62 in 31.276 kg/m 1.842 m 97 % 08/24/2015 10:34:00 AM 118 mmHg 80 mmHg 78 bpm 18 rpm 98.3 F 168 lbs 62 in 30.73 kg/m2 1.83 m2 07/12/2015 2:04:00 PM 130 mmHg 86 mmHg 80 bpm 18 rpm 96.5 F 165 lbs 62 in 30.1786 kg/m 1.8094 m 96 % 06/15/2015 8:22:00 AM 122 mmHg 72 mmHg 88 bpm 18 rpm 97.2 F 167 lbs 62 in 30.54 kg/m2 1.82 m2 98 % 05/05/2015 9:45:00 AM 112 mmHg 80 mmHg 78 bpm 18 rpm 96.1 F 163 lbs 62 in 29.8128 kg/m 1.7984 m 04/26/2015 10:50:00 AM 120 mmHg 80 mmHg [...] Reviewed 06/15/2015 12:00 AM Rocephin 1 gram [facility]#[id number] Reviewed 09/04/2015 4:29 PM URINALYSIS AUTO W/O [...] 07/02/2016 12:00 AM Toradol 30 Mg Injection, [facility] Medicare Reviewed 07/02/2016 12:00 AM Phenergan 25mg Injection, [facility] Medicare Reviewed 07/18/2016 12:00 AM MRI [...] mg/dLDATE/TIME CALLED: 05/1100 READ BACK BY: KINDRA MARES/CE SODIUM 130.0 mmol/LPOTASSIUM 3.90 mmol/ LCHLORIDE 94.0 [...] tags, multiple acquired Apr 15 2018 12:34PM Payers Insurance Name Company Name Plan Name Plan Number Policy Number Policy Group Number Start Date [facility] - [facility] [id number] N/A [facility] - [facility] [id number] N/A [place] [facility] Medical Assistance Prog [id number] Monday, 2009 [place] [facility] - [facility] [id number] N/A [facility] - [facility] [id number] July [facility] [id number] N/A History of Encounters Visit Date Visit Type Provider 04/17/2018 Office visit Viet Ji MD 04/15/2018 [...] Office visit Viet Ji MD 10/28/2013 Hospital Corby Carlin MD 10/02/2013 [facility] Corby Carlin MD 08/18/2013 Office visit Viet [...] 11/30/2011 Office visit Viet Ji MD 11/17/2011 [facility] Olegario Lay MD 11/16/2011 [facility] Olegario Lay MD 11/15/2011 Hospital Corby Carlin MD 11/01/2011 Office visit Viet Ji MD 09/05/2011 Office visit Viet Ji MD 04/23/2011 Office visit Viet Ji MD 04/15/2011 [facility] Olegario Lay MD 04/15/2011 [facility] Jenny Jenkins MD 04/14/2011 [facility] Olegario Lay MD 04/09/2011 Office visit Viet iJ MD 03/15/2011 Office visit Sheron Marsh APRN 01/01/2011 Office visit Star Gomez MD 12/22/2010 Office visit Viet Ji MD 11/23/2010 Office visit Viet Ji MD 10/06/2010 Office visit Niranjan Castro MD 08/07/2010 Office visit Viet Ji MD 07/07/2010 [facility] Homero Jarrett MD 07/06/2010 [facility] Homero Jarrett MD 07/05/2010 [facility] Corby Carlin MD 06/19/2010 Office visit Viet iJ MD 06/01/2010 Office visit Viet Ji MD 05/04/2010 Office visit Viet Ji MD 04/07/2010 Office visit Viet Ji MD 03/31/2010 [facility] Homero Jarrett MD 03/30/2010 [facility] Homero Jarrett MD 03/29/2010 Laboratory Homero Jarrett MD 03/29/2010 [facility] Homero Jarrett MD 03/28/2010 [facility] Homero Jarrett MD 03/26/2010 [facility] Homero Jarrett MD 03/25/2010 [facility] Homero Jarrett MD 03/21/2010 Office visit Ray Gutiérrez MD 03/07/2010 Office visit Viet Ji MD 02/28/2010 [facility] Homero Jarrett MD 02/27/2010 [facility] Homero Jarrett MD 02/26/2010 [facility] Niranjan Castro MD 02/25/2010 [facility] Niranjan Castro MD 02/24/2010 [facility] Homero Jarrett MD 02/23/2010 Laboratory Homero Jarrett MD 02/15/2010 Office visit Ray Gutiérrez MD 02/06/2010 Office visit Viet Ji MD 02/02/2010 Office visit Ray Gutiérrez MD 01/22/2010 [facility] Homero Jarrett MD 01/21/2010 [facility] Homero Jarrett MD 01/20/2010 [facility] Homero Jarrett MD 01/19/2010 [facility] Homero Jarrett MD 01/17/2010 Office visit Viet Ji MD 01/10/2010 [facility] Homero Jarrett MD 01/08/2010 [facility] Lillie Licea MD 12/27/2009 Office visit Viet Ji MD 08/10/2009 Office visit Viet Ji MD 06/22/2009 Office visit Viet Ji MD 03/30/2009 Laboratory Viet Ji MD
--- OUTSIDE RECORDS SUMMARY | 2018-07-24 21:25 | XMS REPORT ---
Demographics Address [address] [place] [address] Preferred Language Slovak Marital Status Cheondoism Affiliation Unknown Race White Ethnic Group Not or Author Author Viet Ji [facility] Address [address] [place], [place] [id number] Care Team Providers Care Hand Painter Name Role Phone Vite Ji PCP Viet Ji PreferredProvider Allergies and [...] metabolic panel 07/29/2013 12:00 AM Urine Culture, [place] Count 07/29/2013 12:00 AM diabetic check copd, [...] TAKE 1 CAPSULE BY MOUTH TWICE DAILY zolpidem 10 mg oral tablet 12/02/2013 TAKE 1 TABLET BY MOUTH AT BEDTIME FOR INSOMNIA topiramate 100 mg oral tablet 12/09/2013 TAKE [...] by oral route 2 times per day rosuvastatin 20 mg oral tablet 05/15/2017 05/10/2018 TAKE 1 TABLET BY MOUTH ONCE EVERY DAY Shyam SoloStar 300 unit/mL (1.5 mL) subcutaneous insulin [...] 1 TABLET BY MOUTH DAILY AT BEDTIME Ambien 10 mg oral tablet 01/07/2018 05/07/2018 take 1 tablet (10 mg) by oral route once daily at bedtime for 30 days Vitamin D2 50,000 unit oral capsule 02/03/2018 [...] MOUTH EVERY SIX HOURS NEEDED FOR NAUSEA Dilaudid 4 mg oral tablet 03/19/2018 take 1 tablet every 8hr as needed hydrocodone-acetaminophen 10-325 mg oral tablet 03/19/2018 04/18/2018 take 1 tablet by oral route every 6 hours as needed for pain for 30 days Klonopin 1 mg oral tablet 03/19/2018 take 1 tablet every 8hr as needed. metoclopramide HCl 10 mg oral tablet 04/03/2018 TAKE 1 TABLET BY MOUTH FOUR TIMES DAILY CONTOUR NEXT MEDIC TST/STRP 50 04/03/2018 DIRECTED diclofenac sodium 1 % topical gel 04/11/2018 APPLY 4 GMS TO AFFECTED AREA(S ) EVERY DAY Movantik 25 mg oral tablet 04/17/2018 05/15/2018 take 1 tablet (25 mg) by oral route once daily in the morning for 28 days Name Start Date Expiration Date SIG Comments Augmentin 875-125 mg oral tablet 06/22/2009 07/06/2009 take 1 tablet by oral route every 12 hours for 14 days diazepam 5 mg oral tablet 08/03/2009 08/18/2009 TAKE 1 TABLET BY MOUTH EVERY 8 HOURS NEEDED [place] 10-325 mg oral tablet 10/31/2009 01/29/2010 take [...] syringe-needle U-100 1 mL 30 gauge x 11/27 miscellaneous syringe 201301/29/2014 USE DIRECTED [facility] CONTOUR [...] TAKE 1 TABLET BY MOUTH ONCE DAILY CONTOUR MITCHELL NEXT 05/20/2017 05/25/2017 DIRECTED Cipro 500 mg oral tablet 06/18/2017 06/25/2017 take 1 tablet (500 mg) by oral route every 12 hours for 7 days Compazine 10 mg oral tablet 06/25/2017 06/25/2017 take 1 tablet by oral route 4 times a day as needed BD Insulin Syringe Ultra-Fine 1/2 mL 30 gauge x 07/16" miscellaneous syringe 08/1508/15/2017 use with insulin 3 [...] route every 12 hours for 7 days Discontinued Name Start Date Discontinued Date [...] 1 TABLET BY MOUTH TWICE DAILY ERGOCALCIFEROL 90765 UNIT CAPS 09/07/2015 06/14/2016 Take 1 capsule [...] Reviewed 06/15/2015 12:00 AM Rocephin [address] [facility]#[id number] Reviewed 09/04/2015 4:29 PM URINALYSIS AUTO W/O [...] 07/02/2016 12:00 AM Toradol 30 Mg Injection, [facility] Medicare Reviewed 07/02/2016 12:00 AM Phenergan 25mg Injection, [facility] Medicare Reviewed 07/18/2016 12:00 AM MRI NECK [...] 2:28 PM GLUCOSE 403.0 mg/dLDATE/TIME CALLED: 11/23 1517 READ BACK BY : KINDRA Parmar SODIUM [...] mg/dLDATE/TIME CALLED: 05/1100 READ BACK BY: KINDRA HOLDERITT/MITCHEL SODIUM 130.0 mmol/LPOTASSIUM 3.90 mmol/ LCHLORIDE 94.0 [...] CALLED: 04/09 1337 READ BACK BY: JULIANNE CUEVASE SODIUM 127.0 mmol/LPOTASSIUM 4.10 mmol/LCHLORIDE 91.0 mmol/LCO2 [...] opioids, initial encounter Apr 17 2018 1:10PM Payers Insurance Name Company Name Plan Name Plan Number Policy Number Policy Group Number Start Date [facility] - [facility] [id number] N/A [facility] - [facility] [id number] N/A [place] Medical Assistance [facility] Medical [facility] Prog [id number] Monday, 2009 [place] [facility] [id number] N/A [facility] - [facility] [id number] July [facility] [id number] N/A History of Encounters Visit Date Visit [...] MD 11/17/2011 Hospital Olegario Lay MD 11/16/2011 [facility] [...]
--- OUTSIDE RECORDS SUMMARY | 2018-07-24 21:28 | XMS REPORT ---
Demographics Address [address] [place] [address] Preferred Language Nepali Marital Status Muslim Affiliation Unknown Race White Ethnic Group Not or Author Author Viet Ji [facility] Address [address] [place], [place] [address] Care Team Providers Care Sow Farm Manager Name Role Phone Viet Ji PCP Viet [...] metabolic panel 07/29/2013 12:00 AM Urine Culture, [place] Count 07/29/2013 12:00 AM diabetic check copd, [...] times per day as needed for cough diclofenac sodium 3 % topical gel 11/11/2017 apply 4gm to affected area every day CONTOUR NEXT MEDIC TST/STRP 50 11/15/2017 DIRECTED metoclopramide HCl 10 mg oral tablet 12/05/2017 TAKE 1 TABLET BY MOUTH FOUR TIMES DAILY amitriptyline 10 mg oral tablet 01/06/2018 TAKE [...] take 1 tablet every 8hr as needed. Name Start Date Expiration Date SIG Comments Augmentin 875-125 mg oral tablet 06/22/2009 07/06/2009 take 1 tablet by oral route every 12 hours for 14 days diazepam 5 mg oral tablet 08/03/2009 08/18/2009 TAKE 1 TABLET BY MOUTH EVERY 8 HOURS NEEDED [place] 10-325 mg oral tablet 10/31/2009 01/29/2010 take [...] Strips Miscellaneous Strip 06/12/2012 03/09/2013 test BS tidoc et prnICD-9 250.01 clopidogrel 75 mg oral [...] 1 TABLET BY MOUTH TWICE DAILY ERGOCALCIFEROL 19669 UNIT CAPS 09/07/2015 06/14/2016 Take 1 capsule [...] HC BMI BSA BMI Percentile O2 Sat(%) 03/19/2018 8:37:00 AM 128 mmHg 82 mmHg [...] 1.7274 m Social History Name Description Comments recieving Social Security Disability Has never used alcohol Denies illicit substance abuse disabeled lives alone in a house Completed some [...] Reviewed 06/15/2015 12:00 AM Rocephin 1 gram [facility]#[id number] Reviewed 09/04/2015 4:29 PM URINALYSIS AUTO W/O [...] 07/02/2016 12:00 AM Toradol 30 Mg Injection, [facility] Medicare Reviewed 07/02/2016 12:00 AM Phenergan 25mg Injection, [facility] Medicare Reviewed 07/18/2016 12:00 AM MRI [...] CALLED: 04/09 1337 READ BACK BY: JULIANNE OSTLIE SODIUM 127.0 mmol/LPOTASSIUM 4.10 mmol/LCHLORIDE 91.0 mmol/LCO2 [...] 4.79 HGB 14.40 g/dLHCT 42.20 %MCV 88.0 [facility] 34.10 g/dLRDW SD 43 RDW CV 13.40 [...] 8:39AM Chronic pain Mar 19 2018 8:39AM Payers Insurance Name Company Name Plan Name Plan Number Policy Number Policy Group Number Start Date 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 - [facility] [id number] July [facility] [id number] N/A History of Encounters Visit Date Visit Type Provider 03/19/2018 Office visit Viet Ji MD 01/07/2018 [...] MD 10/28/2013 Hospital Corby Carlin MD 10/02/2013 Hospital Corby Carlin MD 08/18/2013 Office visit Viet Ji MD 07/29/2013 Office visit Sheron Marsh MEAT INSPECTOR 05/01/2013 Hospital Olegario Lay MD 04/28/2013 Office [...] 11/30/2011 Office visit Viet Ji MD 11/17/2011 [facility] Olegario Lay MD 11/16/2011 [facility] Olegario Lay MD 11/15/2011 [facility] Corby Carlin MD 11/01/2011 Office visit Viet Ji MD 09/05/2011 Office visit Viet Ji MD 04/23/2011 Office visit Viet Ji MD 04/15/2011 [facility] Olegario Lay MD 04/15/2011 [facility] Jenny Jenkins MD 04/14/2011 Hospital Olegario Lay MD 04/09/2011 Office visit Viet Ji MD 03/15/2011 Office visit Sheron Marsh APRN 01/01/2011 Office visit Star Gomez MD 12/22/2010 Office visit Viet Ji MD 11/23/2010 Office visit Viet Ji MD 10/06/2010 Office visit Niranjan Castro MD 08/07/2010 Office visit Viet Ji MD 07/07/2010 [facility] Homero Jarrett MD 07/06/2010 [facility] Homero Jarrett MD 07/05/2010 Hospital Corby Carlin MD 06/19/2010 Office visit Viet Ji MD 06/01/2010 Office visit Viet Ji MD 05/04/2010 Office visit Viet Ji MD 04/07/2010 Office visit Viet Ji MD 03/31/2010 [facility] Homero Jarrett MD 03/30/2010 [facility] Homero Jarrett MD 03/29/2010 Laboratory Homero Jarrett MD 03/29/2010 [facility] Homero Jarrett MD 03/28/2010 [facility] Homero Jarrett MD 03/26/2010 [facility] Homero Jarrett MD 03/25/2010 [facility] Homero Jarrett MD 03/21/2010 Office visit Ray Gutiérrez MD 03/07/2010 Office visit Viet Ji MD 02/28/2010 [facility] Homero Jarrett MD 02/27/2010 [facility] Homero Jarrett MD 02/26/2010 [facility] Niranjan Castro MD 02/25/2010 [facility] Niranjan Castro MD 02/24/2010 [facility] Homero Jarrett MD 02/23/2010 Laboratory Homero Jarrett MD 02/15/2010 Office visit Ray Gutiérrez MD 02/06/2010 Office visit Viet Ji MD 02/02/2010 Office visit Ray Gutiérrez MD 01/22/2010 [facility] Homero Jarrett MD 01/21/2010 [facility] Homero Jarrett MD 01/20/2010 [facility] Homero Jarrett MD 01/19/2010 [facility] Homero Jarrett MD 01/17/2010 Office visit Viet Ji MD 01/10/2010 [facility] Homero Jarrett MD 01/08/2010 [facility] Lillie Licea MD 12/27/2009 Office visit Viet Ji MD 08/10/2009 Office visit Viet Ji MD 06/22/2009 Office visit Viet Ji MD 03/30/2009 Laboratory Viet Ji MD
[2018-07-24] MEDS ORDERED: NS IV 1000 ML 1,000 ML IV ONE (21:34)
[2018-07-24] MEDS ORDERED: ONDANSETRON 4 MG (ZOFRAN) ORAL DISSOLVE TAB SL STA (21:34)
--- OUTSIDE RECORDS SUMMARY | 2018-07-24 21:36 | XMS REPORT ---
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 Dr Spicer appt 05/21 @ 1:45pm Brain (including stem), MRI w and w/o contrast 06/02/2014 12:00 AM Medications Active Name Start Date Estimated Completion Date SIG Comments nitroglycerin 400 mcg/spray translingual spray,non-aerosol place 1 spray (0.4 mg) by translingual route onto or under the tongue at the first sign of an attack; no more than 3 sprays are recommended within a 15 minute period. Glucagon Emergency Kit (human) 1 mg injection kit 05/21/2012 use as directed. clopidogrel 75 mg oral tablet 07/20/2013 TAKE ONE TABLET BY MOUTH DAILY Pancreaze 4,200-10,000- 17,500 unit oral capsule,delayed release(DR/EC) 2013 TAKE ONE CAPSULE BY MOUTH THREE TIMES DAILY BEFORE MEALS trazodone 150 mg oral tablet 08/13/2013 TAKE 1 TABLET BY MOUTH AT BEDTIME NEEDED FOR INSOMNIA zolpidem 10 mg oral tablet 08/13/2013 TAKE 1 TABLET BY MOUTH AT BEDTIME FOR INSOMNIA hydrocodone-acetaminophen 7.5-325 mg oral tablet 09/08/2013 TAKE 1 TABLET BY MOUTH EVERY SIX HOURS NEEDED FOR PAIN duloxetine 30 mg oral capsule,delayed release(DR/EC) 09/14/2013 TAKE 1 CAPSULE BY MOUTH DAILY hydrocodone-acetaminophen 7.5-325 mg oral tablet 09/30/2013 TAKE 1 TABLET BY MOUTH EVERY SIX HOURS NEEDED FOR PAIN topiramate 100 mg oral tablet 10/12/2013 TAKE [...] TABLET BY MOUTH AT BEDTIME FOR INSOMNIA hydrocodone-acetaminophen 7.5-325 mg oral tablet 12/02/2013 TAKE 1 TABLET BY MOUTH EVERY SIX HOURS NEEDED FOR PAIN topiramate 100 mg oral tablet 12/09/2013 TAKE [...] BY MOUTH EVERY DAY FOR 7 DAYS polyethylene glycol 3350 17 gram/dose oral powder 02/25/2014 USE 17 GRAMS EVERY MORNING DIRECTED duloxetine 30 mg oral capsule,delayed release(DR/EC) 03/10/2014 TAKE 1 CAPSULE BY MOUTH DAILY Lyrica 75 mg oral capsule 03/12/2014 TAKE 1 CAPSULE BY MOUTH TWICE DAILY alprazolam 1 mg oral tablet 03/12/2014 TAKE 1 TABLET BY MOUTH EVERY 8 HOURS NEEDED fenofibrate nanocrystallized 145 mg oral tablet 03/16/2014 TAKE 1 TABLET BY MOUTH EVERY DAY hydrocodone-acetaminophen 7.5-325 mg oral tablet 04/01/2014 TAKE 1 TABLET BY MOUTH EVERY SIX HOURS NEEDED FOR PAIN furosemide 40 mg oral tablet 04/22/2014 TAKE 1 TABLET BY MOUTH ONCE DAILY clopidogrel 75 mg oral tablet 07/12/2014 TAKE ONE TABLET BY MOUTH DAILY duloxetine 30 mg oral capsule,delayed release(DR/EC) 08/10/2014 TAKE 1 CAPSULE BY MOUTH DAILY metoclopramide HCl 10 mg oral tablet 10/22/2014 TAKE 1 TABLET BY MOUTH FOUR TIMES DAILY lansoprazole 30 mg oral capsule,delayed release(DR/EC) 10/22/2014 TAKE 1 CAPSULE BY MOUTH EVERY DAY duloxetine 30 mg oral capsule,delayed release(DR/EC) 11/29/2014 TAKE 1 CAPSULE BY MOUTH DAILY Lyrica 75 mg oral capsule 12/21/2014 TAKE 1 CAPSULE BY MOUTH TWICE DAILY Pancreaze 4,200-10,000- 17,500 unit oral capsule,delayed release(DR/EC) 2014 TAKE ONE CAPSULE BY MOUTH THREE TIMES DAILY BEFORE MEALS furosemide 40 mg oral tablet 04/19/2015 TAKE 1 TABLET BY MOUTH ONCE DAILY metoclopramide HCl 10 mg oral tablet 05/09/2015 TAKE 1 TABLET BY MOUTH FOUR TIMES DAILY clopidogrel 75 mg oral tablet 06/30/2015 TAKE ONE TABLET BY MOUTH DAILY TRUEBALANCE STRIPS 09/07/2015 USE DIRECTED Voltaren 1 % topical gel 10/04/2015 APPLY 4 GMS TO THE AFFECTED AREA EVERY DAY Topamax 200 mg oral tablet take 1 tablet (200 mg) by oral route 2 times per day metoclopramide HCl 10 mg oral tablet 11/22/2015 TAKE 1 TABLET BY MOUTH FOUR TIMES DAILY duloxetine 30 mg oral capsule,delayed release(DR/EC) 11/22/2015 TAKE 1 CAPSULE BY MOUTH DAILY topiramate 200 mg oral tablet 01/17/2016 TAKE 1 TABLET BY MOUTH TWICE DAILY zolpidem 10 mg oral tablet 01/17/2016 TAKE 1 TABLET BY MOUTH AT BEDTIME FOR INSOMNIA alprazolam 1 mg oral tablet 01/24/2016 TAKE 1 TABLET BY MOUTH EVERY 8 HOURS NEEDED fenofibrate nanocrystallized 145 mg oral tablet 01/24/2016 TAKE 1 TABLET BY MOUTH EVERY DAY Lyrica 75 mg oral capsule 01/24/2016 take 1 capsule (75 mg) by oral route 2 times per day omega-3 acid ethyl esters 1 gram oral capsule 01/24/2016 TAKE 4 CAPSULES BY MOUTH EVERY DAY Zofran ODT 4 mg oral tablet,disintegrating 01/27/2016 dissolve 1 tablet by oral route every 8 hours as needed fluticasone 50 mcg/actuation nasal spray,suspension 02/20/2016 spray 2 sprays (100 mcg) in each nostril by intranasal route once daily as needed polyethylene glycol 3350 17 gram/dose oral powder 02/23/2016 USE 17 GRAMS EVERY MORNING DIRECTED losartan 50 mg oral tablet take 1 [...] 1 TABLET BY MOUTH ONCE EVERY DAY Amitiza 24 mcg oral capsule 09/21/2016 TAKE 1 CAPSULE BY MOUTH TWICE DAILY WITH FOOD AND WATER *TRUE METRIX TEST STRIPS - SUNMARK 09/21/2016 USE DIRECTED Breo Ellipta 100-25 mcg/dose inhalation blister with device 10/15/2016 INHALE ONE PUFF BY MOUTH ONCE DAILY Zofran (as hydrochloride) 4 mg oral tablet take 1 tablet every 8hr prn nausea Tessalon Perles 100 mg oral capsule 11/08/2016 take 1 capsule (100 mg) by oral route 3 times per day as needed for cough Pancreaze 4,200-14,200- 24,600 unit oral capsule,delayed release(DR/EC) 2016 TAKE ONE CAPSULE BY MOUTH THREE TIMES DAILY BEFORE MEALS duloxetine 30 mg oral capsule,delayed release(DR/EC) 11/19/2016 TAKE 1 CAPSULE BY MOUTH DAILY Rozerem 8 mg oral tablet 12/13/2016 TAKE 1 TABLET BY MOUTH AT BEDTIME Rozerem 8 mg oral tablet 12/13/2016 TAKE 1 TABLET BY MOUTH AT BEDTIME fenofibrate nanocrystallized 145 mg oral tablet 12/19/2016 TAKE 1 TABLET BY MOUTH EVERY DAY potassium chloride 10 mEq oral tablet extended release 12/20/2016 TAKE 3 TABLETS BY MOUTH TWICE DAILY ProAir HFA 90 mcg/actuation inhalation HFA aerosol inhaler 01/18/2017 INHALE 2 PUFFS BY MOUTH FOUR TIMES DAILY NEEDED diclofenac sodium 1 % topical gel 01/21/2017 APPLY 4 GMS TO AFFECTED AREA(S ) EVERY DAY fluticasone 50 mcg/actuation nasal spray,suspension 02/18/2017 spray 2 sprays (100 mcg) in each nostril by intranasal route once daily as needed polyethylene glycol 3350 17 gram/dose oral powder 02/18/2017 USE 17 GRAMS EVERY MORNING DIRECTED Rozerem 8 mg oral tablet 02/18/2017 TAKE 1 TABLET BY MOUTH AT BEDTIME spironolactone 50 mg oral tablet 02/28/2017 10/26/2017 take 1 tablet (50 mg) by oral route once daily for 30 days Depakote 500 mg oral tablet,delayed release (DR/EC) take 1 tablet (500 mg) by oral route 2 times per day gabapentin 800 mg oral tablet 03/21/2017 07/19/2017 TAKE 1 TABLET BY MOUTH THREE TIMES DAILY Ambien 10 mg oral tablet 03/22/2017 07/20/2017 take 1 tablet (10 mg) by oral route once daily at bedtime for 30 days topiramate 200 mg oral tablet 04/11/2017 09/08/2017 TAKE 1 TABLET BY MOUTH TWICE DAILY clopidogrel 75 mg oral tablet 04/11/2017 03/07/2018 TAKE ONE TABLET BY MOUTH DAILY omega-3 acid ethyl esters 1 gram oral capsule 05/15/2017 09/12/2017 TAKE 2 CAPSULES BY MOUTH TWICE DAILY rosuvastatin 20 mg oral tablet 05/15/2017 05/10/2018 TAKE 1 TABLET BY MOUTH ONCE EVERY DAY Klonopin 1 mg oral tablet 05/17/2017 take 1 tablet every 8hr as needed. Dilaudid 4 mg oral tablet 06/18/2017 take 1 tablet every 8hr as needed hydrocodone-acetaminophen 10-325 mg oral tablet 06/18/2017 07/18/2017 take 1 tablet by oral route every 6 hours as needed for pain for 30 days Shyam SoloStar 300 unit/mL (1.5 mL) subcutaneous insulin pen inject by subcutaneous route as per insulin protocol Name Start Date Expiration Date SIG Comments Augmentin 875-125 mg oral tablet 06/22/2009 07/06/2009 take 1 tablet by oral route every 12 hours for 14 days diazepam 5 mg oral tablet 08/03/2009 08/18/2009 TAKE 1 TABLET BY MOUTH EVERY 8 HOURS NEEDED Flora 10-325 mg oral tablet 10/31/2009 01/29/2010 take [...] BY MOUTH AT BEDTIME NEEDED FOR INSOMNIA potassium chloride 10 mEq oral tablet extended release 07/21/2013 12/18/2013 take 2 tablets bid furosemide 40 mg oral tablet 09/14/2013 04/12/2014 [...] 2 times per day for 30 days Rozerem 8 mg oral tablet 10/16/2016 11/15/2016 take 1 tablet (8 mg) by oral route once daily at bedtime for 30 days amoxicillin 875 mg oral [...] 2 times per day for 7 days furosemide 40 mg oral tablet 04/15/2017 04/15/2017 TAKE 1 TABLET BY MOUTH ONCE DAILY CONTOUR MITCHELL NEXT 05/20/2017 05/25/2017 DIRECTED Cipro 500 mg oral tablet 06/18/2017 06/25/2017 take 1 tablet (500 mg) by oral route every 12 hours for 7 days Compazine 10 mg oral tablet 06/25/2017 06/25/2017 take 1 tablet by oral route 4 times a day as needed Discontinued Name Start Date Discontinued Date SIG [...] 1 % topical cream 12/25/2011 apply a 16 inch (1.5 mm) thick layer to entire [...] TAKE 4 CAPSULES BY MOUTH EVERY DAY Tescarlos Perles 100 mg oral capsule 10/28/2013 05/13/2014 [...] TAKE 2 TABLETS BY MOUTH TWICE DAILY potassium chloride 10 mEq oral tablet extended [...] 2 times per day for 30 days Topamax 100 mg oral tablet 08/24/2015 09/04/2015 take 1 tablet (100 mg) by oral route 2 times per day for [address] Hardin topiramate 50 mg oral tablet 08/29/2015 09/04/2015 TAKE 1 TABLET BY MOUTH TWICE DAILY ERGOCALCIFEROL 16031 UNIT CAPS 09/07/2015 06/14/2016 Take 1 capsule [...] MOUTH EVERY 8 HOURS NEEDED FOR ANXIETY pantoprazole 40 mg oral tablet,delayed release (DR/EC) 10/17/2016 07/09/2017 TAKE 1 TABLET BY MOUTH ONCE EVERY DAY Zofran ODT 4 mg oral tablet,disintegrating 10/23/2016 10/23/2016 dissolve 1 tablet by oral route every 8 hours as needed Dexilant 60 mg oral capsule,biphase delayed releas 12/20/2016 07/09/2017 TAKE 1 CAPSULE BY MOUTH ONCE EVERY DAY Dilaudid 4 mg oral tablet 02/14/2017 02/28/2017 may take 1 tablet every 8hrs prn pain Dilantin 30 mg oral capsule 03/01/2017 metoclopramide HCl 10 mg oral tablet 04/11/2017 07/09/2017 TAKE 1 TABLET BY MOUTH FOUR TIMES DAILY Problem List Description Status Onset Chronic pancreatitis Active 11/23/2010 Diabetes Mellitus, Type II, Uncontrolled Active Chronic Obstructive Pulmonary Disease Active Diabetes mellitus with neuropathy Active CVA (cerebral infarction) Active Gastroesophageal Reflux Active Hypertension Active Hyperlipidemia, mixed Active Insomnia Active Anxiety Active Atrial Fibrillation Active Seizures Active Pancreatitis Active Heart disease Active cervical arthrosis Active Vital Signs Date Time BP-Sys(mm[Hg] BP-Tanika(mm[Hg]) HR(bpm) RR(rpm) Temp WT HT HC BMI BSA BMI Percentile O2 Sat(%) 07/09/2017 11:37:00 AM 156 mmHg 84 mmHg [...] rpm 98.4 F 148 lbs 63 in 26.22 kg/m2 1.73 m2 Social History Name Description Comments recieving Social [...] Reviewed 06/15/2015 12:00 AM Rocephin [address] [facility]#7870-0239-36 Reviewed 09/04/2015 4:29 PM URINALYSIS AUTO W/O [...] 07/02/2016 12:00 AM Toradol 30 Mg Injection, [facility] Medicare Reviewed 07/02/2016 12:00 AM Phenergan 25mg Injection, [facility] Medicare Reviewed 07/18/2016 12:00 AM MRI NECK [...] Returned 06/24/2017 12:00 AM C-REACTIVE PROTEIN Returned 07/17/2012 12:00 AM COMPLETE CBC W/AUTO DIFF WBC Reviewed 07/17/2012 12:00 AM COMPREHEN METABOLIC PANEL Reviewed 07/17/2012 12:00 AM GLYCOSYLATED HEMOGLOBIN TEST Reviewed 08/28/2012 12:00 AM CHEST X-RAY 2VW FRONTAL&LATL Reviewed 08/28/2012 12:00 AM COMPLETE CBC W/AUTO DIFF WBC Reviewed 08/28/2012 12:00 AM COMPREHEN METABOLIC PANEL Reviewed 07/14/2013 12:00 AM IRRIG DRUG DELIVERY DEVICE [...] AA 47 eGFR 39 eGFR AA* 47 09/04/2015 4:29 PM Clarity Ur cloudy Color [...] unspecified Gastroesophageal Reflux Heart disease Hypertension Hyperlipidemia, mixed Kidney Calculus Aug 10 2009 8:42AM ADD [...] ulcer stage I Mar 15 2011 10:54AM Petechial Rash Apr 09 2011 10:33AM Upper [...] neuropathy, unspecified Jul 09 2017 11: 38AM Payers Insurance Name Company Name Plan Name Plan Number Policy Number Policy Group Number Start Date [facility] [id number] N/A [facility] [id number] N/A [place] [employer] [id number] Monday, 2009 [place] [employer] - [facility] [employer] - [facility] [id number] N/A [facility] [id number] July [facility] [id number] N/A History of Encounters Visit Date Visit Type Provider 07/09/2017 Procedures Olegario Lay MD 06/11/2017 Office [...] Office visit Viet Ji MD 07/18/2014 Hospital Mauro Carlin MD 07/09/2014 Hospital Olegario Lay MD [...] MD 10/28/2013 Hospital Mauro Carlin MD 10/02/2013 Hospital Corby Carlin MD [...] MD 11/17/2011 Hospital Olegario Lay MD 11/16/2011 [facility] Olegario Lay MD 11/15/2011 Hospital Corby Carlin MD 11/01/2011 Office visit Viet Ji MD 09/05/2011 Office visit Viet Ji MD 04/23/2011 Office visit Viet Ji MD 04/15/2011 [facility] Olegario Lay MD 04/15/2011 [facility] Jenny Jenkins MD 04/14/2011 [facility] Olegario Lay MD 04/09/2011 Office visit Viet Ji MD 03/15/2011 Office visit Sheron Marsh APRN 01/01/2011 Office visit Star Gomez MD 12/22/2010 Office visit Viet Ji MD 11/23/2010 Office visit Viet Ji MD 10/06/2010 Office visit Niranjan Castro MD 08/07/2010 Office visit Viet Ji MD 07/07/2010 [facility] Homero Jarrett MD 07/06/2010 [facility] Homero Jarrett MD 07/05/2010 [facility] Corby Carlin MD 06/19/2010 Office visit Viet Ji MD 06/01/2010 Office visit Viet Ji MD 05/04/2010 Office visit Viet Ji MD 04/07/2010 Office visit Viet Ji MD 03/31/2010 Hospital Homero Jarrett MD 03/30/2010 [facility] Homero Jarrett MD 03/29/2010 Laboratory Homero Jarrett MD 03/29/2010 [facility] Homero Jarrett MD 03/28/2010 [facility] Homero Jarrett MD 03/26/2010 [facility] Homero Jarrett MD 03/25/2010 [facility] Homero Jarrett MD 03/21/2010 Office visit Ray Gutiérrez MD 03/07/2010 Office visit Viet Ji MD 02/28/2010 [facility] Homero Jarrett MD 02/27/2010 [facility] Homero Jarrett MD 02/26/2010 [facility] Niranjan Castro MD 02/25/2010 [facility] Niranjan Castro MD 02/24/2010 [facility] Homero Jarrett MD 02/23/2010 Laboratory Homero Jarrett MD 02/15/2010 Office visit Ray Gutiérrez MD 02/06/2010 Office visit Viet Ji MD 02/02/2010 Office visit Ray Gutiérrez MD 01/22/2010 [facility] Homero Jarrett MD 01/21/2010 [facility] Homero Jarrett MD 01/20/2010 [facility] Homero Jarrett MD 01/19/2010 [facility] Homero Jarrett MD 01/17/2010 Office visit Viet Ji MD 01/10/2010 [facility] Homero Jarrett MD 01/08/2010 [facility] Lillie Licea MD 12/27/2009 Office visit Viet Ji MD 08/10/2009 Office visit Viet Ji MD 06/22/2009 Office visit Viet Ji MD 03/30/2009 Laboratory Viet Ji MD
--- OUTSIDE RECORDS SUMMARY | 2018-07-24 21:39 | XMS REPORT ---
Demographics Address [address] [place] [address] Preferred Language Yoruba Marital Status Sabianist Affiliation Unknown Race White Ethnic Group Not or Author Author Viet Ji [facility] Address [address] [place], [place] [id number] Care Team Providers Care Preventive Medicine Physician Name Role Phone Viet Ji PCP Viet [...] 01/17/2017 12:00 AM BMP 04/10/2012 12:00 AM CBC with Auto 06/24/2017 12:00 AM CMP (comprehensive metabolic panel) 06/24/2017 12:00 AM Chest PA and Lateral - MOB 06/24/2017 12:00 AM CRP 06/24/2017 12:00 AM BMP 08/19/2012 12:00 AM CBC With Auto Differential 08/19/2012 12:00 AM Abdominal radiographs, complete (including decubitus/erect views) 2013 12:00 AM Comprehensive metabolic panel 07/29/2013 12:00 AM Urine Culture, [place] Count 07/29/2013 12:00 AM diabetic check copd, [...] mg injection kit 05/21/2012 use as directed. promethazine 25 mg oral tablet 07/16/2013 TAKE ONE TABLET BY MOUTH EVERY SIX HOURS NEEDED FOR NAUSEA clopidogrel 75 mg oral tablet 07/20/2013 TAKE [...] 08/10/2014 TAKE 1 CAPSULE BY MOUTH DAILY promethazine 25 mg oral tablet 09/14/2014 TAKE 1 TABLET BY MOUTH EVERY SIX HOURS NEEDED FOR NAUSEA metoclopramide HCl 10 mg oral tablet 10/22/2014 [...] 11/22/2015 TAKE 1 CAPSULE BY MOUTH DAILY promethazine 25 mg oral tablet 11/28/2015 TAKE 1 TABLET BY MOUTH EVERY SIX HOURS NEEDED FOR NAUSEA Pancreaze 4,200-10,000- 17,500 unit oral capsule,delayed release(DR/EC) 2015 TAKE ONE CAPSULE BY MOUTH THREE TIMES DAILY BEFORE MEALS topiramate 200 mg oral tablet 01/17/2016 TAKE [...] MOUTH TWICE DAILY WITH FOOD AND WATER promethazine 25 mg oral tablet 06/13/2016 TAKE 1 TABLET BY MOUTH EVERY SIX HOURS NEEDED FOR NAUSEA magnesium oxide 400 mg oral tablet 07/25/2016 take 1 tablet by oral route daily for 30 days ProAir HFA 90 mcg/actuation inhalation HFA aerosol inhaler 07/26/2016 INHALE 2 PUFFS BY MOUTH FOUR TIMES DAILY NEEDED Nebulizer 07/31/2016 as directed K-Tab 10 mEq oral tablet extended release 09/13/2016 3 tabs PO BID losartan 50 mg oral tablet 09/21/2016 TAKE 1 TABLET BY MOUTH ONCE EVERY DAY Amitiza 24 mcg oral capsule 09/21/2016 TAKE 1 CAPSULE BY MOUTH TWICE DAILY WITH FOOD AND WATER *TRUE METRIX TEST STRIPS - SUNMARK 09/21/2016 USE DIRECTED atorvastatin 40 mg oral tablet 09/24/2016 TAKE 1 TABLET BY MOUTH ONCE EVERY DAY Breo Ellipta 100-25 mcg/dose inhalation blister with device 10/15/2016 INHALE ONE PUFF BY MOUTH ONCE DAILY pantoprazole 40 mg oral tablet,delayed release (DR/EC) 10/17/2016 TAKE 1 TABLET BY MOUTH ONCE EVERY DAY Zofran (as hydrochloride) 4 mg oral tablet [...] TAKE 1 TABLET BY MOUTH AT BEDTIME Compazine 10 mg oral tablet 12/17/2016 take 1 tablet by oral route 4 times a day as needed fenofibrate nanocrystallized 145 mg oral tablet 12/19/2016 TAKE 1 TABLET BY MOUTH EVERY DAY potassium chloride 10 mEq oral tablet extended release 12/20/2016 TAKE 3 TABLETS BY MOUTH TWICE DAILY Dexilant 60 mg oral capsule,biphase delayed releas 12/20/2016 TAKE 1 CAPSULE BY MOUTH ONCE EVERY DAY ProAir HFA 90 mcg/actuation inhalation HFA aerosol [...] once daily at bedtime for 30 days metoclopramide HCl 10 mg oral tablet 04/11/2017 2017 TAKE 1 TABLET BY MOUTH FOUR TIMES DAILY topiramate 200 mg oral tablet 04/11/2017 09/08/2017 [...] as needed for pain for 30 days Cipro 500 mg oral tablet 06/18/2017 06/25/2017 take 1 tablet (500 mg) by oral route every 12 hours for 7 days Shyam Mohamud 300 unit/mL (1.5 mL) subcutaneous insulin pen inject by subcutaneous route as per insulin protocol Name Start Date Expiration Date SIG Comments Augmentin 875-125 mg oral tablet 06/22/2009 07/06/2009 take 1 tablet by oral route every 12 hours for 14 days diazepam 5 mg oral tablet 08/03/2009 08/18/2009 TAKE 1 TABLET BY MOUTH EVERY 8 HOURS NEEDED [place] 10-325 mg oral tablet 10/31/2009 01/29/2010 take [...] 3 times a day for 30 days magnesium oxide 400 mg oral tablet 07/02/2016 08/01/2016 take 1 tablet by oral route daily for 30 days zolpidem 10 mg oral [...] 2 times per day for 30 days Dexilant 60 mg oral capsule,biphase delayed releas 09/04/2016 01/02/2017 take 1 capsule (60 mg) by oral route once daily for 30 days Rozerem 8 mg oral [...] DAILY CONTOUR MITCHELL NEXT 05/20/2017 05/25/2017 DIRECTED Discontinued Name Start Date Discontinued Date SIG [...] by oral route 3 times per day ondansetron HCl 4 mg oral tablet 07/29/2013 [...] (500 mg) by oral route once daily Chantix 1 mg oral tablet 09/16/2014 04/20/2015 [...] 1 TABLET BY MOUTH TWICE DAILY ERGOCALCIFEROL 58464 UNIT CAPS 09/07/2015 06/14/2016 Take 1 capsule by mouth once weekly for 8 weeks. Topamax 100 mg oral tablet 11/02/2015 take 1 tablet (100 mg) by oral route 2 times per day Humulin R 100 unit/mL injection solution 06/26/2016 inject by subcutaneous route per prescriber's instructions. Insulin dosing requires individualization. Lyrica 75 mg oral capsule 07/25/2016 10/30/2016 TAKE 1 CAPSULE BY MOUTH TWICE DAILY Levaquin 500 mg oral tablet 11/28/2016 take 1 tablet (500 mg) by oral route once daily for 7 days prednisone 10 mg oral tablets,dose pack 11/28/2016 take as directed alprazolam 1 mg oral tablet 09/28/2016 11/28/2016 TAKE 1 TABLET BY MOUTH EVERY 8 HOURS NEEDED FOR ANXIETY Zofran ODT 4 mg oral tablet,disintegrating 10/23/2016 10/23/2016 dissolve 1 tablet by oral route every 8 hours as needed Dilaudid 4 mg oral tablet 02/14/2017 02/28/2017 [...] HC BMI BSA BMI Percentile O2 Sat(%) 06/11/2017 10:11:00 AM 112 mmHg 70 mmHg 82 bpm 20 rpm 96.9 F 169.25 lbs 62 in 30.96 kg/m2 1.83 m2 98 % 05/07/2017 10:30:00 AM 122 mmHg 78 mmHg 89 bpm 14 rpm 95.7 F 172.125 lbs 95 % 02/28/2017 3:27:00 PM 136 mmHg 74 mmHg 59 bpm 18 rpm 97.3 F 171.125 lbs 62 in 31.30 kg/m2 1.84 m2 96 % 02/15/2017 10:33:00 AM 130 mmHg 76 mmHg 89 bpm 14 rpm 96 F 175.25 lbs 62 in 32.0533 kg/m 1.8648 m 98 % 12/17/2016 10:48:00 AM 117 mmHg 79 mmHg 91 bpm 18 rpm 98 F 166.5 lbs 62 in 30.45 kg/m2 1.82 m2 94 % 11/15/2016 8:18:00 AM 126 mmHg 64 mmHg 88 bpm 18 rpm 97.2 F 168.25 lbs 62 in 30.773 kg/m 1.8271 m 96 % 10/29/2016 2:21:00 PM 134 mmHg 84 mmHg 86 bpm 18 rpm 96.4 F 172 lbs 62 in 31.46 kg/m2 1.85 m2 94 % 10/16/2016 10:30:00 AM 112 mmHg 66 mmHg 88 bpm 18 rpm 98.2 F 169.25 lbs 62 in 30.9559 kg/m 1.8326 m 98 % 09/19/2016 11:38:00 AM 130 mmHg 82 mmHg 91 bpm 24 rpm 95.6 F 168 lbs 62 in 30.73 kg/m2 1.83 m2 98 % 08/28/2016 9:06:00 AM 144 mmHg 84 mmHg 89 bpm 20 rpm 97.8 F 169.5 lbs 62 in 31.0016 kg/m 1.8339 m 99 % 08/22/2016 2:20:00 PM 150 mmHg 82 mmHg 98 bpm 24 rpm 96.1 F 171 lbs 62 in 31.28 kg/m2 1.84 m2 97 % 08/14/2016 10:40:00 AM 120 mmHg 82 mmHg 94 bpm 18 rpm 98.1 F 164 lbs 62 in 29.9957 kg/m 1.8039 m 99 % 07/31/2016 10:59:00 AM 110 mmHg 80 mmHg 88 bpm 16 rpm 96.6 F 166 lbs 62 in 30.36 kg/m2 1.81 m2 99 % 07/02/2016 2:05:00 PM 122 mmHg 76 mmHg 82 bpm 18 rpm 97.8 F 166 lbs 62 in 30.3615 kg/m 1.8149 m 96 % 06/14/2016 10:21:00 AM 120 mmHg 82 mmHg 94 bpm 16 rpm 96.8 F 168 lbs 62 in 30.73 kg/m2 1.83 m2 98 % 05/01/2016 1:37:00 PM 116 mmHg 72 mmHg 89 bpm 18 rpm 97.6 F 159.5 lbs 62 in 29.1726 kg/m 1.779 m 96 % 04/24/2016 9:27:00 AM 128 mmHg 74 mmHg 86 bpm 16 rpm 96.4 F 163 lbs 62 in 29.81 kg/m2 1.80 m2 99 % 02/20/2016 2:14:00 PM 140 mmHg 88 mmHg 86 bpm 16 rpm 97.1 F 160 lbs 62 in 29.2641 kg/m 1.7818 m 96 % 01/27/2016 10:45:00 AM 134 mmHg 82 mmHg 86 bpm 18 rpm 96.9 F 161 lbs 62 in 29.45 kg/m2 1.79 m2 95 % 12/06/2015 9:12:00 AM 98 mmHg 62 mmHg 84 bpm 16 rpm 98.5 F 162 lbs 62 in 29.6299 kg/m 1.7929 m 97 % 11/17/2015 10:09:00 AM 122 mmHg [...] rpm 97.8 F 164 lbs 62 in 29.9957 kg/m 1.8039 m 03/29/2015 1:41:00 PM 126 mmHg 82 mmHg 84 bpm 16 rpm 96.7 F 157 lbs 62 in 28.72 kg/m2 1.76 m2 03/07/2015 2:36:00 PM 130 mmHg 78 mmHg 88 bpm 18 rpm 97.5 F 151.5 lbs 62 in 27.7094 kg/m 1.7338 m 96 % 01/06/2015 8:59:00 AM 132 mmHg 84 mmHg 88 bpm 18 rpm 96.2 F 158 lbs 62 in 28.90 kg/m2 1.77 m2 12/24/2014 11:41:00 AM 120 mmHg 72 mmHg 18 bpm 20 rpm 96.7 F 158 lbs 62 in 28.8983 kg/m 1.7706 m 10/12/2014 9:33:00 AM 132 mmHg 86 mmHg 88 bpm 18 rpm 97.4 F 161 lbs 62 in 29.45 kg/m2 1.79 m2 08/26/2014 9:54:00 AM 134 mmHg 72 mmHg 88 bpm 18 rpm 99 F 167 lbs 62 in 30.5444 kg/m 1.8203 m 07/21/2014 10:07:00 AM 128 mmHg 72 mmHg 80 bpm 18 rpm 96.8 F 160.125 lbs 62 in 29.29 kg/m2 1.78 m2 95 % 06/28/2014 9:39:00 AM 124 mmHg 72 mmHg 88 bpm 18 rpm 97.4 F 156 lbs 62 in 28.5325 kg/m 1.7594 m 06/21/2014 11:02:00 AM 100 mmHg 76 mmHg 76 bpm 20 rpm 97 F 156 lbs 62 in 28.53 kg/m2 1.76 m2 97 % 06/02/2014 10:44:00 AM 112 mmHg 72 mmHg 80 bpm 18 rpm 97.8 F 156 lbs 62 in 28.5325 kg/m 1.7594 m 05/13/2014 9:35:00 AM 122 mmHg 80 mmHg 88 bpm 18 rpm 98 F 152 lbs 62 in 27.80 kg/m2 1.74 m2 03/12/2014 9:48:00 AM 124 mmHg 76 mmHg 82 bpm 18 rpm 98.1 F 148 lbs 62 in 27.0693 kg/m 1.7137 m 01/04/2014 9:46:00 AM 116 mmHg 74 mmHg 82 bpm 18 rpm 98.1 F 149 lbs 62 in 27.25 kg/m2 1.72 m2 11/10/2013 10:05:00 AM 108 mmHg 60 mmHg 83 bpm 18 rpm 96.2 F 147.4 lbs 62 in 26.9595 kg/m 1.7102 m 99 % 10/28/2013 9:34:00 AM 110 mmHg 80 mmHg 92 bpm 18 rpm 96.8 F 147 lbs 62 in 26.89 kg/m2 1.71 m2 08/18/2013 9:20:00 AM 124 mmHg 78 mmHg 85 bpm 18 rpm 96.9 F 144.125 lbs 62 in 26.3605 kg/m 1.6911 m 98 % 07/29/2013 9:06:00 AM 124 mmHg 64 mmHg 74 bpm 18 rpm 97.6 F 143.375 lbs 62 in 26.22 kg/m2 1.69 m2 98 % 04/28/2013 2:56:00 PM 116 mmHg 76 mmHg 85 bpm 16 rpm 96 F 147 lbs 62 in 26.8864 kg/m 1.7079 m 98 % 04/20/2013 10:41:00 AM 120 mmHg 80 mmHg 86 bpm 16 rpm 98.3 F 145 lbs 62 in 26.52 kg/m2 1.70 m2 94 % 03/19/2013 9:42:00 AM 110 mmHg 70 mmHg 76 bpm 16 rpm 97.8 F 137 lbs 62 in 25.0574 kg/m 1.6488 m 94 % 02/03/2013 2:30:00 PM 120 mmHg 76 mmHg 80 bpm 18 rpm 98.4 F 138 lbs 62 in 25.24 kg/m2 1.65 m2 10/14/2012 1:42:00 PM 114 mmHg 80 mmHg 78 bpm 18 rpm 98 F 152 lbs 62 in 27.8009 kg/m 1.7367 m 09/30/2012 1:33:00 PM 118 mmHg 74 mmHg 78 bpm 18 rpm 98 F 153 lbs 62 in 27.98 kg/m2 1.74 m2 08/28/2012 8:32:00 AM 98 mmHg 60 mmHg 78 bpm 18 rpm 98.2 F 140 lbs 62 in 25.6061 kg/m 1.6667 m 94 % 08/19/2012 3:35:00 PM 100 mmHg 72 mmHg 80 bpm 18 rpm 97.7 F 140 lbs 62 in 25.61 kg/m2 1.67 m2 08/13/2012 10:08:00 AM 80 mmHg 68 bpm 18 rpm 97.3 F 140 lbs 62 in 25.6061 kg/m 1.6667 m 07/17/2012 9:35:00 AM 108 mmHg 78 mmHg 70 bpm 18 rpm 97.2 F 143 lbs 62 in 26.15 kg/m2 1.68 m2 92 % 06/20/2012 8:41:00 AM 104 mmHg 70 mmHg 72 bpm 18 rpm 97.8 F 145 lbs 63 in 25.6853 kg/m 1.7098 m 05/21/2012 9:43:00 AM 102 mmHg 70 mmHg 80 bpm 20 rpm 97.6 F 148 lbs 63 in 26.22 kg/m2 1.73 m2 05/08/2012 9:01:00 AM 100 mmHg 62 mmHg 80 bpm 18 rpm 98 F 142 lbs 63 in 25.1539 kg/m 1.6921 m 04/14/2012 9:16:00 AM 110 mmHg 70 mmHg 80 bpm 18 rpm 97.6 F 144 lbs 63 in 25.51 kg/m2 1.70 m2 97 % 04/03/2012 1:49:00 PM 110 mmHg 64 mmHg 80 bpm 20 rpm 97.8 F 130 lbs 63 in 23.0282 kg/m 1.619 m 95 % 02/28/2012 1:58:00 PM 110 mmHg 70 mmHg 78 bpm 18 rpm 98.2 F 132 lbs 63 in 23.38 kg/m2 1.63 m2 01/31/2012 2:09:00 PM 102 mmHg 60 mmHg 72 bpm 18 rpm 97.8 F 128 lbs 63 in 22.6739 kg/m 1.6065 m 01/24/2012 4:02:00 PM 108 mmHg 64 mmHg 72 bpm 18 rpm 97.8 F 127 lbs 63 in 22.50 kg/m2 1.60 m2 01/21/2012 2:36:00 PM 88 mmHg 56 mmHg 60 bpm 16 rpm 97.8 F 127 lbs 63 in 22.4968 kg/m 1.6002 m 01/14/2012 1:30:00 PM 82 mmHg 60 mmHg 58 bpm 16 rpm 98 F 123 lbs 63 in 21.79 kg/m2 1.57 m2 01/11/2012 10:33:00 AM 90 mmHg 60 mmHg 69 bpm 18 rpm 97.3 F 126.125 lbs 63 in 22.3418 kg/m 1.5947 m 99 % 01/02/2012 9:02:00 AM 100 mmHg 68 mmHg 68 bpm 18 rpm 98.4 F 126 lbs 62 in 23.05 kg/m2 1.58 m2 12/25/2011 9:59:00 AM 100 mmHg 60 mmHg 65 bpm 18 rpm 97.1 F 131 lbs 62 in 23.96 kg/m 1.6122 m 99 % 11/30/2011 8:56:00 AM 98 mmHg 62 mmHg 68 bpm 16 rpm 98.1 F 133 lbs 62.5 in 23.94 kg/m2 1.63 m2 11/01/2011 10:45:00 AM 120 mmHg 62 mmHg 60 bpm 18 rpm 98 F 139 lbs 62.5 in 25.018 kg/m 1.6674 m 09/05/2011 10:10:00 AM 94 mmHg 62 mmHg 78 bpm 20 rpm 98.8 F 140 lbs 62.5 in 25.20 kg/m2 1.67 m2 04/23/2011 1:47:00 PM 86 mmHg 58 mmHg 80 bpm 20 rpm 96.6 F 147 lbs 62.5 in 26.4579 kg/m 1.7147 m 04/09/2011 10:33:00 AM 102 mmHg 68 mmHg 84 bpm 20 rpm 98.2 F 170 lbs 03/15/2011 10:51:00 AM 104 mmHg 74 mmHg 80 bpm 97.4 F 148 lbs 01/01/2011 9:29:00 AM 107 mmHg 74 mmHg 77 bpm 98 F 149 lbs 62 in 27.25 kg/m2 1.72 m2 12/22/2010 9:03:00 AM 100 mmHg 62 mmHg [...] Reviewed 06/15/2015 12:00 AM Rocephin 1 gram [facility]#[id number] Reviewed 09/04/2015 4:29 PM URINALYSIS AUTO W/O [...] 07/02/2016 12:00 AM Toradol 30 Mg Injection, [facility] Medicare Reviewed 07/02/2016 12:00 AM Phenergan 25mg Injection, [facility] Medicare Reviewed 07/18/2016 12:00 AM MRI [...] 12:00 AM Rocephin 1 gram Injection Reviewed 07/17/2012 12:00 AM COMPLETE CBC W/AUTO DIFF [...] CALLED: 04/09 1337 READ BACK BY: JULIANNE BOBYB SODIUM 127.0 mmol/LPOTASSIUM 4.10 mmol/LCHLORIDE 91.0 mmol/LCO2 [...] 12:54PM Chest congestion Jun 24 2017 12:54PM Payers Insurance Name Company Name Plan Name Plan Number Policy Number Policy Group Number Start Date [facility] [id number] N/A [facility] [id number] N/A [place] [employer] [place] [employer] [place] [id number] Monday, 2009 [place] 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 - [facility] [id number] N/A [facility] [id number] July [facility] [id number] N/A History of Encounters Visit Date Visit Type Provider 06/11/2017 Office visit Viet Ji MD 05/07/2017 Office visit Viet Ji MD 02/28/2017 Office visit Viet Ji MD 02/22/2017 Hospital Corby Carlin MD 02/16/2017 [facility] Corby Carlin MD 02/15/2017 Office visit [...] Viet Ji MD 07/02/2016 Office visit Viet iJ MD 06/28/2016 Nurse visit Viet Ji MD [...] Corby Carlin MD 04/20/2015 Office visit Viet iJ MD 03/29/2015 Office visit Viet Ji MD [...] 11/30/2011 Office visit Viet Ji MD 11/17/2011 [facility] Olegario Lay MD 11/16/2011 [facility] Olegario Lay MD 11/15/2011 [facility] Corby Carlin MD 11/01/2011 Office visit Viet Ji MD 09/05/2011 Office visit Viet Ji MD 04/23/2011 Office visit Viet Ji MD 04/15/2011 [facility] Olegario Lay MD 04/15/2011 [facility] Jenny Jenkins MD 04/14/2011 [facility] Olegario Lay MD 04/09/2011 Office visit Viet Ji MD 03/15/2011 Office visit Sheron Marsh APRN 01/01/2011 Office visit Star Gomez MD 12/22/2010 Office visit Viet Ji MD 11/23/2010 Office visit Viet Ji MD 10/06/2010 Office visit Niranjan Castro MD 08/07/2010 Office visit Viet Ji MD 07/07/2010 [facility] Homero Jarrett MD 07/06/2010 [facility] Homero Jarrett MD 07/05/2010 [facility] Corby Carlin MD 06/19/2010 Office visit Viet Ji MD 06/01/2010 Office visit Viet Ji MD 05/04/2010 Office visit Viet Ji MD 04/07/2010 Office visit Viet Ji MD 03/31/2010 [facility] Homero Jarrett MD 03/30/2010 [facility] Homero Jarrett MD 03/29/2010 Laboratory Homero Jarrett MD 03/29/2010 [facility] Homero Jarrett MD 03/28/2010 [facility] Homero Jarrett MD 03/26/2010 [facility] Homero Jarrett MD 03/25/2010 [facility] Homero Jarrett MD 03/21/2010 Office visit Ray Gutiérrez MD 03/07/2010 Office visit Viet Ji MD 02/28/2010 [facility] Homero Jarrett MD 02/27/2010 [facility] Homero Jarrett MD 02/26/2010 [facility] Niranjan Castro MD 02/25/2010 [facility] Niranjan Castro MD 02/24/2010 [facility] Homero Jarrett MD 02/23/2010 Laboratory Homero Jarrett MD 02/15/2010 Office visit Ray Gutiérrez MD 02/06/2010 Office visit Viet Ji MD 02/02/2010 Office visit Ray Gutiérrez MD 01/22/2010 [facility] Homero Jarrett MD 01/21/2010 [facility] Homero Jarrett MD 01/20/2010 [facility] Homero Jarrett MD 01/19/2010 [facility] Homero Jarrett MD 01/17/2010 Office visit Viet Ji MD 01/10/2010 [facility] Homero Jarrett MD 01/08/2010 [facility] Lillie Licea MD 12/27/2009 Office visit Viet Ji MD 08/10/2009 Office visit Viet Ji MD 06/22/2009 Office visit Viet Ji MD 03/30/2009 Laboratory Viet Ji MD
[2018-07-24 21:43] LABS: BASOPHILS % (AUTO) 0 % (0-10); EOSINOPHILS # (AUTO) 0.1 10^3/uL (0.0-0.3); EOSINOPHILS % (AUTO) 1 % (0-10); HEMATOCRIT 40 % (35-52); HEMOGLOBIN 12.2 G/DL (11.5-16.0); LYMPHOCYTES # (AUTO) 3.5 X 10^3 (1.0-4.0); LYMPHOCYTES % (AUTO) 34 % (12-44); MEAN CORPUSCULAR HEMOGLOBIN 24 PG (25-34); MEAN CORPUSCULAR HGB CONC 30 G/DL (32-36); MEAN CORPUSCULAR VOLUME 79 FL (80-99); MEAN PLATELET VOLUME 9.6 FL (7.4-10.4); MONOCYTES % (AUTO) 10 % (0-12); NEUTROPHILS # (AUTO) 5.8 X 10^3 (1.8-7.8); NEUTROPHILS % (AUTO) 55 % (42-75); PLATELET COUNT 589 10^3/uL (130-400); RED BLOOD COUNT 5.09 10^6/uL (4.35-5.85); RED CELL DISTRIBUTION WIDTH 20.9 % (10.0-14.5); WHITE BLOOD COUNT 10.4 10^3/uL (4.3-11.0)
[2018-07-24 21:44] LABS: BILIRUBIN,URINE NEGATIVE (NEGATIVE); CLARITY,URINE CLEAR; COLOR,URINE YELLOW; GLUCOSE, URINE (UA) NEGATIVE (NEGATIVE); KETONES,URINE NEGATIVE (NEGATIVE); LEUKOCYTE ESTERASE ,URINE 2+ (NEGATIVE); NITRITE,URINE NEGATIVE (NEGATIVE); PH,URINE 7 (5-9); PROTEIN,URINE NEGATIVE (NEGATIVE); UROBILINOGEN,URINE NORMAL (NORMAL)
[2018-07-24] MEDS ORDERED: HYOSCYAMINE 0.125 MG (LEVSIN) TAB SL ONE (21:45)
[2018-07-24 21:49] LABS: INR 0.9 (0.8-1.4); PROTHROMBIN TIME PATIENT 12.5 SEC (12.2-14.7)
[2018-07-24 21:55] LABS: YEAST,URINE FEW /HPF
[2018-07-24 21:59] LABS: AMPHETAMINE SCREEN, URINE NEGATIVE (NEGATIVE); BARBITURATE SCREEN URINE NEGATIVE (NEGATIVE); BENZODIAZEPINES SCREEN URINE NEGATIVE (NEGATIVE); CANNABINOID SCREEN, URINE NEGATIVE (NEGATIVE); COCAINE SCREEN URINE NEGATIVE (NEGATIVE); METHADONE STAT NEGATIVE (NEGATIVE); METHAMPHETAMINE SCREEN URINE S NEGATIVE (NEGATIVE); OPIATE SCREEN URINE POSITIVE (NEGATIVE); OXYCODONE STAT NEGATIVE (NEGATIVE); PROPOXYPHENE STAT NEGATIVE (NEGATIVE); TRICYCLIC ANTIDEPRESSANTS SCRE NEGATIVE (NEGATIVE)
--- OUTSIDE RECORDS SUMMARY | 2018-07-24 22:15 | XMS REPORT ---
Demographics Address [address] [place] [address] Preferred Language Hebrew Marital Status Catholic Affiliation Unknown Race White Ethnic Group Not or Author Author Viet Ji [facility] Address [address] [place], [place] [id number] Care Team Providers Care Clearing Inspector Name Role Phone Viet Ji PCP Viet [...] metabolic panel 07/29/2013 12:00 AM Urine Culture, [place] Count 07/29/2013 12:00 AM diabetic check copd, [...] as needed. Dilaudid 4 mg oral tablet 05/21/2017 take 1 tablet every 8hr as needed hydrocodone-acetaminophen 10-325 mg oral tablet 05/21/2017 06/20/2017 take 1 tablet by oral route every 6 hours as needed for pain for 30 days Name Start Date Expiration Date SIG Comments Augmentin 875-125 mg oral tablet 06/22/2009 07/06/2009 take 1 tablet by oral route every 12 hours for 14 days diazepam 5 mg oral tablet 08/03/2009 08/18/2009 TAKE 1 TABLET BY MOUTH EVERY 8 HOURS NEEDED [place] 10-325 mg oral tablet 10/31/2009 01/29/2010 take [...] 1 TABLET BY MOUTH TWICE DAILY ERGOCALCIFEROL 30716 UNIT CAPS 09/07/2015 06/14/2016 Take 1 capsule [...] 06/15/2015 12:00 AM Rocephin 1 gram [facility]#[id number] Reviewed 09/04/2015 4:29 PM URINALYSIS AUTO W/O [...] 12:00 AM Toradol 30 Mg Injection, [facility] Medicare Reviewed 07/02/2016 12:00 AM Phenergan 25mg Injection, [facility] Medicare Reviewed 07/18/2016 12:00 [...] 12:00 AM ASSAY DIPROPYLACETIC ACD TOT Returned 07/17/2012 12:00 AM COMPLETE CBC W/AUTO [...] mg/dLDATE/TIME CALLED: 05/1100 READ BACK BY: KINDRA MARES/MITCHLE SODIUM 130.0 mmol/LPOTASSIUM 3.90 mmol/ LCHLORIDE 94.0 [...] 2017 10:12AM Pneumonia Jun 11 2017 10:12AM Payers Insurance Name Company Name Plan Name Plan Number Policy Number Policy Group Number Start Date [facility] [id number] N/A 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 - C [id number] July [facility] [id number] N/A History of Encounters Visit Date Visit Type Provider 06/11/2017 Office visit Viet Ji MD 05/07/2017 Office visit Viet Ji MD 02/28/2017 Office visit Viet Ji MD 02/22/2017 Hospital Corby Carlin MD 02/16/2017 [facility] Corby Carlin MD 02/15/2017 Office visit [...] MD 11/17/2011 Hospital Olegario Lay MD 11/16/2011 Hospital Olegario Lay MD 11/15/2011 [facility] Corby Carlin MD 11/01/2011 Office visit Viet Ji MD 09/05/2011 Office visit Viet Ji MD 04/23/2011 Office visit Viet Ji MD 04/15/2011 Hospital Olegario Lay MD 04/15/2011 [facility] Jenny Jenkins MD 04/14/2011 Hospital Olegario Lay MD 04/09/2011 Office visit Viet Ji MD 03/15/2011 Office visit Sheron Marsh APRN 01/01/2011 Office visit Star Gomez MD 12/22/2010 Office visit Viet Ji MD 11/23/2010 Office visit Viet Ji MD 10/06/2010 Office visit Niranjan Castro MD 08/07/2010 Office visit Viet Ji MD 07/07/2010 [facility] Homero Jarrett MD 07/06/2010 [facility] Homero Jarrett MD 07/05/2010 [facility] Corby Carlin MD 06/19/2010 Office visit Viet Ji MD 06/01/2010 Office visit Viet Ji MD 05/04/2010 Office visit Viet Ji MD 04/07/2010 Office visit Viet Ji MD 03/31/2010 [facility] Homero Jarrett MD 03/30/2010 [facility] Homero Jarrett MD 03/29/2010 Laboratory Homero Jarrett MD 03/29/2010 [facility] Homero Jarrett MD 03/28/2010 [facility] Homero Jarrett MD 03/26/2010 [facility] Homero Jarrett MD 03/25/2010 [facility] Homero Jarrett MD 03/21/2010 Office visit Ray Gutiérrez MD 03/07/2010 Office visit Viet Ji MD 02/28/2010 [facility] Homero Jarrett MD 02/27/2010 [facility] Homero Jarrett MD 02/26/2010 [facility] Niranjan Castro MD 02/25/2010 [facility] Niranjan Castro MD 02/24/2010 [facility] Homero Jarrett MD 02/23/2010 Laboratory Homero Jarrett MD 02/15/2010 Office visit Ray Gutiérrez MD 02/06/2010 Office visit Viet Ji MD 02/02/2010 Office visit Rya Gutiérrez MD 01/22/2010 [facility] Homero Jarrett MD 01/21/2010 [facility] Homero Jarrett MD 01/20/2010 [facility] Homero Jarrett MD 01/19/2010 [facility] Homero Jarrett MD 01/17/2010 Office visit Viet Ji MD 01/10/2010 [facility] Homero Jarrett MD 01/08/2010 [facility] Lillie Licea MD 12/27/2009 Office visit Viet Ji MD 08/10/2009 Office visit Viet Ji MD 06/22/2009 Office visit Viet Ji MD 03/30/2009 Laboratory Viet Ji MD
[2018-07-24 22:16] LABS: ALANINE AMINOTRANSFERASE 9 U/L (0-55); ALBUMIN 3.6 GM/DL (3.2-4.5); ALKALINE PHOSPHATASE 78 U/L (40-136); AMYLASE 42 U/L (25-125); BILIRUBIN,TOTAL 0.2 MG/DL (0.1-1.0); BUN/CREATININE RATIO 13; CALCIUM 9.3 MG/DL (8.5-10.1); CARBON DIOXIDE 30 MMOL/L (21-32); CHLORIDE 96 MMOL/L (98-107); CREATINE KINASE 104 U/L (29-168); CREATININE SERUM 1.19 MG/DL (0.60-1.30); GFR ESTIMATED 47; LIPASE 39 U/L (8-78); MAGNESIUM 2.1 MG/DL (1.8-2.4); POTASSIUM 3.9 MMOL/L (3.6-5.0); SODIUM 138 MMOL/L (135-145); TOTAL PROTEIN 6.7 GM/DL (6.4-8.2)
--- OUTSIDE RECORDS SUMMARY | 2018-07-24 22:20 | XMS REPORT ---
Demographics Address [address] [place] [address] Preferred Language Lithuanian Marital Status Christian Affiliation Unknown Race White Ethnic Group Not or Author Author Viet Ji [facility] Address [address] [place], [place] [id number] Care Team Providers Care Paring Machine Operator Name Role Phone Viet Ji PCP Viet [...] metabolic panel 07/29/2013 12:00 AM Urine Culture, [place] Count 07/29/2013 12:00 AM diabetic check copd, [...] TABLET BY MOUTH EVERY 8 HOURS NEEDED [place] 10-325 mg oral tablet 10/31/2009 01/29/2010 take [...] 1 TABLET BY MOUTH TWICE DAILY ERGOCALCIFEROL 93430 UNIT CAPS 09/07/2015 06/14/2016 Take 1 capsule [...] Reviewed 06/15/2015 12:00 AM Rocephin 1 gram [facility]#[id number] Reviewed 09/04/2015 4:29 PM URINALYSIS AUTO W/O [...] 07/02/2016 12:00 AM Toradol 30 Mg Injection, [facility] Medicare Reviewed 07/02/2016 12:00 AM Phenergan 25mg Injection, [facility] Medicare Reviewed 07/18/2016 12:00 AM MRI NECK [...] Policy Number Policy Group Number Start Date [facility] - [facility] [id number] N/A [facility] - [facility] [id number] N/A [place] Medical [place] [employer] [place] [id number] Monday, 2009 [place] [employer]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 - [facility] [id number] N/A [facility] - [facility] [id number] July [facility] [id number] N/A History of Encounters Visit Date Visit Type Provider 06/11/2017 Office visit Viet Ji MD 05/07/2017 Office visit Viet Ji MD 02/28/2017 Office visit Viet Ji MD 02/22/2017 Hospital Corby Carlin MD 02/16/2017 [facility] Corby Carlin MD 02/15/2017 Office visit [...] Office visit Viet Ji MD 08/18/2015 Hospital Cobry Carlin MD 07/12/2015 Office visit Viet Ji [...] Olegario Lay MD 04/20/2013 Office visit Viet iJ MD 03/19/2013 Office visit Viet Ji MD [...] 11/30/2011 Office visit Viet Ji MD 11/17/2011 [facility] Olegario Lay MD 11/16/2011 [facility] Olegario Lay MD 11/15/2011 [facility] Corby Carlin MD 11/01/2011 Office visit Viet Ji MD 09/05/2011 Office visit Viet Ji MD 04/23/2011 Office visit Viet Ji MD 04/15/2011 [facility] Olegario Lay MD 04/15/2011 [facility] Jenny Jenkins MD 04/14/2011 [facility] Olegario Lay MD 04/09/2011 Office visit Viet Ji MD 03/15/2011 Office visit Sheron Marsh APRN 01/01/2011 Office visit Star Gomez MD 12/22/2010 Office visit Viet Ji MD 11/23/2010 Office visit Viet Ji MD 10/06/2010 Office visit Niranjan Castro MD 08/07/2010 Office visit Viet Ji MD 07/07/2010 [facility] Homero Jarrett MD 07/06/2010 [facility] Homero Jarrett MD 07/05/2010 [facility] Corby Carlin MD 06/19/2010 Office visit Viet Ji MD 06/01/2010 Office visit Viet Ji MD 05/04/2010 Office visit Viet Ji MD 04/07/2010 Office visit Viet Ji MD 03/31/2010 [facility] Homero Jarrett MD 03/30/2010 [facility] Homero Jarrett MD 03/29/2010 Laboratory Homero Jarrett MD 03/29/2010 [facility] Homero Jarrett MD 03/28/2010 [facility] Homero Jarrett MD 03/26/2010 [facility] Homero Jarrett MD 03/25/2010 [facility] Homero Jarrett MD 03/21/2010 Office visit Ray Gutiérrez MD 03/07/2010 Office visit Viet Ji MD 02/28/2010 [facility] Homero Jarrett MD 02/27/2010 [facility] Homero Jarrett MD 02/26/2010 [facility] Niranjan Castro MD 02/25/2010 [facility] Niranjan Castro MD 02/24/2010 [facility] Homero Jarrett MD 02/23/2010 Laboratory Homero Jarrett MD 02/15/2010 Office visit Ray Gutiérrez MD 02/06/2010 Office visit Viet Ji MD 02/02/2010 Office visit Ray Gutiérrez MD 01/22/2010 [facility] Homero Jarrett MD 01/21/2010 [facility] Homero Jarrett MD 01/20/2010 [facility] Homero Jarrett MD 01/19/2010 [facility] Homero Jarrett MD 01/17/2010 Office visit Viet Ji MD 01/10/2010 [facility] Homero Jarrett MD 01/08/2010 [facility] Lillie Licea MD 12/27/2009 Office visit Viet Ji MD 08/10/2009 Office visit Viet Ji MD 06/22/2009 Office visit Viet Ji MD 03/30/2009 Laboratory Viet Ji MD
[2018-07-24 22:22] LABS: GLUCOSE 44 MG/DL (70-105)
[2018-07-24 22:23] LABS: ACETAMINOPHEN < 10 UG/ML (10-30); VALPROIC ACID 65.8 UG/ML (50.0-100.0)
--- OUTSIDE RECORDS SUMMARY | 2018-07-24 22:40 | XMS REPORT ---
Demographics Address [address] [place] [address] Preferred Language Bengali Marital Status Latter-Day Affiliation Unknown Race White Ethnic Group Not or Author Author Viet Ji [facility] Address [address] [place], [place] [id number] Care Team Providers Care Finishing Area Supervisor Name Role Phone Viet Ji PCP Viet [...] metabolic panel 07/29/2013 12:00 AM Urine Culture, [place] Count 07/29/2013 12:00 AM diabetic check copd, [...] MOUTH EVERY SIX HOURS NEEDED FOR PAIN hydrocodone-acetaminophen 7.5-325 mg oral tablet 09/30/2013 TAKE [...] 02/25/2014 USE 17 GRAMS EVERY MORNING DIRECTED Lyrica 75 mg oral capsule 03/12/2014 TAKE 1 CAPSULE BY MOUTH TWICE DAILY alprazolam 1 mg oral tablet 03/12/2014 TAKE 1 TABLET BY MOUTH EVERY 8 HOURS NEEDED hydrocodone-acetaminophen 7.5-325 mg oral tablet 04/01/2014 TAKE 1 TABLET BY MOUTH EVERY SIX HOURS NEEDED FOR PAIN furosemide 40 mg oral tablet 04/22/2014 TAKE 1 TABLET BY MOUTH ONCE DAILY clopidogrel 75 mg oral tablet 07/12/2014 TAKE ONE TABLET BY MOUTH DAILY lansoprazole 30 mg oral capsule,delayed release(DR/EC) [...] ONCE DAILY clopidogrel 75 mg oral tablet 06/30/2015 TAKE ONE TABLET BY MOUTH DAILY TRUEBALANCE STRIPS 09/07/2015 USE DIRECTED Voltaren 1 % topical gel 10/04/2015 APPLY 4 GMS TO THE AFFECTED AREA EVERY DAY Topamax 200 mg oral tablet take 1 tablet (200 mg) by oral route 2 times per day topiramate 200 mg oral tablet 01/17/2016 TAKE [...] take 1 tablet every 8hr prn nausea Rozerem 8 mg oral tablet 12/13/2016 TAKE 1 TABLET BY MOUTH AT BEDTIME Rozerem 8 mg oral tablet 12/13/2016 TAKE 1 TABLET BY MOUTH AT BEDTIME fluticasone 50 mcg/actuation nasal spray,suspension 02/18/2017 spray 2 sprays (100 mcg) in each nostril by intranasal route once daily as needed polyethylene glycol 3350 17 gram/dose oral powder 02/18/2017 USE 17 GRAMS EVERY MORNING DIRECTED Rozerem 8 mg oral tablet 02/18/2017 TAKE 1 TABLET BY MOUTH AT BEDTIME Depakote 500 mg oral tablet,delayed release (DR/EC) take 1 tablet (500 mg) by oral route 2 times per day clopidogrel 75 mg oral tablet 04/11/2017 03/07/2018 TAKE ONE TABLET BY MOUTH DAILY rosuvastatin 20 mg oral tablet 05/15/2017 05/10/2018 TAKE 1 TABLET BY MOUTH ONCE EVERY DAY Tousina SoloStar 300 unit/mL (1.5 mL) subcutaneous insulin pen inject by subcutaneous route as per insulin protocol Amitiza 24 mcg oral capsule 07/10/2017 TAKE 1 CAPSULE BY MOUTH TWICE DAILY WITH FOOD AND WATER Vitamin D2 50,000 unit oral capsule 08/15/2017 01/27/2018 TAKE 1 CAPSULE BY MOUTH ONCE WEEKLY FOR 8 WEEKS omega-3 acid ethyl esters 1 gram oral capsule 09/16/2017 01/14/2018 TAKE 2 CAPSULES BY MOUTH TWICE DAILY topiramate 200 mg oral tablet 09/16/2017 02/13/2018 TAKE 1 TABLET BY MOUTH TWICE DAILY Tessalon Perles 100 mg oral capsule 09/17/2017 [...] 1 TABLET BY MOUTH FOUR TIMES DAILY benzonatate 100 mg oral capsule 12/05/2017 TAKE 1 CAPSULE BY MOUTH THREE TIMES DAILY NEEDED FOR COUGH potassium chloride 10 mEq oral tablet extended release 12/05/2017 TAKE 3 TABLETS BY MOUTH TWICE DAILY Klonopin 1 mg oral tablet 12/10/2017 take 1 tablet every 8hr as needed. Dilaudid 4 mg oral tablet 12/17/2017 take 1 tablet every 8hr as needed hydrocodone-acetaminophen 10-325 mg oral tablet 12/17/2017 01/16/2018 take 1 tablet by oral route every 6 hours as needed for pain for 30 days promethazine 25 mg oral tablet 01/02/2018 TAKE 1 TABLET BY MOUTH EVERY SIX HOURS NEEDED FOR NAUSEA amitriptyline 10 mg oral tablet 01/06/2018 TAKE 1 TABLET BY MOUTH DAILY AT BEDTIME Name Start Date Expiration Date SIG Comments Augmentin 875-125 mg oral tablet 06/22/2009 07/06/2009 take 1 tablet by oral route every 12 hours for 14 days diazepam 5 mg oral tablet 08/03/2009 08/18/2009 TAKE 1 TABLET BY MOUTH EVERY 8 HOURS NEEDED [place] 10-325 mg oral tablet 10/31/2009 01/29/2010 take [...] syringe-needle U-100 1 mL 30 gauge x /16 miscellaneous syringe 201301/29/2014 USE DIRECTED ASCENSIA CONTOUR [...] 1 TABLET BY MOUTH THREE TIMES DAILY furosemide 40 mg oral tablet 04/15/2017 [...] 1 TABLET BY MOUTH FOUR TIMES DAILY Ambien 10 mg oral tablet 08/15/2017 12/13/2017 take 1 tablet (10 mg) by oral route once daily at bedtime for 30 days Cipro 500 mg oral tablet 12/25/2017 01/01/2018 [...] 1 TABLET BY MOUTH TWICE DAILY ERGOCALCIFEROL 96010 UNIT CAPS 09/07/2015 06/14/2016 Take 1 capsule [...] HC BMI BSA BMI Percentile O2 Sat(%) 01/07/2018 10:34:00 AM 138 mmHg 74 mmHg [...] rpm 98.4 F 148 lbs 63 in .2168 kg/m 1.7274 m Social History Name Description [...] Reviewed 06/15/2015 12:00 AM Rocephin 1 gram [facility]#[id number] Reviewed 09/04/2015 4:29 PM URINALYSIS AUTO W/O [...] 07/02/2016 12:00 AM Toradol 30 Mg Injection, [facility] Medicare Reviewed 07/02/2016 12:00 AM Phenergan 25mg Injection, [facility] Medicare Reviewed 07/18/2016 12:00 AM MRI [...] 10:37AM Ventral hernia Jan 07 2018 10:37AM Payers Insurance Name Company Name Plan Name Plan Number Policy Number Policy Group Number Start Date [facility] - [facility] [id number] N/A [facility] - [facility] [id number] N/A [place] Medical [place] Pro[place] [id number] Monday, 2009 [place]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 - [facility]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 - [facility] [id number] N/A [facility] - [facility] [id number] July [facility] [id number] N/A History of Encounters Visit Date Visit Type Provider 01/07/2018 Office visit Viet Ji MD 12/17/2017 [...] visit Viet Ji MD 12/24/2014 Office visit Veit Ji MD 10/12/2014 Office visit Viet Ji [...] MD 11/17/2011 Hospital Olegario Lay MD 11/16/2011 [facility] Olegario Lay MD 11/15/2011 [facility] Corby Carlin MD 11/01/2011 Office visit Viet Ji MD 09/05/2011 Office visit Viet Ji MD 04/23/2011 Office visit Viet Ji MD 04/15/2011 [facility] Olegario Lay MD 04/15/2011 [facility] Jenny Jenkins MD 04/14/2011 [facility] Olegario Lay MD 04/09/2011 Office visit Viet Ji MD 03/15/2011 Office visit Sheron Marsh APRN 01/01/2011 Office visit Star Gomez MD 12/22/2010 Office visit Viet Ji MD 11/23/2010 Office visit Viet Ji MD 10/06/2010 Office visit Niranjan Castro MD 08/07/2010 Office visit Viet Ji MD 07/07/2010 [facility] Homero Jarrett MD 07/06/2010 [facility] Homero Jarrett MD 07/05/2010 [facility] Corby Carlin MD 06/19/2010 Office visit Viet Ji MD 06/01/2010 Office visit Viet Ji MD 05/04/2010 Office visit Viet Ji MD 04/07/2010 Office visit Viet Ji MD 03/31/2010 [facility] Homero Jarrett MD 03/30/2010 [facility] Homero Jarrett MD 03/29/2010 Laboratory Homero Jarrett MD 03/29/2010 [facility] Homero Jarrett MD 03/28/2010 [facility] Homero Jarrett MD 03/26/2010 Hospital Homero Jarrett MD 03/25/2010 [facility] Homero Jarrett MD 03/21/2010 Office visit Ray Gutiérrez MD 03/07/2010 Office visit Viet Ji MD 02/28/2010 [facility] Homero Jarrett MD 02/27/2010 [facility] Homero Jarrett MD 02/26/2010 [facility] Niranjan Castro MD 02/25/2010 [facility] Niranjan Castro MD 02/24/2010 [facility] Homero Jarrett MD 02/23/2010 Laboratory Homero Jarrett MD 02/15/2010 Office visit Ray Gutiérrez MD 02/06/2010 Office visit Viet Ji MD 02/02/2010 Office visit Ray Gutiérrez MD 01/22/2010 [facility] Homero Jarrett MD 01/21/2010 [facility] Homero Jarrett MD 01/20/2010 [facility] Homero Jarrett MD 01/19/2010 [facility] Homero Jarrett MD 01/17/2010 Office visit Viet Ji MD 01/10/2010 [facility] Homero Jarrett MD 01/08/2010 [facility] Lillie Licea MD 12/27/2009 Office visit Viet Ji MD 08/10/2009 Office visit Viet Ji MD 06/22/2009 Office visit Viet Ji MD 03/30/2009 Laboratory Viet Ji MD
--- OUTSIDE RECORDS SUMMARY | 2018-07-24 22:43 | XMS REPORT ---
Demographics Address [address] [place] [address] Preferred Language Hebrew Marital Status Scientologist Affiliation Unknown Race White Ethnic Group Not or Author Author Viet Ji [facility] Address [address] [place], [place] [id number] Care Team Providers Care Environmental Technical Officer Name Role Phone Viet Ji PCP Viet [...] 01/17/2017 12:00 AM BMP 04/10/2012 12:00 AM Acute abdomen x-ray series 08/06/2017 12:00 AM BMP 08/19/2012 12:00 AM CBC With Auto Differential 08/19/2012 12:00 AM Abdominal radiographs, complete (including decubitus/erect views) 2013 12:00 AM Comprehensive metabolic panel 07/29/2013 12:00 AM Urine Culture, [place] Count 07/29/2013 12:00 AM diabetic check copd, [...] per day topiramate 200 mg oral tablet 04/11/2017 09/08/2017 TAKE 1 TABLET BY MOUTH TWICE DAILY clopidogrel 75 mg oral tablet 04/11/2017 03/07/2018 TAKE ONE TABLET BY MOUTH DAILY omega-3 acid ethyl esters 1 gram oral capsule 05/15/2017 09/12/2017 TAKE 2 CAPSULES BY MOUTH TWICE DAILY rosuvastatin 20 mg oral tablet 05/15/2017 05/10/2018 TAKE 1 TABLET BY MOUTH ONCE EVERY DAY Shyam PattersonoStar 300 unit/mL (1.5 mL) subcutaneous insulin pen inject by subcutaneous route as per insulin protocol Amitiza 24 mcg oral capsule 07/10/2017 TAKE 1 CAPSULE BY MOUTH TWICE DAILY WITH FOOD AND WATER Klonopin 1 mg oral tablet 07/11/2017 take 1 tablet every 8hr as needed. Dilaudid 4 mg oral tablet 07/17/2017 take 1 tablet every 8hr as needed hydrocodone-acetaminophen 10-325 mg oral tablet 07/17/2017 08/16/2017 take 1 tablet by oral route every 6 hours as needed for pain for 30 days amitriptyline 10 mg oral tablet 08/06/2017 take 1 tablet (10 mg) by oral route once daily at bedtime for 30 days Name Start Date Expiration Date SIG Comments Augmentin 875-125 mg oral tablet 06/22/2009 07/06/2009 take 1 tablet by oral route every 12 hours for 14 days diazepam 5 mg oral tablet 08/03/2009 08/18/2009 TAKE 1 TABLET BY MOUTH EVERY 8 HOURS NEEDED [place] 10-325 mg oral tablet 10/31/2009 01/29/2010 take [...] 30 days lansoprazole 30 mg oral capsule,delayed release(/EC) 10/22/2012 11/21/2012 TAKE 1 CAPSULE BY MOUTH EVERY DAY hydrocodone-acetaminophen 7.5-500 mg oral tablet 12/30/2012 01/29/2013 TAKE 1 TABLET BY MOUTH EVERY 6 HOURS NEEDED FOR PAIN Lancets,Thin 23 gauge miscellaneous misc 02/10/2013 03/12/2013 DIRECTED fenofibrate nanocrystallized 145 mg oral tablet 03/02/2013 04/01/2013 TAKE 1 TABLET BY MOUTH EVERY DAY Pancreaze 4,200-10,000- 17,500 unit oral capsule,delayed release(/EC) 201205/02/2013 TAKE ONE CAPSULE BY MOUTH THREE [...] 2 times per day for 7 days gabapentin 800 mg oral tablet 03/21/2017 07/19/2017 TAKE 1 TABLET BY MOUTH THREE TIMES DAILY Ambien 10 mg oral tablet 03/22/2017 07/20/2017 take 1 tablet (10 mg) by oral route once daily at bedtime for 30 days furosemide 40 mg oral tablet 04/15/2017 [...] 1 TABLET BY MOUTH TWICE DAILY ERGOCALCIFEROL 84915 UNIT CAPS 09/07/2015 06/14/2016 Take 1 capsule [...] HC BMI BSA BMI Percentile O2 Sat(%) 08/06/2017 3:23:00 PM 120 mmHg 78 mmHg [...] Reviewed 06/15/2015 12:00 AM Rocephin 1 gram [facility]#[id number] Reviewed 09/04/2015 4:29 PM URINALYSIS AUTO W/O [...] 07/02/2016 12:00 AM Toradol 30 Mg Injection, [facility] Medicare Reviewed 07/02/2016 12:00 AM Phenergan 25mg Injection, [facility] Medicare Reviewed 07/18/2016 12:00 AM MRI NECK [...] 38AM Epigastric pain Aug 06 2017 3:25PM Payers Insurance Name Company Name Plan Name Plan Number Policy Number Policy Group Number Start Date [facility] [id number] N/A [facility] Plan - [facility] [id number] N/A [place] Program [place] Pro[place] [id number] Monday, 2009 [place] [facility] Pro[facility] [id number] N[facility] [id number] July [facility] [id number] N/A History of Encounters Visit Date Visit Type Provider 08/06/2017 Office visit Viet Ji MD 07/18/2017 [...] 11/30/2011 Office visit Viet Ji MD 11/17/2011 [facility] Olegario Lay MD 11/16/2011 [facility] Olegario Lay MD 11/15/2011 [facility] Corby Carlin MD 11/01/2011 Office visit Viet Ji MD 09/05/2011 Office visit Viet Ji MD 04/23/2011 Office visit Viet Ji MD 04/15/2011 [facility] Olegario Lay MD 04/15/2011 [facility] Jenny Jenkins MD 04/14/2011 [facility] Olegario Lay MD 04/09/2011 Office visit Viet Ji MD 03/15/2011 Office visit Sheron Marsh APRN 01/01/2011 Office visit Star Gomez MD 12/22/2010 Office visit Viet Ji MD 11/23/2010 Office visit Viet Ji MD 10/06/2010 Office visit Niranjan Castro MD 08/07/2010 Office visit Viet Ji MD 07/07/2010 [facility] Homero Jarrett MD 07/06/2010 [facility] Homero Jarrett MD 07/05/2010 [facility] Corby Carlin MD 06/19/2010 Office visit Viet Ji MD 06/01/2010 Office visit Viet Ji MD 05/04/2010 Office visit Viet Ji MD 04/07/2010 Office visit Viet Ji MD 03/31/2010 [facility] Homero Jarrett MD 03/30/2010 [facility] Homero Jarrett MD 03/29/2010 Laboratory Homero Jarrett MD 03/29/2010 [facility] Homero Jarrett MD 03/28/2010 [facility] Homero Jarrett MD 03/26/2010 [facility] Homero Jarrett MD 03/25/2010 [facility] Homero Jarrett MD 03/21/2010 Office visit Ray uGtiérrez MD 03/07/2010 Office visit Viet Ji MD 02/28/2010 [facility] Homero Jarrett MD 02/27/2010 [facility] Homero Jarrett MD 02/26/2010 [facility] Niranjan Castro MD 02/25/2010 [facility] Niranjan Castro MD 02/24/2010 [facility] Homero Jarrett MD 02/23/2010 Laboratory Homero Jarrett MD 02/15/2010 Office visit Ray Gutiérrez MD 02/06/2010 Office visit Viet Ji MD 02/02/2010 Office visit Ray Gutiérrez MD 01/22/2010 [facility] Homero Jarrett MD 01/21/2010 [facility] Homero Jarrett MD 01/20/2010 [facility] Homero Jarrett MD 01/19/2010 [facility] Homero Jarrett MD 01/17/2010 Office visit Viet Ji MD 01/10/2010 [facility] Homero Jarrett MD 01/08/2010 [facility] Lillie Licea MD 12/27/2009 Office visit Viet Ji MD 08/10/2009 Office visit Viet Ji MD 06/22/2009 Office visit Viet Ji MD 03/30/2009 Laboratory Viet Ji MD
[2018-07-24] MEDS ORDERED: DEXTROSE 50% 50 ML (IMS) SYR IV ONE (22:45)
--- OUTSIDE RECORDS SUMMARY | 2018-07-24 22:46 | XMS REPORT ---
Demographics Address [address] [place] [address] Preferred Language Maltese Marital Status Mormonism Affiliation Unknown Race White Ethnic Group Not or Author Author [facility] Address [address] [place], [place] [phone] Care Team Providers Care Supervisor Nuclear Medicine Name Role Phone Viet Ji PCP Viet [...] CBC With Auto Differential 08/19/2012 12:00 AM Chest x-ray, PA and lateral 10/14/2017 12:00 AM Abdominal radiographs, complete (including decubitus/erect views) 2013 12:00 AM Comprehensive metabolic panel 07/29/2013 12:00 AM Urine Culture, [place] Count 07/29/2013 12:00 AM diabetic check copd, [...] take 1 tablet every 8hr prn nausea duloxetine 30 mg oral capsule,delayed release(DR/EC) 11/19/2016 [...] TAKE 3 TABLETS BY MOUTH TWICE DAILY diclofenac sodium 1 % topical gel 01/21/2017 [...] 1 TABLET BY MOUTH ONCE EVERY DAY Toualxeandero SoloStar 300 unit/mL (1.5 mL) subcutaneous insulin pen inject by subcutaneous route as per insulin protocol Amitiza 24 mcg oral capsule 07/10/2017 TAKE 1 CAPSULE BY MOUTH TWICE DAILY WITH FOOD AND WATER amitriptyline 10 mg oral tablet 08/06/2017 take 1 tablet (10 mg) by oral route once daily at bedtime for 30 days metoclopramide HCl 10 mg oral tablet 08/15/2017 12/13/2017 TAKE 1 TABLET BY MOUTH FOUR TIMES DAILY Vitamin D2 50,000 unit oral capsule 08/15/2017 01/27/2018 TAKE 1 CAPSULE BY MOUTH ONCE WEEKLY FOR 8 WEEKS Ambien 10 mg oral tablet 08/15/2017 12/13/2017 take 1 tablet (10 mg) by oral route once daily at bedtime for 30 days omega-3 acid ethyl esters 1 gram oral capsule 09/16/2017 01/14/2018 TAKE 2 CAPSULES BY MOUTH TWICE DAILY topiramate 200 mg oral tablet 09/16/2017 02/13/2018 TAKE 1 TABLET BY MOUTH TWICE DAILY Klonopin 1 mg oral tablet 09/16/2017 take 1 tablet every 8hr as needed. Tessalon Perles 100 mg oral capsule 09/17/2017 [...] INHALE ONE PUFF BY MOUTH ONCE DAILY Dilaudid 4 mg oral tablet 10/14/2017 take 1 tablet every 8hr as needed hydrocodone-acetaminophen 10-325 mg oral tablet 10/14/2017 11/13/2017 take 1 tablet by oral route every 6 hours as needed for pain for 30 days Name Start Date Expiration Date SIG Comments Augmentin 875-125 mg oral tablet 06/22/2009 07/06/2009 take 1 tablet by oral route every 12 hours for 14 days diazepam 5 mg oral tablet 08/03/2009 08/18/2009 TAKE 1 TABLET BY MOUTH EVERY 8 HOURS NEEDED [place] 10-325 mg oral tablet 10/31/2009 01/29/2010 take [...] 08/1508/15/2017 use with insulin 3 times daily Discontinued Name Start Date Discontinued Date SIG [...] EVERY DAY Cymbalta 30 mg oral capsule,delayed release(/EC) 02/03/2013 11/10/2013 take 1 capsule by oral [...] 1 TABLET BY MOUTH TWICE DAILY ERGOCALCIFEROL 32900 UNIT CAPS 09/07/2015 06/14/2016 Take 1 capsule [...] arthrosis Active Vital Signs Date Time BP-Sys(mm[Hg] BP-Atnika(mm[Hg]) HR(bpm) RR(rpm) Temp WT HT HC BMI BSA BMI Percentile O2 Sat(%) 10/14/2017 11:09:00 AM 142 mmHg 80 mmHg [...] Reviewed 06/15/2015 12:00 AM Rocephin 1 gram [facility]#[id number] Reviewed 09/04/2015 4:29 PM URINALYSIS AUTO W/O [...] 07/02/2016 12:00 AM Toradol 30 Mg Injection, [facility] Medicare Reviewed 07/02/2016 12:00 AM Phenergan 25mg Injection, [facility] Medicare Reviewed 07/18/2016 12:00 AM MRI [...] 9:08AM Constipation Jul 29 2013 9:08AM Myalgia Feb 4 2013 9:25AM Cough Oct 26 2013 9:03AM [...] 11:19AM Chronic pain Oct 14 2017 11:19AM Payers Insurance Name Company Name Plan Name Plan Number Policy Number Policy Group Number Start Date [facility] - [facility] [id number] N/A [facility] - [facility] [id number] N/A [place] Medical [place] [id number] Monday, 2009 [place] Cma Prog - [facility] Cma Prog - C [id number] N/A [facility] - [facility] [id number] July [facility] [id number] N/A History of Encounters Visit Date Visit Type Provider 10/14/2017 Office visit Viet Ji MD 08/06/2017 [...] MD 11/16/2011 Hospital Olegario Lay MD 11/15/2011 Hospital Corby Carlin MD 11/01/2011 Office visit Viet Ji MD 09/05/2011 Office visit Viet Ji MD 04/23/2011 Office visit Viet Ji MD 04/[facility]2011 [facility] Jenkins MD 04/14/2011 [facility] O[facility] Lay MD 04/09/2011 Office visit Viet Ji MD 03/15/2011 Office visit Sheron Marsh APRN 01/01/2011 Office visit Star Gomez MD 12/22/2010 Office visit Viet Ji MD 11/23/2010 Office visit Viet Ji MD 10/06/2010 Office visit Niranjan Castro MD 08/07/2010 Office visit Viet Ji MD 07/07/2010 [facility] Hom[facility] Jarrett MD 07/06/2010 [facility] 07/05/2010 [facility] Corby Carlin MD 06/19/2010 Office visit Viet Ji MD 06/01/2010 Office visit Viet Ji MD 05/04/2010 Office visit Viet Ji MD 04/07/2010 Office visit Viet Ji MD 03/31/2010 [facility] Hom[facility] Jarrett MD 03/30/2010 [facility] Hom[facility] Jarrett MD 03/29/2010 Laboratory Homero Jarrett MD 03/29/2010 [facility] Hom[facility] Jarrett MD 03/28/2010 [facility] Hom[facility] Jarrett MD 03/26/2010 [facility] Homero Jrarett MD 03/25/2010 [facility] Homero Jarrett MD 03/21/2010 Office visit Ray Gutiérrez MD 03/07/2010 Office visit Viet Ji MD 02/28/2010 [facility] Homero Jarrett MD 02/27/2010 [facility] Hom[facility] Jarrett MD 02/26/2010 [facility] Niranjan Castro MD 02/25/2010 [facility] Niranjan Castro MD 02/24/2010 [facility] Homero Jarrett MD 02/23/2010 Laboratory Homero Jarrett MD 02/15/2010 Office visit Ray Gutiérrez MD 02/06/2010 Office visit Viet Ji MD 02/02/2010 Office visit Ray Gutiérrez MD 01/22/2010 [facility] Homero Jarrett MD 01/21/2010 [facility] Hom[facility] Jarrett MD 01/20/2010 [facility] Hom[facility] Jarrett MD 01/19/2010 [facility] Homero Jarrett MD 01/17/2010 Office visit Viet Ji MD 01/10/2010 [facility] Homero Jarrett MD 01/08/2010 [facility] Lillie Licea MD 12/27/2009 Office visit Viet Ji MD 08/10/2009 Office visit Viet Ji MD 06/22/2009 Office visit Viet Ji MD 03/30/2009 Laboratory Viet Ji MD
[2018-07-24 23:00] LABS: AMMONIA 48 UMOL/L (11-32)
--- OUTSIDE RECORDS SUMMARY | 2018-07-24 23:01 | XMS REPORT ---
Demographics Address [address] [place] [address] Preferred Language Portuguese Marital Status Catholic Affiliation Unknown Race White Ethnic Group Not or Author Author Viet Ji [facility] Address [address] [place], [place] [phone] Care Team Providers Care Table Assembler Name Role Phone Viet Ji PCP Viet [...] CBC With Auto Differential 08/19/2012 12:00 AM Shoulder Min 2Views - Main 12/17/2017 12:00 AM Wrist 2Views - Main 12/17/2017 12:00 AM Finger 1-10 Min 2Views - Main 12/17/2017 12:00 AM Abdominal radiographs, complete (including decubitus/erect views) 2013 12:00 AM Comprehensive metabolic panel 07/29/2013 12:00 AM Urine Culture, [place] Count 07/29/2013 12:00 AM diabetic check copd, [...] 1 TABLET BY MOUTH ONCE EVERY DAY promethazine 25 mg oral tablet 10/24/2017 TAKE 1 TABLET BY MOUTH EVERY SIX HOURS NEEDED FOR NAUSEA fenofibrate nanocrystallized 145 mg oral tablet 11/05/2017 [...] MOUTH THREE TIMES DAILY NEEDED FOR COUGH amitriptyline 10 mg oral tablet 12/05/2017 take 1 tablet (10 mg) by oral route once daily at bedtime for 30 days potassium chloride 10 mEq oral tablet extended [...] TABLET BY MOUTH EVERY 8 HOURS NEEDED [place] 10-325 mg oral tablet 10/31/2009 01/29/2010 take [...] once daily at bedtime for 30 days Discontinued Name Start Date Discontinued Date [...] 1 TABLET BY MOUTH TWICE DAILY ERGOCALCIFEROL 35696 UNIT CAPS 09/07/2015 06/14/2016 Take 1 capsule [...] HC BMI BSA BMI Percentile O2 Sat(%) 12/17/2017 10:37:00 AM 126 mmHg 84 mmHg [...] Reviewed 06/15/2015 12:00 AM Rocephin [address] [facility]#[id number] Reviewed 09/04/2015 4:29 PM URINALYSIS AUTO W/O [...] 07/02/2016 12:00 AM Toradol 30 Mg Injection, [facility] Medicare Reviewed 07/02/2016 12:00 AM Phenergan 25mg Injection, [facility] Medicare Reviewed 07/18/2016 12:00 AM MRI [...] 12:00 AM CHEST X-RAY 2VW FRONTAL&LATL Returned 07/14/2013 12:00 AM IRRIG DRUG DELIVERY [...] Hand pain, right Dec 17 2017 10:38AM Payers Insurance Name Company Name Plan Name Plan Number Policy Number Policy Group Number Start Date [facility] [id number] N/A [facility] [id number] N/A [place] Medical [place] [facility] [place] Medical Assistance Prog [id number] Monday, 2009 [place] [employer] 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 - [facility] [id number] N/A [facility] [id number] July [facility] [id number] N/A History of Encounters Visit Date Visit Type Provider 12/17/2017 Office visit Viet Ji MD 10/14/2017 [...] visit Viet Ji MD 04/13/2012 Hospital Corby Cralin MD 04/03/2012 Office visit Viet Ji MD [...] MD 04/15/2011 Hospital Olegario Lay MD 04/15/2011 Hospital Jenny Jenkins MD 04/14/2011 Hospital Olegario Lay MD 04/09/2011 Office visit Viet Ji MD 03/15/2011 Office visit Sheron Marsh APRN 01/01/2011 Office visit Star Gomez MD 12/22/2010 Office visit Viet Ji MD 11/23/2010 Office visit Viet Ji MD 10/06/2010 Office visit Niranjan Castro MD 08/07/2010 Office visit Viet Ji MD 07/07/2010 [facility] Homero Jarrett MD 07/06/2010 [facility] Homero Jarrett MD 07/05/2010 [facility] Corby Carlin MD 06/19/2010 Office visit Viet Ji MD 06/01/2010 Office visit Viet Ji MD 05/04/2010 Office visit Viet Ji MD 04/07/2010 Office visit Viet Ji MD 03/31/2010 [facility] Homero Jarrett MD 03/30/2010 [facility] Homero Jarrett MD 03/29/2010 Laboratory Homero Jarrett MD 03/29/2010 [facility] Homero Jarrett MD 03/28/2010 [facility] Homero Jarrett MD 03/26/2010 [facility] Homero Jarrett MD 03/25/2010 [facility] Homero Jarrett MD 03/21/2010 Office visit Ray Gutiérrez MD 03/07/2010 Office visit Viet Ji MD 02/28/2010 [facility] Homero Jarrett MD 02/27/2010 [facility] Homero Jarrett MD 02/26/2010 [facility] Niranjan Castro MD 02/25/2010 [facility] Niranjan Castro MD 02/24/2010 [facility] Homero Jarrett MD 02/23/2010 Laboratory Homero Jarrett MD 02/15/2010 Office visit Ray Gutiérrez MD 02/06/2010 Office visit Viet Ji MD 02/02/2010 Office visit Ray Gutiérrez MD 01/22/2010 [facility] Homero Jarrett MD 01/21/2010 [facility] Homero Jarrett MD 01/20/2010 [facility] Homero Jarrett MD 01/19/2010 [facility] Homero Jarrett MD 01/17/2010 Office visit Viet Ji MD 01/10/2010 [facility] Homero Jarrett MD 01/08/2010 [facility] Lillie Licea MD 12/27/2009 Office visit Viet Ji MD 08/10/2009 Office visit Viet Ji MD 06/22/2009 Office visit Viet Ji MD 03/30/2009 Laboratory Viet Ji MD
--- OUTSIDE RECORDS SUMMARY | 2018-07-25 00:16 | XMS REPORT ---
Demographics Address [address] [place] [address] Preferred Language Yi Marital Status Confucianist Affiliation Unknown Race White Ethnic Group Not or Author Author Viet Ji [facility] Address [address] [place], [place] [phone] Care Team Providers Care Equipment Inspector Name Role Phone Viet Ji PCP [...] metabolic panel 07/29/2013 12:00 AM Urine Culture, [place] Count 07/29/2013 12:00 AM diabetic check copd, [...] take 1 tablet every 8hr prn nausea Pancreaze 4,200-14,200- 24,600 unit oral capsule,delayed release(DR/EC) [...] TABLET BY MOUTH ONCE EVERY DAY Shyam Mohamud 300 unit/mL (1.5 mL) subcutaneous [...] as needed. Dilaudid 4 mg oral tablet 09/16/2017 take 1 tablet every 8hr as needed hydrocodone-acetaminophen 10-325 mg oral tablet 09/16/2017 10/16/2017 take 1 tablet by oral route every 6 hours as needed for pain for 30 days Tessalon Perles 100 mg oral capsule 09/17/2017 take 1 capsule (100 mg) by oral route 3 times per day as needed for cough Name Start Date Expiration Date SIG Comments Augmentin 875-125 mg oral tablet 06/22/2009 07/06/2009 take 1 tablet by oral route every 12 hours for 14 days diazepam 5 mg oral tablet 08/03/2009 08/18/2009 TAKE 1 TABLET BY MOUTH EVERY 8 HOURS NEEDED [place] 10-325 mg oral tablet 10/31/2009 01/29/2010 take [...] Pancrease MT-4 4,000-12,000- 12,000 unit oral capsule,delayed release(/EC) 06/30/2010 07/30/2010 TAKE ONE CAPSULE BY MOUTH THREE TIMES DAILY BEFORE MEALS Xanax 1 mg oral tablet 08/24/2010 08/24/2010 take 1 tablet by oral route 3 times a day as needed Advair Diskus 100-50 mcg/dose inhalation blister with device 08/24/20102010 INHALE 1 PUFF BY MOUTH TWICE DAILY aspirin 81 mg oral tablet,delayed release (/EC) 10/31/2010 11/30/2010 TAKE 1 TABLET BY MOUTH [...] 1 TABLET BY MOUTH TWICE DAILY ERGOCALCIFEROL 11895 UNIT CAPS 09/07/2015 06/14/2016 Take 1 capsule [...] 06/15/2015 12:00 AM Rocephin [address] [facility]#[id number] Reviewed 09/04/2015 4:29 PM URINALYSIS AUTO W/O [...] 07/02/2016 12:00 AM Toradol 30 Mg Injection, [facility] Medicare Reviewed 07/02/2016 12:00 AM Phenergan 25mg Injection, [facility] Medicare Reviewed 07/18/2016 12:00 AM MRI [...] Number Policy Group Number Start Date [facility] [place] [id number] N/A [facility] [id number] N/A [place] Medical [place] Program [place] Pro[place] [id number] Monday, 2009 [place] [employer] [employer] [facility] [employer] Prog - [facility] [id number] N/A [facility] [id number] July [facility] [id number] N/A History of Encounters Visit Date Visit Type Provider 08/06/2017 Office visit Viet Ji MD 07/18/2017 Surgery Olegario Lay MD 07/09/2017 Procedures Olegario Lay MD 06/11/2017 Office visit Vite Ji MD 05/07/2017 Office visit Viet Ji [...] 11/30/2011 Office visit Viet Ji MD 11/17/2011 [facility] Olegario Lay MD 11/16/2011 Hospital Olegario Lay MD 11/15/2011 [facility] Corby Carlin MD 11/01/2011 Office visit Viet [...] 08/07/2010 Office visit Viet Ji MD 07/07/2010 [facility] Homero Jarrett MD 07/06/2010 [facility] Homero Jarrett MD 07/05/2010 [facility] Corby Carlin MD 06/19/2010 Office visit Viet Ji MD 06/01/2010 Office visit Viet Ji MD 05/04/2010 Office visit Viet Ji MD 04/07/2010 Office visit Viet Ji MD 03/31/2010 [facility] Homero Jarrett MD 03/30/2010 [facility] Homero Jarrett MD 03/29/2010 Laboratory Homero Jarrett MD 03/29/2010 [facility] Homero Jarrett MD 03/28/2010 [facility] Homero Jarrett MD 03/26/2010 [facility] Homero Jarrett MD 03/25/2010 [facility] Homero Jarrett MD 03/21/2010 Office visit Ray Gutiérrez MD 03/07/2010 Office visit Viet Ji MD 02/28/2010 [facility] Homero Jarrett MD 02/27/2010 [facility] Homero Jarrett MD 02/26/2010 [facility] Niranjan Castro MD 02/25/2010 [facility] Niranjan Castro MD 02/24/2010 [facility] Homero Jarrett MD 02/23/2010 Laboratory Homero Jarrett MD 02/15/2010 Office visit Ray Gutiérrez MD 02/06/2010 Office visit Viet Ji MD 02/02/2010 Office visit Ray Gutiérrez MD 01/22/2010 [facility] Homero Jarrett MD 01/21/2010 [facility] Homero Jarrett MD 01/20/2010 [facility] Homero Jarrett MD 01/19/2010 [facility] Homero Jarrett MD 01/17/2010 Office visit Viet Ji MD 01/10/2010 [facility] Homero Jarrett MD 01/08/2010 [facility] Lillie Licea MD 12/27/2009 Office visit Viet Ji MD 08/10/2009 Office visit Viet Ji MD 06/22/2009 Office visit Viet Ji MD 03/30/2009 Laboratory Viet Ji MD
--- OUTSIDE RECORDS SUMMARY | 2018-07-25 00:25 | XMS REPORT | CCD ---
Author Author MIR HARRIS Unknown Address [address] [place], [place] [address] Care Team Providers Care Education Specialist Name Role Phone GURPREET ER, QUEENIE DO Attphys EadBox ER, QUEENIE DO Prisurg ROCCO Wade NASST RUSLAN Taylor NASST Vital Signs Unknown. Allergies Allergy Code Allergy Type Reaction Status EGGS 0 Drug allergy (disorder) Active FLUARIX 2048402 Drug allergy (disorder) ADVERSE REACTION, VERY ILL, N/V Active FLUCAINE 174164 Drug allergy (disorder) Active TAPE 0 Allergy to substance (disorder) RASH, RASH, IRRITATION Active MORPHINE 7052 Drug allergy (disorder) HIVES, RENAL PROBLEMS, RASH, AFFECTS KIDNEYS Active PNEUMOVAX 23 287772 Drug allergy (disorder) Active Procedures Unknown. History of Immunizations Unknown. Problems Problem Code Start Date Resolved Date Status ABDOMINAL PAIN 24612 11/16/2011 Active GASTRITIS 9607991 11/16/2011 Active Results URINALYSIS, WITH C&S Test Name Code Test Result Test Units Test Date/ Time COLOR YELLOW N/A 01/15/2014 19:19 APPEARANCE CLEAR N/A 01/15/2014 19:19 SPEC GRAV 1.010 N/A 01/15/2014 19:19 pH 5.0 N/A 01/15/2014 19:19 PROTEIN NEGATIVE N/A 01/15/2014 19:19 GLUCOSE NEGATIVE N/A 01/15/2014 19:19 KETONE NEGATIVE N/A 01/15/2014 19:19 BILIRUBIN NEGATIVE N/A 01/15/2014 19:19 BLOOD NEGATIVE N/A 01/15/2014 19:19 NITRITE NEGATIVE N/A 01/15/2014 19:19 LEUK SCREEN SMALL N/A 01/15/2014 19:19 WBC/HPF 0-5 N/A 01/15/2014 19:19 RBC/HPF 0-5 N/A 01/15/2014 19:19 CASTS/LPF NEGATIVE N/A 01/15/2014 19:19 CRYSTALS NEGATIVE N/A 01/15/2014 19:19 MUCOUS THRDS NEGATIVE N/A 01/15/2014 19:19 BACTERIA FEW N/A 01/15/2014 19:19 EPITH CELLS FEW SQUAMOUS N/A 01/15/2014 19:19 TRICHOMONAS NEGATIVE N/A 01/15/2014 19:19 YEAST NEGATIVE N/A 01/15/2014 19:19 CULT ORDERED YES N/A 01/15/2014 19:19 RAPID DRUG SCREEN Test Name Code Test Result Test Units Test Date/ Time Cannabinoids (THC) NEGATIVE N/A 01/15/2014 19:19 Phencyclidine (PCP) NEGATIVE N/A 01/15/2014 19: 19 Cocaine NEGATIVE N/A 01/15/2014 19:19 Methamphetamine NEGATIVE N/A 01/15/2014 19:19 Opiates NON-NEGATIVE N/A 01/15/2014 19:19 Amphetamine NEGATIVE N/A 01/15/2014 19:19 Benzodiazepines NON-NEGATIVE N/A 01/15/2014 19: 19 Tricyclic Antidepres NEGATIVE N/A 01/15/2014 19: 19 Methadone NEGATIVE N/A 01/15/2014 19:19 Barbiturates NEGATIVE N/A 01/15/2014 19:19 Oxycodone NON-NEGATIVE N/A 01/15/2014 19:19 Propoxyphene (PPX) NEGATIVE N/A 01/15/2014 19:19 TROPONIN-I ADV Test Name Code Test Result Test Units Test Date[place] [address]-1 0.0400 ng/mL 01/15/2014 21: 45 MAGNESIUM Test Name Code Test Result Test Units Test Date/ Time MAGNESIUM 25495-4 1.7000 MG/DL 01/15/2014 19:00 BEDSIDE GLUCOSE Test Name Code Test Result Test Units Test Date/ Time GLUCOSE POCT 54.0000 MG/DL 01/15/2014 22:35 CBC W/ AUTO DIFF (RFLX MAN DIFF IF IND) Test Name Code Test Result Test Units Test Date/ Time WBC 95185-8 7.3000 TH/CMM 01/15/2014 19:00 RBC 789-8 5.5900 ML/CMM 01/15/2014 19:00 HGB 718-7 16.4000 G/DL 01/15/2014 19:00 HCT 4544-3 47.4000 % 01/15/2014 19:00 MCV 85.0000 FL 01/15/2014 19:00 MCH 29.3000 PG 01/15/2014 19:00 MCHC 34.6000 G/DL 01/15/2014 19:00 RDW SD 43.0000 FL 01/15/2014 19:00 RDW CV 13.9000 % 01/15/2014 19:00 MPV 10.5000 FL 01/15/2014 19:00 PLT 777-3 223.0000 TH/CMM 01/15/2014 19:00 NRBC# 0.0000 TH/CMM 01/15/2014 19:00 NRBC% 0.0000 /100WBC 01/15/2014 19:00 %NEUT 55.1000 % 01/15/2014 19:00 %LYMP 35.4000 % 01/15/2014 19:00 %MONO 6.4000 % 01/15/2014 19:00 %EOS 2.6000 % 01/15/2014 19:00 %BASO 0.5000 % 01/15/2014 19:00 #NEUT 4.0300 TH/CMM 01/15/2014 19:00 #LYMP 2.5900 TH/CMM 01/15/2014 19:00 #MONO 0.4700 TH/CMM 01/15/2014 19:00 #EOS 0.1900 TH/CMM 01/15/2014 19:00 #BASO 0.0400 TH/CMM 01/15/2014 19:00 MANUAL DIFF NOT IND N/A 01/15/2014 19:00 COMPREHENSIVE METABOLIC PANEL Test Name Code Test Result Test Units Test Date/ Time GLUCOSE 2345-7 114.0000 MG/DL 01/15/2014 19:00 SODIUM 2951-2 140.0000 MEQ/L 01/15/2014 19:00 POTASSIUM 2823-3 2.9000 MEQ/L 01/15/2014 19:00 CHLORIDE 2075-0 103.0000 MEQ/L 01/15/2014 19:00 CO2 2028-9 26.0000 MEQ/L 01/15/2014 19:00 BUN 3094-0 11.0000 MG/DL 01/15/2014 19:00 CREATININE 2160-0 1.1000 MG/DL 01/15/2014 19:00 SGOT/AST 1920-8 25.0000 IU/L 01/15/2014 19:00 SGPT/ALT 1742-6 22.0000 IU/L 01/15/2014 19:00 ALK PHOS 6768-6 89.0000 IU/L 01/15/2014 19:00 TOTAL PROTEIN 2885-2 7.6000 G/DL 01/15/2014 19:00 ALBUMIN 1751-7 4.2000 G/DL 01/15/2014 19:00 TOTAL BILI 1975-2 0.4000 MG/DL 01/15/2014 19:00 CALCIUM 55290-5 9.6000 MG/DL 01/15/2014 19:00 AGE 53.0000 yrs 01/15/2014 19:00 GFR NonAA 52.0000 01/15/2014 19:00 GFR AA 63.0000 01/15/2014 19:00 eGFR 52.0000 mL/min/1.7 01/15/2014 19:00 eGFR AA* 60.0000 mL/min/1.7 01/15/2014 19:00 TROPONIN-I ADV Test Name Code Test Result Test Units Test Date[place] [address]-2 0.0400 ng/mL 01/15/2014 19: 00 BNP Test Name Code Test Result Test Units Test Date/ Time BNP 47070-1 15.0000 PG/ML 01/15/2014 21:33 D DIMER QUANT Test Name Code Test Result Test Units Test Date/ Time D-DIMER QUANT 93150-9 0.1900 MG/L FEU 01/15/2014 21 :33 BEDSIDE GLUCOSE Test Name Code Test Result Test Units Test Date/ Time GLUCOSE POCT 54.0000 MG/DL 01/15/2014 22:37 BEDSIDE GLUCOSE Test Name Code Test Result Test Units Test Date/ Time GLUCOSE POCT 153.0000 MG/DL 01/15/2014 23:13 LIPASE Test Name Code Test Result Test Units Test Date/ Time LIPASE 3040-3 29.0000 U/L 01/15/2014 19:00 Medications Medication Code Dose Units Frequency Route Modification Start Date/Time Stop Date/Time NS 1000 ML IV [PREDEFINED] (7983) 359427 CONT IV IV 01/16/2014 00:09 ~~ NACL 0.9% (7983) 1000ML IV BAG 109636 5547 ML CREON 12 [PANCREALIPASE] CAPSULE 872390 1 EA MEALS PO 01/16/2014 00:10 FENOFIBRATE 145 MG (TRICOR) TAB 853691 145 MG DAILY PO 01/16/2014 00:10 CLOPIDOGREL [PLAVIX] TABLET: 75 MG 000064 75 MG DAILY PO 01/16/2014 00:10 POTASSIUM CHL [K DUR] TABLET: 20 MEQ 325362 20 MEQ BID PO 01/16/2014 00:10 PANTOPRAZOLE [PROTONIX] TABLET : 40 MG 676371 40 MG DAILY PO 01/16/2014 00:11 ONDANSETRON [ZOFRAN] INJ 4 MG/2 ML VIAL 315769 4 MG PRN SIVP 01/16/2014 00:09 Medications Administered Unknown. Encounters Unknown. Social History Smoking Status Code Start Date End Date Current every day smoker [id number] Patient Decision Aids Unknown. Discharge Instructions You were admitted to [facility] on 01/15/2014. You were discharged from [facility] on 01/16/2014. Should you have any questions prior to discharge, please contact a member of your healthcare team. If you have left the hospital and have any questions, please contact your primary care physician. Chief Complaint and Reason For Visit Chief Complaint Date of Onset DIZZINESS WEAKNESS Function Status Unknown. Referral/Transition of Care Unknown.
[2018-07-25] MEDS ORDERED: cefTRIAXone FOR IV USE 1,000 MG in NS (IVPB) 50 ML IV ONE (00:30)
[2018-07-25] MEDS ORDERED: ONDA8TAB13 PO (00:43)
[2018-07-25] MEDS ORDERED: HYOS0.1283 SL (00:43)
[2018-07-25] MEDS ORDERED: CEFD300C3 PO (00:43)
--- NOTE | 2018-07-25 00:43 | ED GI ---
General Chief Complaint: Abdominal/GI Problems Stated Complaint: N/V/D Nursing Triage Note: Pt arrived by EMS with cc of Nausea, Vomiting and Diarrhea for 3 days. EMS accessed pt's port prior to arrival and gave 4 of zofran. Pt stated she has 3-4 episodes of vomiting today and diarrhea twice. Pt stated she has chronic arm/legs/chest pain at a 9 and abd pain. Sepsis Screen: No Definite Risk Allergies and Home Medications Allergies Coded Allergies: adhesive tape (Verified Allergy, Unknown, 05/15/17) morphine (Verified Allergy, Unknown, 05/15/17) Home Medications Clonazepam 1 Mg Tablet, 1 MG PO Q8H PRN for ANXIETY, (Reported) Clopidogrel Bisulfate 75 Mg Tablet, 75 MG PO DAILY, (Reported) Diclofenac Sodium 100 Gm Gel..gram., 4 GM TOP DAILY, (Reported) Divalproex Sodium 500 Mg Tablet.dr, 500 MG PO BID, (Reported) TAKES ALONG WITH 250MG TABLET Divalproex Sodium 250 Mg Tablet.dr, 250 MG PO BID, (Reported) TAKES ALONG WITH 500MG TABLET Duloxetine HCl 30 Mg Capsule.dr, 30 MG PO DAILY, (Reported) Ergocalciferol (Vitamin D2) 50,000 Unit Capsule, 50,000 UNITS PO WEEKLY, ( Reported) Fenofibrate Nanocrystallized 145 Mg Tablet, 145 MG PO DAILY, (Reported) Fluticasone Propionate 16 Gm [place].susp, 2 SPRAYS NS DAILY PRN for ALLERGIES, ( Reported) Fluticasone/Vilanterol 1 Each Blst.w.dev, 1 PUFF INH DAILY, (Reported) Furosemide 40 Mg Tablet, 40 MG PO DAILY, (Reported) Hydrocodone/Acetaminophen 1 Each Tablet, 1 TAB PO Q6H PRN for PAIN-MODERATE, ( Reported) Hydromorphone HCl 4 Mg Tablet, 4 MG PO HS, (Reported) MAY TAKE EVERY 8 HOURS IF NEEDED Insulin Regular, Human 20 Ml Soln, 37 UNITS SC HS, (Reported) Insulin Regular, Human 20 Ml Soln, 17 UNITS SQ 1200, (Reported) Insulin Regular, Human 20 Ml Soln, 22 UNITS SQ 1700, (Reported) L. Acidophilus/Bulgaricus 1 Each Tablet, 1 TAB PO BID, (Reported) Lipase/Protease/Amylase 1 Each Capsule.dr, 4,200 UNITS PO TIDAC, (Reported) Lubiprostone 24 Mcg Capsule, 24 MCG PO BID, (Reported) LAST FILLED 04/16/17 #60 Metoclopramide HCl 10 Mg Tablet, 10 MG PO QID, (Reported) [place]-3 Acid Ethyl Esters 1 Gm Capsule, 2 GM PO BID, (Reported) TAKES 2 (1GM) CAPSULES Pantoprazole Sodium 40 Mg Tablet.dr, 40 MG PO DAILY, (Reported) Polyethylene Glycol 3350 255 Gm Powder, 17 GM PO DAILY PRN for CONSTIPATION-2ND LINE, (Reported) Potassium Chloride 10 Meq Tablet.er, 30 MEQ PO BID, (Reported) TAKES 3 (10MEQ) TABLETS Ramelteon 8 Mg Tablet, 8 MG PO HS, (Reported) Rosuvastatin Calcium 20 Mg Tablet, 20 MG PO HS, (Reported) Spironolactone 50 Mg Tablet, 50 MG PO DAILY, (Reported) Topiramate 200 Mg Tablet, 200 MG PO BID, (Reported) Zolpidem Tartrate 10 Mg Tablet, 10 MG PO HS, (Reported) Past Kpobfio-Arndyd-Trshmg Hx Patient Social History Alcohol Use: Denies Use Recreational Drug Use: No Smoking Status: Current Everyday Smoker Type Used: Cigarettes Recent Foreign Travel: No Contact w/Someone Who Travel: No Recent Infectious Disease Expo: No Recent Hopitalizations: No Physical Abuse: No Sexual Abuse: No Mistreated: No Fear: No Immunizations Up To Date Tetanus Booster (TDap): Unknown Seasonal Allergies Seasonal Allergies: Yes Past Medical History Surgeries: Yes Gallbladder, Hysterectomy, Orthopedic Respiratory: Yes COPD Cardiac: Yes (STENT X4 ?) High Cholesterol, Hypertension Neurological: Yes Seizure Disorder, Stroke Genitourinary: Yes Bladder Infection, Renal Failure Gastrointestinal: Yes Gastroesophageal Reflux, Pancreatitis Musculoskeletal: Yes Arthritis Endocrine: Yes Diabetes, Non-Insulin dep HEENT: No Cancer: No Psychosocial: Yes Depression Integumentary: No Family Medical History No Pertinent Family Hx Physical Exam Vital Signs Vital Signs - First Documented Capillary Refill : Less Than 3 Seconds Height/Weight/BMI Height: 5'0" Weight: 185lbs. 0oz. [id number]; 29.7 BMI Method:Stated Procedures/Interventions Date of ETT Placement: May 15, 2017 Time of ETT Placement: 1312 Progress/Results/Core Measures Results/Orders Lab Results Laboratory Tests Test 07/24/18 21:14 07/24/18 21:32 07/24/18 23:55 Range/Units White Blood Count 10.4 4.3-11.0 10^3/uL Red Blood Count 5.09 4.35-5.85 10^6/uL Hemoglobin 12.2 11.5-16.0 G/DL Hematocrit 40 35-52 % Mean Corpuscular Volume 79 L 80-99 FL Mean Corpuscular Hemoglobin 24 L 25-34 PG Mean Corpuscular Hemoglobin Concent 30 L 32-36 G/DL Red Cell Distribution Width 20.9 H 10.0-14.5 % Platelet Count 589 H 130-400 10^3/uL Mean Platelet Volume 9.6 7.4-10.4 FL Neutrophils (%) (Auto) 55 42-75 % Lymphocytes (%) (Auto) 34 12-44 % Monocytes (%) (Auto) 10 0-12 % Eosinophils (%) (Auto) 1 0-10 % Basophils (%) (Auto) 0 0-10 % Neutrophils # (Auto) 5.8 1.8-7.8 X 10^3 Lymphocytes # (Auto) 3.5 1.0-4.0 X 10^3 Monocytes # (Auto) 1.0 0.0-1.0 X 10^3 Eosinophils # (Auto) 0.1 0.0-0.3 10^3/uL Basophils # (Auto) 0.0 0.0-0.1 10^3/uL Prothrombin Time 12.5 12.2-14.7 SEC INR Comment 0.9 0.8-1.4 Activated Partial Thromboplast Time 27 24-35 SEC Sodium Level 138 135-145 MMOL/L Potassium Level 3.9 3.6-5.0 MMOL/L Chloride Level 96 L 98-107 MMOL/L Carbon Dioxide Level 30 21-32 MMOL/L Anion Gap 12 5-14 MMOL/L Blood Urea Nitrogen 15 7-18 MG/DL Creatinine 1.19 0.60-1.30 MG/DL Estimat Glomerular Filtration Rate 47 BUN/Creatinine Ratio 13 Glucose Level 44 *L 70-105 MG/DL Calcium Level 9.3 8.5-10.1 MG/DL Corrected Calcium 9.6 8.5-10.1 MG/DL Magnesium Level 2.1 1.8-2.4 MG/DL Total Bilirubin 0.2 0.1-1.0 MG/DL Aspartate Amino Transf (AST/SGOT) 14 5-34 U/L Alanine Aminotransferase (ALT/SGPT) 9 0-55 U/L Alkaline Phosphatase 78 40-136 U/L Ammonia 48 H 11-32 UMOL/L Total Creatine Kinase 104 29-168 U/L Creatine Kinase MB 3.0 <6.6 NG/ML Troponin I < 0.028 <0.028 NG/ML B-Type Natriuretic Peptide 43.9 <100.0 PG/ML Total Protein 6.7 6.4-8.2 GM/DL Albumin 3.6 3.2-4.5 GM/DL Amylase Level 42 25-125 U/L Lipase 39 8-78 U/L Acetaminophen Level < 10 L 10-30 UG/ML Valproic Acid (Depakene) Level 65.8 50.0-100.0 UG/ML Serum Alcohol < 10 <10 MG/DL Urine Color YELLOW Urine Clarity CLEAR Urine pH 7 5-9 Urine Specific [place] 1.010 L 1.016-1.022 Urine Protein NEGATIVE NEGATIVE Urine Glucose (UA) NEGATIVE NEGATIVE Urine Ketones NEGATIVE NEGATIVE Urine Nitrite NEGATIVE NEGATIVE Urine Bilirubin NEGATIVE NEGATIVE Urine Urobilinogen NORMAL NORMAL MG/DL Urine Leukocyte Esterase 2+ H NEGATIVE Urine RBC (Auto) NEGATIVE NEGATIVE Urine RBC NONE /HPF Urine WBC 10-25 H /HPF Urine Squamous Epithelial Cells 2-5 /HPF Urine Crystals NONE /LPF Urine Bacteria NONE /HPF Urine Casts NONE /LPF Urine Mucus NEGATIVE /LPF Urine Yeast FEW H /HPF Urine Culture Indicated YES Urine Opiates Screen POSITIVE H NEGATIVE Urine Oxycodone Screen NEGATIVE NEGATIVE Urine Methadone Screen NEGATIVE NEGATIVE Urine Propoxyphene Screen NEGATIVE NEGATIVE Urine Barbiturates Screen NEGATIVE NEGATIVE Ur Tricyclic Antidepressants Screen NEGATIVE NEGATIVE Urine Phencyclidine Screen NEGATIVE NEGATIVE Urine Amphetamines Screen NEGATIVE NEGATIVE Urine Methamphetamines Screen NEGATIVE NEGATIVE Urine Benzodiazepines Screen NEGATIVE NEGATIVE Urine Cocaine Screen NEGATIVE NEGATIVE Urine Cannabinoids Screen NEGATIVE NEGATIVE Glucometer 95 70-110 MG/DL My Orders Orders - LYNNE MANZO DO Saline Lock/Iv-Start (07/24/18 21:34) Ekg Tracing (07/24/18 21:34) Catheter(Urinary) Insert & Ass 03,15 (07/24/18 21:34) O2 (07/24/18 21:34) Monitor-Rhythm Ecg Trace Only (07/24/18 21:34) Acetaminophen (07/24/18 21:34) Alcohol (07/24/18 21:34) Ammonia (07/24/18 21:34) Amylase (07/24/18 21:34) BNP (07/24/18 21:34) Cbc With Automated Diff (07/24/18 21:34) Comprehensive Metabolic Panel (07/24/18 21:34) Creatine Kinase (07/24/18 21:34) Creatine Kinase Mb (07/24/18 21:34) Drug Screen Stat (Urine) (07/24/18 21:34) Lipase (07/24/18 21:34) Magnesium (07/24/18 21:34) Protime With Inr (07/24/18 21:34) Partial Thromboplastin Time (07/24/18 21:34) Troponin I (07/24/18 21:34) Ua Culture If Indicated (07/24/18 21:34) Valproic Acid (07/24/18 21:34) Saline Lock/Iv-Start (07/24/18 21:34) Ns Iv 1000 Ml (Sodium Chloride 0.9%) (07/24/18 21:34) Ondansetron Oral Dissolve Tab (Zofran (07/24/18 21:34) Hyoscyamine Sl Tablet (Levsin Sl Tablet) (07/24/18 21:45) Urine Culture (07/24/18 21:32) D50w (Emergency) Syringe (Dextrose 50% 5 (07/24/18 22:45) Acute Abd Series (07/24/18 22:42) Ct [place] Chest/Noang Abd-Pelv W (07/24/18 22:42) Ceftriaxone For Iv Use (Rocephin For I (07/25/18 00:30) Medications Given in ED Current Medications Medications Dose Ordered Sig/Marsha Route Start Time Stop Time Status Last Admin Dose Admin Dextrose 50 ml ONCE ONCE IV 07/24/18 22:45 07/24/18 23:01 DC 07/24/18 22:49 50 ML Hyoscyamine Sulfate 0.25 mg ONCE ONCE SL 07/24/18 21:45 07/24/18 21:46 DC 07/24/18 21:49 0.25 MG Sodium Chloride 1,000 ml @ 0 mls/hr Q0M ONCE IV 07/24/18 21:34 07/24/18 21:38 DC 07/24/18 21:49 1,000 MLS/HR Vital Signs/I&O 07/24/18 07/24/18 21:12 21:12 Temp 98.5 Pulse 89 Resp 20 B/P (MAP) 112/66 (81) Pulse Ox 92 92 O2 Delivery Nasal Cannula Nasal Cannula O2 Flow Rate 4.00 4.00 Blood Pressure Mean: 81 FSBG Bedside Testing Finger Stick Blood Glucose: 95 Blood Glucose Action Taken: Reported to [place] Progress Progress Note : Progress Note NAUSEA AND ABDOMINAL DISCOMFORT RESOLVED WITH MEDICATIONS PT HAD NO PAIN COMPLAINTS FOR REMAINDER OF ER STAY PT TOLERATING ICE CHIPS AND WATER PRIOR TO DISMISSAL NO DIARRHEA DURING ER STAY NO COUGH, FEVER, OR DIFFICULTY BREATHING AT ANY TIME GIVEN 1 AMP OF D50 AND BLOOD GLUCOSE UP TO 93 Departure Impression Primary Impression: Gastroenteritis Additional Impressions: Pneumonitis UTI (urinary tract infection) Hypoglycemia Disposition: HOME, SELF-CARE Condition: Improved Departure-Patient Inst. Referrals: ZOLTAN CARRINGTON MD (PCP/Family) Primary Care Physician Patient Instructions: Community-Acquired Pneumonia, Adult (DC), Low Blood Sugar in People With Diabetes, Urinary Tract Infection, Adult (DC), Viral Gastroenteritis, Adult (DC) Add. Discharge Instructions: CLEAR LIQUIDS--WATER, BROTH, JELLO, GATORADE TOMORROW IF YOU ARE BETTER, ADD BRATS DIET TO CLEAR LIQUIDS--BANANAS, RICE, APPLESAUCE, TOAST, SALTINES FOLLOW UP WITH YOUR DR IN 1-2 DAYS FOR RECHECK All discharge instructions reviewed with patient and/or family. Voiced understanding. Scripts Cefdinir (Cefdinir) 300 Mg Capsule 300 MG PO BID for FOR INFECTION, #20 CAP Prov: LYNNE MANZO DO 07/25/18 Hyoscyamine Sulfate (Levsin-Sl) 0.125 Mg Tab.subl 1-2 TAB SL Q4H for Abdominal Pain, #15 TAB Prov: LYNNE MANZO DO 07/25/18 Ondansetron (Ondansetron Odt) 8 Mg Tab.rapdis 8 MG PO Q6H for Nausea/Vomiting, #10 TAB Prov: LYNNE MANZO DO 07/25/18 LYNNE MANZO DO Jul 25, 2018 00:42
[2018-07-25] MEDS ORDERED: HEParin (CENTRAL IV FLUSH) 500 UNIT/5 ML SYR ONE (01:16)
[2018-07-25 01:20] VITALS: BP 120/81
[2018-07-25] MEDS ORDERED: HEParin (CENTRAL IV FLUSH) 500 UNIT/5 ML SYR IV ONE (01:30)
--- NOTE | 2018-07-25 07:14 | Diagnostic Imaging Report ---
INDICATION: Constipation. Abdominal series performed with frontal chest radiograph and supine and upright abdominal films. FINDINGS: Frontal chest view shows heart borderline in size with bibasilar atelectatic changes and increased interstitial markings. Port-A-Cath is seen with tip overlying the upper SVC. There is no free intraperitoneal air. The abdominal bowel gas pattern shows no overt obstruction. There is a large amount of stool throughout the colon compatible with constipation. There are surgical clips in the right upper quadrant. There are surgical clips overlying the right side of the pelvis. IMPRESSION: Large amount of stool throughout the colon compatible with marked constipation. No overt obstruction or ileus. Postsurgical changes. There are bibasilar atelectatic changes. There is no free intraperitoneal air. Dictated by: Dictated on workstation # [id number]
--- NOTE | 2018-07-25 07:35 | Diagnostic Imaging Report ---
INDICATION: Chest and abdominal pain with nausea, vomiting and diarrhea. CTA chest, CT abdomen and pelvis with contrast. Thin axial sections through the chest are obtained following intravenous contrast bolus. Multiplanar and MIP images reconstructed and reviewed. CT abdomen and pelvis was then obtained with contrast. There is calcific atherosclerosis of aorta, but no aneurysm or dissection. There is coronary atherosclerosis. There are no pulmonary emboli seen. There is diffuse peripheral interstitial infiltrate and/or fibrosis. There is no effusion or pneumothorax. IMPRESSION: Coronary atherosclerosis. Interstitial fibrosis. CT abdomen and pelvis: There is fatty infiltration of liver. Gallbladder is surgically absent. Pancreas appears normal. Spleen is not enlarged. Kidneys and adrenals appear normal. There is large amount of stool throughout the colon. Urinary bladder is decompressed with [place] catheter. Uterus is surgically absent. Small bowel is not dilated. There is no intraperitoneal free air or free fluid. IMPRESSION: No acute abnormality is seen in the abdomen or pelvis. I agree with preliminary interpretation. Dictated by: Dictated on workstation # [id number]
== END 2018-07-25 01:20 | disposition home or self-care (01) ==
LOC: EDUNIT# 21:09 → ER 21:10
DX: K52.9 Noninfective gastroenteritis and colitis, unspecified (principal); J18.9 Pneumonia, unspecified organism; N39.0 Urinary tract infection, site not specified; E11.649 Type 2 diabetes mellitus with hypoglycemia without coma; J44.9 Chronic obstructive pulmonary disease, unspecified; E78.00 Pure hypercholesterolemia, unspecified; I10 Essential (primary) hypertension; G40.909 Epilepsy, unspecified, not intractable, without status epilepticus; K21.9 Gastro-esophageal reflux disease without esophagitis; F32.9 Major depressive disorder, single episode, unspecified; F17.210 Nicotine dependence, cigarettes, uncomplicated; Z90.710 Acquired absence of both cervix and uterus; Z91.048 Other nonmedicinal substance allergy status; Z87.448 Personal history of other diseases of urinary system; Z87.19 Personal history of other diseases of the digestive system; Z86.73 Personal history of transient ischemic attack (TIA), and cerebral infarction without residual deficits; Z95.5 Presence of coronary angioplasty implant and graft; Z88.5 Allergy status to narcotic agent; Z79.02 Long term (current) use of antithrombotics/antiplatelets; Z79.51 Long term (current) use of inhaled steroids; Z79.4 Long term (current) use of insulin
CPT/HCPCS: 36415; 51702; 71275; 74022; 74177; 80053; 80164; 80306; 80320; 80329; 81000; 82140; 82150; 82550; 82553; 82962; 83690; 83735; 83880; 84484; 85025; 85610; 85730; 87088; 93005; 93041; 96361; 96365; 96375